=== PATIENT | male | born 1945 | race Caucasian/White ===

== ENCOUNTER 2017-10-05 07:29 | Inpatient (IN) ==
[2017-10-05] MEDS ORDERED: 0.9 % Sodium Chloride 1,000 ML IVC ONE ×2 (07:46→09:57)
[2017-10-05] MEDS ORDERED: *HR* FentaNYL (PF) 100 MCG/2 ML VIAL IVP ONE (07:46)
[2017-10-05] MEDS ORDERED: *HR* HYDROmorphone (PF) 1 MG/ML SYRINGE IVP ONE ×2 (08:24→09:44)
[2017-10-05 08:32] LABS: Basophils % 0.2 %; Eosinophils % 0.1 %; Hematocrit 39.5 % (37.5-50.1); Hemoglobin 13.7 g/dL (12.9-16.9); Immature Granulocytes % 0.4 % (0-4); Lymphocytes # 1.3 K/mcL (0.6-4.6); Lymphocytes % 8.5 %; Mean Corpuscular HGB Conc 34.7 g/dL (31.6-35.5); Mean Corpuscular Hemoglobin 33.3 pg (28.0-33.3); Mean Corpuscular Volume 95.9 fL (83.0-100.0); Mean Platelet Volume 10.5 fL (9.4-12.4); Monocytes # 2.1 K/mcL (0.0-1.3); Neutrophils # 11.4 K/mcL (1.6-8.9); Platelet Count 179 K/mcL (140-400); Red Blood Count 4.12 M/mcL (4.19-5.50); Red Cell Distribution Width 13.2 % (11.5-14.5); Segmented Neutrophils % 76.8 %
[2017-10-05 08:42] LABS: Alanine Aminotransferase 14 Units/L (7-52); Albumin 4.2 g/dL (3.5-5.7); Albumin/Globulin Ratio 1.4 (1.1-2.2); Alkaline Phosphatase 70 Units/L (34-104); Aspartate Amino Transferase 11 Units/L (13-39); BUN/Creatinine Ratio 15 (6-26); Bilirubin,Direct 0.4 mg/dL (0.0-0.2); Bilirubin,Indirect 0.8 mg/dL (0.0-1.2); Bilirubin,Total 1.2 mg/dL (0.3-1.0); Blood Urea Nitrogen 16 mg/dL (8-23); Calcium 9.5 mg/dL (8.6-10.3); Carbon Dioxide 25 mEq/L (23-29); Chloride 105 mEq/L (98-107); Glucose 119 mg/dL (70-105); Lipase 4 Units/L (11-82); Osmolality,Calculated 286 (280-300); Potassium 3.7 mEq/L (3.5-5.1); Sodium 137 mEq/L (136-145); Total Protein 7.2 g/dL (6.4-8.9); eGFR For African Americans > 60 (> 60); eGFR For Non-African Americans > 60 (> 60)
[2017-10-05 08:49] LABS: Bilirubin,Urine Negative (Negative); Blood,Urine Small (Negative); Clarity,Urine Clear (Clear); Color,Urine Dark Yellow (Yellow); Glucose,Urine (UA) Normal (Normal); Ketones,Urine Trace mg/dL (Negative); Leukocyte Esterase,Urine Trace (Negative); Nitrite,Urine Negative (Negative); PH,Urine 6.5 pH Units (5.0-8.0); Protein,Urine 30 mg/dL (Neg-Trace); Specific Gravity,Urine 1.024 (1.010-1.025); Urobilinogen,Urine Normal (Normal)
[2017-10-05 08:52] LABS: Bacteria,Urine None Seen per hpf (None-Few); Hyaline Casts,Urine None Seen per lpf (None-Few); RBC,Urine 15-30 per hpf (0-3); Squamous Epithelial Cell,Urine Many per lpf (None-Few); WBC,Urine 0-3 per hpf (0-3)
--- NOTE | 2017-10-05 08:52 | Emergency Department Note ---
Disposition Clinical Impression: Pulmonary embolism on right, Shortness of breath, Right upper quadrant pain, Pleuritic chest pain Disposition: Admitted As Inpatient Condition: Fair Time of Disposition: 10:55 Abdominal Pain HPI - General Chief Complaint: ED Abdominal Pain Stated Complaint: Right flank pain Time Seen by Provider: 10/05/17 07:34 Source: patient, EMS Nursing Notes Reviewed: Yes Vital Signs Reviewed: Yes - History of Present Illness HPI Narrative: 72-year-old male complains of right upper quadrant/left lower rib area pain 2 days. Patient states he woke up from sleep 2 days ago with a slight 1/10 irritating pain to the right upper quadrant that has progressed to 10/10 1 day later and is currently 8/10. Patient states pain is sharp and constant without radiation. Patient finds it hard to take a deep breath. 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 Pain Scale: 8 - Related Data Home Medications Medication Instructions Recorded Confirmed Aspirin Enteric Coated [Aspirin EC] 325 mg PO DAILY 10/05/17 10/05/17 Lisinopril [Zestril] 5 mg PO HS 10/05/17 10/05/17 Metoprolol XL (24 HR) Succ [Toprol 25 mg PO HS 10/05/17 10/05/17 XL] Omeprazole [PriLOSEC] 20 mg PO DAILY 10/05/17 10/05/17 Simvastatin [Zocor] 40 mg PO QPM 10/05/17 10/05/17 Allergies Allergy/AdvReac Type Severity Reaction Status Date / Time No Known Allergies Allergy Verified 10/05/17 07:50 Constitutional: Reports: fever, chills Eyes: Denies: vision change ENT ED: Denies: congestion Cardiovascular: Reports: chest pain Respiratory: Reports: cough Gastrointestinal: Reports: abdominal pain. Denies: nausea, vomiting, diarrhea Genitourinary: Denies: urgency, dysuria, frequency Musculoskeletal: Denies: back pain, neck pain Integumentary: Denies: rash Neurological: Denies: headache Abdominal Pain PMH - Past Medical History Medical history: Reports: no medical history Male Surgical History: Reports: coronary bypass (CABG) Psychiatric history: Reports: no psych history - Social History Smoking status: Current every day smoker Alcohol use: Reports: none Drug use: Reports: none Physical Exam Vital Signs Temperature 98.1 F 10/05/17 07:32 Pulse Rate 100 10/05/17 07:32 Respiratory Rate 22 10/05/17 07:32 Blood Pressure 155/107 10/05/17 07:32 O2 Sat by Pulse Oximetry 95 10/05/17 07:32 Temperature 98.1 F 10/05/17 07:32 Pulse Rate 96 10/05/17 08:42 Respiratory Rate 22 10/05/17 08:42 Blood Pressure 157/82 10/05/17 08:42 O2 Sat by Pulse Oximetry 96 10/05/17 08:42 Oxygen Delivery Oxygen Delivery Room Air 72-year-old male who is alert and oriented 3 and in acute distress secondary to pain in his right upper quadrant that is making it difficult for him to take deep breaths. Patient's currently afebrile slightly tachycardic and hypertensive - General Limitations: no limitations General appearance: alert - Head Head exam: atraumatic, normocephalic, normal inspection - Eye Eye exam: Present: normal appearance, PERRL, EOMI - ENT ENT exam: normal exam, normal oropharynx, mucous membranes moist - Neck Neck exam: Present: normal inspection, full ROM, trachea midline - Chest Chest inspection: Present: normal inspection, symmetric chest wall rise, tenderness (Right lower costal region along axillary line) - Cardiovascular Cardiovascular exam: Present: normal rhythm, tachycardia - Abdominal Exam Abdominal exam: Present: soft, tenderness, normal bowel sounds. Absent: distention, guarding, rebound, rigidity Abdominal tenderness: Present: RUQ - Extremities Exam Extremities exam: Present: normal inspection, full ROM. Absent: tenderness, pedal edema Course - Consultations Consultation #1: Radiology Dr. Saunders: PE RLL with infarc. no right ventricular strain. patent aorta with graft. Time: 11:05 Vital Signs Temperature 98.1 F 10/05/17 07:32 Pulse Rate 100 10/05/17 07:32 Respiratory Rate 22 10/05/17 07:32 Blood Pressure 155/107 10/05/17 07:32 O2 Sat by Pulse Oximetry 95 10/05/17 07:32 Temperature 99.1 F 10/05/17 16:34 Pulse Rate 91 10/05/17 16:34 Respiratory Rate 16 10/05/17 16:34 Blood Pressure 136/81 10/05/17 16:34 O2 Sat by Pulse Oximetry 98 10/05/17 16:34 Oxygen Delivery Oxygen Delivery Nasal Cannula Abdominal Pain - MDM Narrative Medical decision making narrative: Right upper quadrant/lower rib region pain with difficulty taking deep breaths concerning for PE, pneumonia, ACS/MS, hepatitis, vascular occlusion, renal infection, UTI, kidney stones 0800:D-dimer taken along with CT abdomen and pelvis to check for kidney stones and SBO. 0911: D-dimer elevated at 51,000: Concern for neoplasm, PE. Patient sent for CTA of chest and abdomen. CTA chest shows positive PE. Patient is being started on heparin for right sub- segmental PE. Patient does not have hypotension. Patient's labs are otherwise unremarkable outside of a slight elevation of WBC of 14.6. Current plan is for patient to be transferred because we do not have any available rooms for admission. Patient has been updated and accepts decision and plan. Patient's pain is well controlled at this time. Patient has had 50 g of fentanyl IV which had no effect on pain symptom and is therefore switched to dilaudid. Patient has been given 2 x 1 mg of Dilaudid IV, as well as Zofran for nausea from the medications. Dr. Kerns of [facility] accepted Pt for transfer at 1051hrs. 1220hrs: Unfortunately we were informed that they do not have a telemetry bed and patient will not be able to be transferred. 1322 hrs.: We have a bed available here now and Dr. Dhillon the hospitalist as accepted patient for admission at 1322 hrs. 1400: Dr. Foster of Vascular surgery has been consulted concerning patient's abdominal CT findings of aortic aneurysm and thrombus formation in aortic stent. - Lab Data Lab results reviewed: Yes I reviewed the patient's lab results. Lab results narrative: Short CBC 10/05/17 Range/Units 08:00 WBC 14.8 H (4.3-11.1) K/mcL Hgb 13.7 (12.9-16.9) g/dL Hct 39.5 (37.5-50.1) % Plt Count 179 (140-400) K/mcL Neutrophils # 11.4 H (1.6-8.9) K/mcL BMP 10/05/17 Range/Units 08:00 Sodium 137 (136-145) mEq/L Potassium 3.7 (3.5-5.1) mEq/L Chloride 105 (98-107) mEq/L Carbon Dioxide 25 (23-29) mEq/L BUN 16 (8-23) mg/dL Creatinine 1.08 (0.70-1.30) mg/dL Glucose 119 H (70-105) mg/dL Calcium 9.5 (8.6-10.3) mg/dL Cardiac Enzymes 10/05/17 Range/Units 08:00 Troponin I < 0.03 (< 0.04) ng/mL Liver Function 10/05/17 Range/Units 08:00 Total Bilirubin 1.2 H (0.3-1.0) mg/dL Direct Bilirubin 0.4 H (0.0-0.2) mg/dL AST 11 L (13-39) Units/L ALT 14 (7-52) Units/L Alkaline Phosphatase 70 (34-104) Units/L Albumin 4.2 (3.5-5.7) g/dL Urine 10/05/17 Range/Units 08:17 Urine Color Dark Yellow (Yellow) Urine Clarity Clear (Clear) Urine pH 6.5 (5.0-8.0) pH Units Ur Specific Odell 1.024 (1.010-1.025) Urine Protein 30 H (Neg-Trace) mg/dL Urine Glucose (UA) Normal (Normal) mg/dL Result diagrams: 10/05/17 08:00 10/05/17 08:00 Lab Results 10/05/17 10/05/17 10/05/17 Range/Units 08:00 08:00 08:00 WBC 14.8 H (4.3-11.1) K/mcL RBC 4.12 L (4.19-5.50) M/mcL Hgb 13.7 (12.9-16.9) g/dL Hct 39.5 (37.5-50.1) % MCV 95.9 (83.0-100.0) fL MCH 33.3 (28.0-33.3) pg MCHC 34.7 (31.6-35.5) g/dL RDW 13.2 (11.5-14.5) % Plt Count 179 (140-400) K/mcL MPV 10.5 (9.4-12.4) fL Immature Gran % 0.4 (0-4) % Seg Neutrophils % 76.8 % Lymphocytes % 8.5 % Monocytes % 14.0 % Eosinophils % 0.1 % Basophils % 0.2 % Neutrophils # 11.4 H (1.6-8.9) K/mcL Lymphocytes # 1.3 (0.6-4.6) K/mcL Monocytes # 2.1 H (0.0-1.3) K/mcL Eosinophils # 0.0 (0.0-0.6) K/mcL Basophils # 0.0 (0.0-0.2) K/mcL PT (9.4-12.1) Seconds INR APTT (26.0-36.0) Seconds D-Dimer (0-500) ng/mLFEU Sodium 137 (136-145) mEq/L Potassium 3.7 (3.5-5.1) mEq/L Chloride 105 (98-107) mEq/L Carbon Dioxide 25 (23-29) mEq/L BUN 16 (8-23) mg/dL Creatinine 1.08 (0.70-1.30) mg/dL Est GFR ( Amer) > 60 (> 60) Est GFR (Non-Af Amer) > 60 (> 60) BUN/Creatinine Ratio 15 (6-26) Glucose 119 H (70-105) mg/dL Calculated Osmolality 286 (280-300) Calcium 9.5 (8.6-10.3) mg/dL Total Bilirubin 1.2 H (0.3-1.0) mg/dL Direct Bilirubin 0.4 H (0.0-0.2) mg/dL Indirect Bilirubin 0.8 (0.0-1.2) mg/dL AST 11 L (13-39) Units/L ALT 14 (7-52) Units/L Alkaline Phosphatase 70 (34-104) Units/L Troponin I < 0.03 (< 0.04) ng/mL Serum Total Protein 7.2 (6.4-8.9) g/dL Albumin 4.2 (3.5-5.7) g/dL Globulin 3.0 (2.4-3.5) g/dL Albumin/Globulin Ratio 1.4 (1.1-2.2) Lipase 4 L (11-82) Units/L Urine Color (Yellow) Urine Clarity (Clear) Urine pH (5.0-8.0) pH Units Ur Specific Odell (1.010-1.025) Urine Protein (Neg-Trace) mg/dL Urine Glucose (UA) (Normal) mg/dL Urine Ketones (Negative) mg/dL Urine Blood (Negative) Urine Nitrite (Negative) Urine Bilirubin (Negative) Urine Urobilinogen (Normal) mg/dL Ur Leukocyte Esterase (Negative) Urine Microscopic RBC (0-3) per hpf Urine Microscopic WBC (0-3) per hpf Ur Squamous Epith Cells (None-Few) per lpf Urine Bacteria (None-Few) per hpf Hyaline Casts (None-Few) per lpf Ur Culture Indicated? (NO) 10/05/17 10/05/17 10/05/17 Range/Units 08:00 08:17 16:03 WBC (4.3-11.1) K/mcL RBC (4.19-5.50) M/mcL Hgb (12.9-16.9) g/dL Hct (37.5-50.1) % MCV (83.0-100.0) fL MCH (28.0-33.3) pg MCHC (31.6-35.5) g/dL RDW (11.5-14.5) % Plt Count (140-400) K/mcL MPV (9.4-12.4) fL Immature Gran % (0-4) % Seg Neutrophils % % Lymphocytes % % Monocytes % % Eosinophils % % Basophils % % Neutrophils # (1.6-8.9) K/mcL Lymphocytes # (0.6-4.6) K/mcL Monocytes # (0.0-1.3) K/mcL Eosinophils # (0.0-0.6) K/mcL Basophils # (0.0-0.2) K/mcL PT 13.0 H 14.2 H (9.4-12.1) Seconds INR 1.2 1.3 APTT 26.6 64.6 H D (26.0-36.0) Seconds D-Dimer 52481 H (0-500) ng/mLFEU Sodium (136-145) mEq/L Potassium (3.5-5.1) mEq/L Chloride (98-107) mEq/L Carbon Dioxide (23-29) mEq/L BUN (8-23) mg/dL Creatinine (0.70-1.30) mg/dL Est GFR ( Amer) (> 60) Est GFR (Non-Af Amer) (> 60) BUN/Creatinine Ratio (6-26) Glucose (70-105) mg/dL Calculated Osmolality (280-300) Calcium (8.6-10.3) mg/dL Total Bilirubin (0.3-1.0) mg/dL Direct Bilirubin (0.0-0.2) mg/dL Indirect Bilirubin (0.0-1.2) mg/dL AST (13-39) Units/L ALT (7-52) Units/L Alkaline Phosphatase (34-104) Units/L Troponin I (< 0.04) ng/mL Serum Total Protein (6.4-8.9) g/dL Albumin (3.5-5.7) g/dL Globulin (2.4-3.5) g/dL Albumin/Globulin Ratio (1.1-2.2) Lipase (11-82) Units/L Urine Color Dark Yellow (Yellow) Urine Clarity Clear (Clear) Urine pH 6.5 (5.0-8.0) pH Units Ur Specific Odell 1.024 (1.010-1.025) Urine Protein 30 H (Neg-Trace) mg/dL Urine Glucose (UA) Normal (Normal) mg/dL Urine Ketones Trace H (Negative) mg/dL Urine Blood Small H (Negative) Urine Nitrite Negative (Negative) Urine Bilirubin Negative (Negative) Urine Urobilinogen Normal (Normal) mg/dL Ur Leukocyte Esterase Trace H (Negative) Urine Microscopic RBC 15-30 H (0-3) per hpf Urine Microscopic WBC 0-3 (0-3) per hpf Ur Squamous Epith Cells Many H (None-Few) per lpf Urine Bacteria None Seen (None-Few) per hpf Hyaline Casts None Seen (None-Few) per lpf Ur Culture Indicated? NO. (NO) - Radiology Data Radiology results reviewed: Yes I reviewed the patient's radiology results. - EKG Data EKG attestation: Yes I reviewed and interpreted this EKG. EKG results narrative: EKG taken 10/05/2017 at 0737 hrs. shows sinus rhythm at at a rate of 96 beats minute with no acute ST elevations or depressions and 80s, no signs ischemia. No T-wave inversion in V2 or V3 area no S1Q3T3. No Brugada. Previous EKG for comparison taken 07/24/2006 shows sinus rhythm but has ST elevations in leads 1 aVL, V2 V3 and V4 V5 and V6 with reciprocal changes in II, III, and F aVF
[2017-10-05] MEDS ORDERED: Ondansetron 4 MG/2 ML VIAL IVP PRN ×2 (10:24→14:51)
[2017-10-05] MEDS ORDERED: *HR* Heparin 5,000 UNIT/ML VIAL IVP ONE (10:37)
[2017-10-05] MEDS ORDERED: *HR* Heparin 5,000 UNIT/ML VIAL IVP PRN (10:37)
[2017-10-05 10:54] LABS: INR 1.2
[2017-10-05 10:57] LABS: Activated Partial Thrombo Time 26.6 Seconds (26.0-36.0)
[2017-10-05] MEDS: Heparin 25,000 UNIT/500 ML D5W 25,000 UNIT/500 ML BAG IVC SCH (11:10)
[2017-10-05] MEDS ORDERED: *HR* Morphine 2 MG/ML SYRINGE IVP ONE (13:51)
[2017-10-05] MEDS ORDERED: Naloxone 0.4 MG/ML INJ IVP PRN (14:51)
[2017-10-05] MEDS ORDERED: Acetaminophen 325 MG TABLET PO PRN (14:51)
--- NOTE | 2017-10-05 15:14 | Internal Med History&Physical ---
Date of Encounter: 10/05/17 Time of Encounter: 14:00 Assessment and Plan (1) Pulmonary embolism on right Current visit: Yes Status: Acute Acute and unprovoked PE as seen on CTA of abdomen/pelvis today. D-dimer 51,866 on admission. CTA shows right lower lobe pulmonary embolism with parenchymal lung disease compatible with infarct and small nonocclusive segmental pulmonary embolus without evidence of infarct. Pt. denies previous anticoagulation. Continue heparin drip. Stair-step pain medications for pain mgmt. Vascular surgery consult ordered in ED. Patient to follow-up with hematology on an outpatient basis. Pt. discussed w/Dr. Dhillon who is in agreement w/plan of care. Pt. is high risk for further morbidity d/t current emboli, thrombosis of the right common femoral artery, hx, and risk factors of current tobacco abuse. Inpatient. (2) Pleuritic chest pain Current visit: Yes Status: Acute Acute right-sided chest pain w/deep inspiration for the past two days. CT of the abdomen/pelvis today w/contrast shows right lower lobe pulmonary emboli with parenchymal lung disease compatible with infarct. Small nonocclusive left lower lobe segmental pulmonary embolus without evidence of infarct. No definite findings of right ventricular strain. Pulmonary emphysema. Continue heparin drip. Supplemental O2 w/titration and SpO2 monitoring. (3) Leukocytosis Current visit: Yes Status: Acute Acute leukocytosis w/WBC of 14.8 on admission most likely reactive in nature d/ t current PE. Pt. denies recent illness or sx and is afebrile. Will monitor pt. and f/u labs. Order blood cultures if leukocytosis increases. Qualifiers: Leukocytosis type: unspecified Qualified Code(s): D72.829 - Elevated white blood cell count, unspecified (4) Tobacco abuse counseling Current visit: Yes Status: Acute Hx of chronic tobacco abuse. Pt. reports smoking 1 PPD currently. Pt. is willing to quit at this time d/t currently health issues. Dangers of tobacco abuse and methods for quitting discussed. Pt. denies need for nicotine patch at this time. 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 CTA of abdomen/pelvis today shows thrombosis of the right common femoral artery graft anastomosis extending into the proximal superficial and deep femoral arteries. Pt. denies anticoagulation or Plavix. Placed on heparin drip for current PE sx. Continue heparin drip. Vascular surgery consulted in ED. Monitor pt. closely. (6) Aortic aneurysm, abdominal Current visit: Yes Status: Chronic Hx of chronic abdominal aortic aneurysms. CT of the abdomen and pelvis today with contrast shows 4.3 cm aneurysm of the remnant abdominal aorta. There is an aneurysm of the excluded distal abdominal aorta which is completely thrombosed. No evidence of dissection. Pt. to f/u on OP basis. Qualifiers: Presence of rupture: without rupture Qualified Code(s): I71.4 - Abdominal aortic aneurysm, without rupture (7) DVT prophylaxis Current visit: Yes Status: Acute Patient placed on heparin drip d/t current PE. Monitor pt. for signs of bleeding. Internal Medicine - H&P: HPI Chief complaint: RUQ abdominal pain/Pain w/inspiration Admitted From: Emergency Dept Plans for Post Hospital Care: Home History of present illness: Mr. Sena is a 72 year old male with medical hx of CAD and coronary bypass and stent x1 presents from the ED w/chief complaint of RUQ abdominal pain that becomes worse w/deep inspirations for the past two days. States pain began as a 1 or 2/10 but became 10/10 today. Sharp and stabbing w/o radiation. Reports smoking 1 PPD. Pt. reports SOB but denies recent illness, fever, chills, nausea , vomiting, headache, changes in vision, chest pain, palpitations, cough, unusual bleeding, pedal edema, numbness, tingling, dizziness, lightheadedness, pre-syncope, or syncope. Past Med Surg Social Fam HX - Past Medical History Source: patient, old records reviewed Medical history: coronary artery disease Psychiatric history: no psych history - Past Surgical History Surgical History: angioplasty/stent (x1), coronary bypass (CABG), vascular surgery - Social History Smoking Status: Current every day smoker Packs per day: 1 PPD Smokeless Tobacco Status: No Alcohol use: none Drug use: none Current living situation: Home Activity Level: Independent ambulation Recent Out of Country Travel Within the Last 8 Weeks: No Exposure or Possible Exposure to Illness During Travel: No - Family History Father Race: Family Member Ethnicity: Non- Living Status: Age at : 62 Cause of : Leukemia Hx Family Cancer: Yes (Leukemia) Mother Race: Family Member Ethnicity: Non- Living Status: Age at : 93 Cause of : Old age Brother Race: Family Member Ethnicity: Non- Living Status: Age at : 71 Cause of : Prostate cancer Hx Family Cancer: Yes (Prostate) Sister Race: Family Member Ethnicity: Non- Living Status: Still Living Hx Family Medical Disorders: No Internal Medicine - H&P: Meds 3 Allergy/AdvReac Type Severity Reaction Status Date / Time No Known Allergies Allergy Verified 10/05/17 07:50 All Systems PM: A 10-system review of systems was performed and is negative for pertinent findings except as documented above in the HPI. - Constitutional Constitutional: no chills, no fever(s), no night sweats - EENT Eyes: no change in vision, no discharge, no pain, no photophobia Ears: no ear discharge, no ear pain, no tinnitus Nose, mouth and throat: no dysphagia, no nasal discharge, no neck pain, no sore throat - Breasts Breasts: as per HPI - Cardiovascular Cardiovascular ROS IM: as per HPI, dyspnea, dyspnea on exertion, no chest pain, no diaphoresis, no lightheadedness, no palpitations, no syncope - Respiratory Respiratory: as per HPI, dyspnea, dyspnea on exertion, pain on inspiration, no cough, no wheezing, no excessive phlegm production - Gastrointestinal Gastrointestinal: no abdominal pain, no diarrhea, no hematemesis, no hematochezia, no melena, no nausea, no vomiting - Genitourinary Genitourinary ROS male: as per HPI - Musculoskeletal Musculoskeletal ROS IM: no numbness, no tingling - Integumentary Integumentary IM: no rash, no unusual bruising - Neurological Neurological ROS: no confusion, no convulsions, no focal weakness, no numbness, no tingling, no tremor(s) - Psychiatric Psychiatric: as per HPI - Endocrine Endocrine IM: as per HPI - Hematologic/Lymphatic Hematologic/Lymphatic: no easy bruising - Allergic/Immunologic Allergic/Immunologic: as per HPI - Constitutional Vitals: Temp Pulse Resp BP Pulse Ox 98.0 F 96 21 154/80 96 10/05/17 13:45 10/05/17 13:45 10/05/17 13:45 10/05/17 13:45 10/05/17 13:45 General appearance: Present: cooperative, mild distress (Pain w/inspiration), A& O X 3, pleasant, answers questions appropriately - Head Head exam: Present: atraumatic, normocephalic - Eye Eye exam: Present: PERRL, conjuntiva pink, sclera anicteric Pupils: Present: PERRL - ENT ENT exam: Present: normal exam - Neck Neck exam general surgery: Present: normal inspection, supple, trachea midline. Absent: lymphadenopathy - Respiratory Respiratory exam: Present: accessory muscle use (D/t pain w/inspiration), CTAB. Absent: rales, rhonchi, wheezes - Cardiovascular Cardiovascular exam: Present: RRR, +S1, +S2. Absent: diastolic murmur, gallop, rubs, systolic murmur - GI/Abdominal GI/Abdominal exam: Present: normal bowel sounds, soft, tenderness (RUQ), no peritoneal signs. Absent: distended - Rectal Rectal exam: Present: deferred - Additional comments: exam deferred. - Extremities Exam Extremities exam: Present: warm, radial pulses palpable and symmetrical. Absent : calf tenderness, cyanotic, pedal edema - Back Exam Back exam: Present: normal inspection - Neurological Exam Neurological exam: Present: CN II-XII intact, oriented X3, no focal deficits. Absent: pronater drift, facial droop, speech deficit - Psychiatric Psychiatric exam: Present: anxious, normal mood - Skin Skin exam: Present: dry, intact Internal Med - H&P Results - Labs CBC & Chem 7: 10/05/17 08:00 10/05/17 08:00 - EKG Data EKG shows normal: sinus rhythm - EKG Data Prior EKG available for review: yes EKG comments: 10/05/17 15:20 EKG dated 07/24/06 sinus rhythm with possible acute anteroseptal infarct, lateral ST elevation, consider acute infarct, inferior ST-T change suggesting myocardial injury/ischemia. EKG dated 10/05/17 shows sinus rhythm with incomplete right bundle branch block. - Diagnostic Studies Chest x-ray Additional comments: Impressions Chest X-Ray 10/05/17 07:46 IMPRESSION: 1. Bibasilar subsegmental atelectasis. D/ / Perez Smith MD / Perez Smith MD Interpreting Provider: Perez Smith MD CT scan - abdomen Additional comments: Impressions Abdomen/Pelvis CT 10/05/17 08:22 IMPRESSION: Right lower lobe airspace disease consistent with pneumonia. No pleural effusion is visible. No evidence of acute abnormality in the abdomen or pelvis. Cholelithiasis. Urinary bladder diverticulum versus ureterocele. Prior aortic-iliac bypass grafting, with dilation of proximal abdominal aorta measuring up to 3.4 cm. Consider direct comparison with any prior outside imaging. The distal iliac grafts appear dilated, greater on the right. RECOMMENDATIONS: Managing Abdominal Aortic Aneurysms 2.6-2.9 cm: Every 5 years* 3.0-3.4 cm: Every 3 years. 3.5-3.9 cm: Every 1 year. 4.0-4.4 cm: Every 1 year. Recommend vascular consultation. 4.5-5.4 cm: Every 6 months. Recommend vascular consultation. Greater than or equal to 5.5 cm: Referral to vascular surgeon. *For abdominal aortas with maximum diameter of 2.6-2.9 cm meeting criteria for AAA (>50% of proximal normal segment). Reference: J Vasc Surg. 2008;50(4 Suppl):S2-49 D/ / William Olivares MD / William Olivares MD Interpreting Provider: William Olivares MD Other Images Additional comments: Impressions Chest CTA 10/05/17 09:57 IMPRESSION: 1. Right lower lobe pulmonary emboli with parenchymal lung disease compatible with infarct. Small nonocclusive left lower lobe segmental pulmonary embolus without evidence of infarct. No definite findings of right ventricular strain 2. Status post aortobifemoral bypass. There is 4.3 cm aneurysm of the remnant abdominal aorta. There is aneurysm of the excluded distal abdominal aorta which is completely thrombosed. There is thrombosis at the right common femoral artery -graft anastomosis extending into the proximal superficial and deep femoral arteries. 3. Pulmonary emphysema 4. Cholelithiasis 5. Colonic diverticulosis 6. Prostatic enlargement RECOMMENDATIONS: Managing Abdominal Aortic Aneurysms 2.6-2.9 cm: Every 5 years* 3.0-3.4 cm: Every 3 years. 3.5-3.9 cm: Every 1 year. 4.0-4.4 cm: Every 1 year. Recommend vascular consultation. 4.5-5.4 cm: Every 6 months. Recommend vascular consultation. Greater than or equal to 5.5 cm: Referral to vascular surgeon. *For abdominal aortas with maximum diameter of 2.6-2.9 cm meeting criteria for AAA (>50% of proximal normal segment). D/ / Jae Saunders MD / Jae Saunders MD Interpreting Provider: Jae Saunders MD Abdomen/Pelvis CTA 10/05/17 10:00
--- NOTE | 2017-10-05 15:52 | Vascular/Endovasc Consult Note ---
Date of Encounter: 10/06/17 Time of Encounter: 15:49 Assessment and Plan (1) PAD (peripheral artery disease) Current Visit: Yes Status: Chronic The patient has significant bilateral lower extremity vascular occlusive disease. This is evidenced by lack of palpable popliteal and pedal pulses bilaterally. He also has significant claudication symptoms. I believe this is a long-standing process. This is not an acute event. This can be worked up and dealt with on an elective basis. This will require a rather complex repair as he needs attention addressed to his aortoiliac system as well as to his femoral popliteal system. (2) Femoral artery pseudo-aneurysm, right Current Visit: Yes Status: Chronic The patient has a relatively large right femoral pseudoaneurysm related to his aortobifemoral bypass graft that was performed approximately 25 years ago. It would appear that the patient has thrombosed his common femoral artery as well as the superficial femoral and profunda femoris artery. Most likely he will require rather extensive reconstruction of the right groin vessels and then some type of bypass graft for the right lower extremity. Again this is a chronic process and can be dealt with in the future once his pulmonary embolism has been treated. (3) Femoral artery pseudo-aneurysm, left Current Visit: Yes Status: Chronic Please see comments for right femoral pseudoaneurysm. This is a chronic process. This will need to be dealt with in the future with open and direct vascular reconstruction. (4) Pulmonary embolism on right Current Visit: Yes Status: Acute Patient is symptomatic from pulmonary emboli. The patient actually has pulmonary emboli in both the right lower lobe and left lower lobe. There are multiple emboli in the right lower lobe. There is nonocclusive process in the left lower lobe. Patient is on intravenous heparin. (5) Aortic aneurysm, abdominal Current Visit: Yes Status: Chronic Patient has an abdominal aortic aneurysm. The distal infrarenal aneurysm is thrombosed. The DelcidEliecer process involves the juxtarenal aneurysm and the graft. This will need further follow-up at this time is not at an acute process and is not symptomatic. Qualifiers: Presence of rupture: without rupture Qualified Code(s): I71.4 - Abdominal aortic aneurysm, without rupture - History of Present Illness Consult date: 10/05/17 Consult reason: Abdominal aortic aneurysms Chief complaint: Chest pain and shortness of breath History of present illness: Mr. Sena is a 72 year old male Who was admitted via the emergency room because of worsening chest pain over the past 2 days. Diagnosis of this lead to the finding of bilateral lower lobe pulmonary emboli with a large amount of pulmonary embolic material in the right lower lobe and all small amount that is nonocclusive in the left lower lobe. Patient was admitted and placed on intravenous heparin drip. As part of his evaluation because of right upper quadrant and right lower chest pain a CT scan was performed of the chest and abdomen and pelvis. This demonstrated a previous aortobifemoral bypass graft as well as aneurysmal changes of the abdominal aorta. On interviewing the patient he tells me that he underwent surgery for blocked arteries in his legs about 25 years ago here at [facility]. He does not recall the name of the surgeon that performed the operation. He states that when they perform the surgery they encountered the aneurysm that was not previously suspected. Therefore I believe that they most likely encountered a thrombosed abdominal aortic aneurysm that was not appreciated on the preoperative evaluation. The patient states that overall he been feeling well and after his bypass surgery his legs have returned to normal. This changed however about 2 years ago when he had recurrence of his symptoms. This is more noticeable to him in the right lower extremity versus the left. His walking tolerance is no more than about 100 yards. He states that he had gone up to the [facility] in [place] and it seen a physician there and had a CAT scan performed about 4 years ago. The findings on the CAT scan at that time did not indicate surgery and the patient did not proceed with any intervention. He has not had any formal vascular surgery follow-up or noninvasive testing for some time. The patient also relates to an episode of chest pain. He had a cardiac catheterization and a stent placed at [facility] about 10 years ago. Past Med Surg Social Fam HX - Past Medical History Medical history: coronary artery disease Psychiatric history: no psych history - Past Surgical History Surgical History: angioplasty/stent (x1), coronary bypass (CABG), vascular surgery (Aortobifemoral bypass graft) - Social History Smoking Status: Current every day smoker Packs per day: 1 PPD Smokeless Tobacco Status: No Alcohol use: none Drug use: none - Family History Father Race: Family Member Ethnicity: Non- Living Status: Age at : 62 Cause of : Leukemia Hx Family Cancer: Yes (Leukemia) Mother Race: Family Member Ethnicity: Non- Living Status: Age at : 93 Cause of : Old age Brother Race: Family Member Ethnicity: Non- Living Status: Age at : 71 Cause of : Prostate cancer Hx Family Cancer: Yes (Prostate) Sister Race: Family Member Ethnicity: Non- Living Status: Still Living Hx Family Medical Disorders: No Medications and Allergies Aspirin Enteric Coated [Aspirin EC] 325 mg PO DAILY 10/05/17 [History] Lisinopril [Zestril] 5 mg PO HS 10/05/17 [History] Metoprolol XL (24 HR) Succ [Toprol XL] 25 mg PO HS 10/05/17 [History] Omeprazole [PriLOSEC] 20 mg PO DAILY 10/05/17 [History] Simvastatin [Zocor] 40 mg PO QPM 10/05/17 [History] 3 Allergy/AdvReac Type Severity Reaction Status Date / Time No Known Allergies Allergy Verified 10/05/17 07:50 All Systems Review: A 10-system review of systems was performed and is negative for pertinent findings except as documented above in the HPI. Exam Vital Signs, Last 4 Hours Temp Pulse Resp BP Pulse Ox 10/05/17 13:45 98.0 F 96 21 154/80 96 General: Present: Conversant, No Apparent Distress, Well developed, Well nourished HEENT: Present: Atraumatic, Normocephaly, Trachea midline, Pupils equal Neck: Absent: JVD, Lymphadenopathy, Left Carotid bruit, Right Carotid bruit, Midline deformity, Tracheal deviation, Thyromegaly Cardiac: Present: Reg Rate and Rhythm, Normal S1 and S2, Other (Low grade tachycardia) Lungs: Present: Decreased breath sounds Neuro: Present: Alert and responsive, No focal deficits noted, Cranial nerves grossly intact Abdomen: Present: Soft, Non-tender, Other (No abdominal bruits. No palpable or pulsatile masses.). Absent: Masses Vascular: Present: Bruit (The patient has bilateral femoral bruits), Pulse, absent (I do not palpate popliteal or pedal pulses on either side.), Pulse, normal (Bilateral femoral pulses are palpable), Color/Temperature (The color and temperature of his feet are within normal limits.), Surgical incisions (Old vertical midline incision of abdomen is well-healed.). Absent: Cyanosis, Edema Skin: Absent: No rashes noted on visualized skin, Wound/ulcer(s) Consult Discharge Plan - Plan Additional Instructions: The patient will need further vascular testing including a CT abdominal aortogram with runoff. I anticipate the patient will require further intervention including repair of the right femoral pseudoaneurysm as well as possible right femoral popliteal bypass grafting and possible endovascular intervention. The patient will also need follow-up CT scans of the abdomen to evaluate his aneurysms. Referrals: Kelvin Bhatia DO [Family Provider] - [facility] [Primary Care Provider] -
[2017-10-05 16:14] LABS: INR 1.3; Prothrombin Time 14.2 Seconds (9.4-12.1)
[2017-10-05] MEDS ORDERED: Mag Hydrox/Al Hydrox/Simeth 30 ML UDC PO PRN (16:38)
[2017-10-05] MEDS: *HR* Morphine 2 MG/ML SYRINGE IVP PRN (18:43)
[2017-10-05 19:14] LABS: Activated Partial Thrombo Time 64.6 Seconds (26.0-36.0)
[2017-10-05] MEDS: *HR* HYDROcodone/Acet 5/325 mg TABLET PO PRN (20:12)
[2017-10-05] MEDS: Metoprolol XL (24 HR) Succ 25 MG TAB.ER.24H PO SCH (21:51)
[2017-10-06] MEDS: *HR* Morphine 2 MG/ML SYRINGE IVP PRN ×4 (00:31→17:50)
[2017-10-06] MEDS: *HR* HYDROcodone/Acet 5/325 mg TABLET PO PRN ×3 (00:31→07:33)
[2017-10-06] MEDS: *HR* Heparin 5,000 UNIT/ML VIAL IVP PRN ×2 (01:29→08:43)
[2017-10-06 05:24] LABS: Basophils % 0.2 %; Eosinophils # 0.1 K/mcL (0.0-0.6); Eosinophils % 0.4 %; Hematocrit 35.6 % (37.5-50.1); Hemoglobin 12.8 g/dL (12.9-16.9); Immature Granulocytes % 0.4 % (0-4); Lymphocytes # 1.8 K/mcL (0.6-4.6); Lymphocytes % 12.8 %; Mean Corpuscular Hemoglobin 34.4 pg (28.0-33.3); Mean Corpuscular Volume 95.7 fL (83.0-100.0); Mean Platelet Volume 10.6 fL (9.4-12.4); Monocytes # 1.9 K/mcL (0.0-1.3); Monocytes % 13.4 %; Neutrophils # 10.3 K/mcL (1.6-8.9); Platelet Count 172 K/mcL (140-400); Red Blood Count 3.72 M/mcL (4.19-5.50); Red Cell Distribution Width 13.4 % (11.5-14.5); Segmented Neutrophils % 72.8 %
[2017-10-06 05:29] LABS: INR 1.3; Prothrombin Time 13.9 Seconds (9.4-12.1)
[2017-10-06 05:42] LABS: Hemoglobin A1C 5.2 %
[2017-10-06 05:51] LABS: Alanine Aminotransferase 10 Units/L (7-52); Albumin 3.4 g/dL (3.5-5.7); Albumin/Globulin Ratio 1.3 (1.1-2.2); Alkaline Phosphatase 56 Units/L (34-104); Aspartate Amino Transferase 13 Units/L (13-39); BUN/Creatinine Ratio 13 (6-26); Bilirubin,Total 0.8 mg/dL (0.3-1.0); Blood Urea Nitrogen 12 mg/dL (8-23); Calcium 8.4 mg/dL (8.6-10.3); Carbon Dioxide 23 mEq/L (23-29); Chloride 106 mEq/L (98-107); Chol/HDL Ratio 3.5 (0-4.9); Cholesterol 101 mg/dL (< 200); Globulin 2.6 g/dL (2.4-3.5); Glucose 113 mg/dL (70-105); HDL Cholesterol 29 mg/dL (40-59); LDL Cholesterol,Calculated 58 mg/dL (0-99); Magnesium 1.9 mg/dL (1.6-2.6); Osmolality,Calculated 279 (280-300); Potassium 3.6 mEq/L (3.5-5.1); Sodium 134 mEq/L (136-145); Triglycerides 68 mg/dL (< 150); eGFR For African Americans > 60 (> 60); eGFR For Non-African Americans > 60 (> 60)
[2017-10-06] MEDS: Heparin 25,000 UNIT/500 ML D5W 25,000 UNIT/500 ML BAG IVC SCH (07:32)
[2017-10-06] MEDS ORDERED: Aspirin Enteric Coated 325 MG Tablet PO SCH (09:00)
--- NOTE | 2017-10-06 11:33 | Vascular/Endovas Progress Note ---
Date of Encounter: 10/06/17 Time of Encounter: 08:30 - Assessment and plan (1) PAD (peripheral artery disease) Current Visit: Yes Status: Chronic The patient has significant bilateral lower extremity vascular occlusive disease. This is evidenced by lack of palpable popliteal and pedal pulses bilaterally. He also has significant claudication symptoms. I believe this is a long-standing process. This is not an acute event. This can be worked up and dealt with on an elective basis. This will require a rather complex repair as he needs attention addressed to his aortoiliac system as well as to his femoral popliteal system. (2) Femoral artery pseudo-aneurysm, right Current Visit: Yes Status: Chronic The patient has a relatively large right femoral pseudoaneurysm related to his aortobifemoral bypass graft that was performed approximately 25 years ago. It would appear that the patient has thrombosed his common femoral artery as well as the superficial femoral and profunda femoris artery. Most likely he will require rather extensive reconstruction of the right groin vessels and then some type of bypass graft for the right lower extremity. Again this is a chronic process and can be dealt with in the future once his pulmonary embolism has been treated. (3) Femoral artery pseudo-aneurysm, left Current Visit: Yes Status: Chronic Please see comments for right femoral pseudoaneurysm. This is a chronic process. This will need to be dealt with in the future with open and direct vascular reconstruction. (4) Pulmonary embolism on right Current Visit: Yes Status: Acute Patient is symptomatic from pulmonary emboli. The patient actually has pulmonary emboli in both the right lower lobe and left lower lobe. There are multiple emboli in the right lower lobe. There is nonocclusive process in the left lower lobe. Patient is on intravenous heparin. (5) Aortic aneurysm, abdominal Current Visit: Yes Status: Chronic Patient has an abdominal aortic aneurysm. The distal infrarenal aneurysm is thrombosed. The Delcid K process involves the juxtarenal aneurysm and the graft. This will need further follow-up at this time is not at an acute process and is not symptomatic. Qualifiers: Presence of rupture: without rupture Qualified Code(s): I71.4 - Abdominal aortic aneurysm, without rupture - Subjective Interval history: Mr. Sena Had uneventful night. He states he is able to breathe better today and is able to take a deep breath. He has been hemodynamically stable. I reviewed his noninvasive testing. This shows an ankle-brachial index of 0.32 on the right and 0.56 on the left. The duplex scan demonstrates a thrombosed right common femoral artery pseudoaneurysm. The left common femoral pseudoaneurysm remains patent. There is also suggestive aneurysms or pseudoaneurysms of the distal external iliac artery bilaterally. The patient has diffuse occlusions of the right superficial femoral, popliteal, and proximal tibial system on the right. The patient has an occluded left superficial femoral artery. Vital Signs, Last 4 Hours Temp Pulse Resp BP Pulse Ox 10/06/17 07:58 98.3 F 79 17 126/74 98 - Physical Examination General: Present: Conversant, No Apparent Distress HEENT: Present: Atraumatic Neck: Absent: JVD Vascular: Present: Pulse, absent (Patient has no palpable pulses at the popliteal or pedal level bilaterally.), Color/Temperature (The right foot is cooler and paler than the left.) Results 10/06/17 05:09 10/06/17 05:09 Lab Results, Last 24 hours 10/06/17 10/06/17 10/06/17 00:02 05:09 05:09 WBC 14.2 H Hgb 12.8 L Hct 35.6 L Plt Count 172 INR 1.3 APTT 46.2 H 72.0 H D Sodium Potassium Chloride Carbon Dioxide BUN Creatinine Glucose Calcium Magnesium Total Bilirubin AST ALT Alkaline Phosphatase 10/06/17 10/06/17 05:09 08:04 WBC Hgb Hct Plt Count INR APTT 52.7 H Sodium 134 L Potassium 3.6 Chloride 106 Carbon Dioxide 23 BUN 12 Creatinine 0.89 Glucose 113 H Calcium 8.4 L Magnesium 1.9 Total Bilirubin 0.8 AST 13 ALT 10 Alkaline Phosphatase 56 - Imaging / Other Tests Non Invasive Vascular Testing: report reviewed, image reviewed Consult Discharge Plan - Plan Additional Instructions: The patient will need further vascular testing including a CT abdominal aortogram with runoff. I anticipate the patient will require further intervention including repair of the right femoral pseudoaneurysm as well as possible right femoral popliteal bypass grafting and possible endovascular intervention. The patient will also need follow-up CT scans of the abdomen to evaluate his aneurysms. Referrals: Kelvin Bhatia DO [Family Provider] - [facility] [Primary Care Provider] -
--- NOTE | 2017-10-06 15:00 | Internal Med Progress Note ---
Date of Encounter: 10/06/17 Time of Encounter: 09:30 - Assessment and plan (1) Pulmonary embolism on right Current Visit: Yes Status: Acute Assessment and plan: 72-year-old male with past history of CAD and coronary bypass with stent 1 presented to ED complaining of right upper abdominal pain worse with inspiration. Reports history of DVTs. Chest x-ray demonstrated bibasilar subsegmental atelectasis. EKG is independently read and is normal sinus rhythm with no signs of ischemia. CTA confirmed right lower lobe pulmonary embolism with parenchymal lung disease compatible with infarct and small nonocclusive left lower lobe segmental pulmonary embolism without evidence of infarct. No evidence of right ventricular strain noted. Patient was started on heparin drip and aspirin. She reports improvement of dyspnea. Patient's kidney function is good and at baseline; continue with Prilosec and Zofran for GI prophylaxis. Continue pain management with Tylenol, Emelle 5, morphine as needed. Lovenox is preferred over unfractionated heparin due to longer duration of anticoagulation effect, better correlation between those and then the globulin response, lower risk of heparin-induced from a cytopenia, lower incidence of osteoporosis. Start Lovenox at 6 PM today discontinue heparin drip at 7 PM today. Monitor with a.m. labs (2) Shortness of breath Current Visit: Yes Status: Acute Assessment and plan: Improved. Shortness of breath likely secondary to right-sided pulmonary embolism. Continue with oxygen therapy as needed with goal of oxygen saturation greater than 92%. Managed per PE treatment. (3) Right upper quadrant pain Current Visit: Yes Status: Acute Assessment and plan: Resolved. (4) Pleuritic chest pain Current Visit: Yes Status: Acute Assessment and plan: Continue with pain management. Continue with Tylenol, local 5, morphine 2 mg as needed. (5) Leukocytosis Current Visit: Yes Status: Acute Assessment and plan: Chest x-ray and CT reviewed. Right lower lobe airspace disease consistent with pneumonia. Consider starting on levofloxacin. Continue with respiratory support. Qualifiers: Leukocytosis type: unspecified Qualified Code(s): D72.829 - Elevated white blood cell count, unspecified (6) DVT prophylaxis Current Visit: Yes Status: Acute Assessment and plan: Continue with heparin for now, switch to Lovenox at 6 PM, discontinue heparin at 7 PM. (7) Aortic aneurysm, abdominal Current Visit: No Status: Chronic Assessment and plan: VascularEndovascular consultation reviewed and recommendations appreciated. CT demonstrated prior already a left bypass grafting with dilation of proximal abdominal aorta measuring up to 3.4 cm. Management of an aortic aneurysm with this size is recommended to be every 3 years, no acute intervention needed at this time. Follow outpatient. Qualifiers: Presence of rupture: without rupture Qualified Code(s): I71.4 - Abdominal aortic aneurysm, without rupture (8) Tobacco abuse counseling Current Visit: No Status: Acute Assessment and plan: The patient is educated on importance of tobacco cessation. Follow-up outpatient. - Subjective Interval history: 71-year-old male with medical history of CAD and coronary bypass one stent, CABG 7 years ago, abdominal aortic stent, chronic smoker with 50+ pack years presents to the emergency department with chief complaint of right upper quadrant abdominal pain that becomes worse with deep inspiration x 2 days. He states that the pain began as 1 out of 10 but became 10 out of 10 on day of admission. Pain was sharp and stabbing without radiation. Reports shortness of breath but denies recent illness, fever, chills, nausea, vomiting, headaches , change in vision, chest pain, palpitations, cough, unusual bleeding, pedal edema, numbness, tingling, dizziness, lightheadedness, presyncope, or syncope. Denies recent travel or prolonged periods of immobility. The patient was started on aspirin 325 mg by mouth daily, heparin drip, and Prilosec. Today he continues to have right lateral sided pain but denies right upper quadrant pain. Pain is worse with coughing and breathing. He has no difficult voiding and +BM. Able to ambulate without difficulty. Able to take PO intake. - Constitutional Vitals: Temp Pulse Resp BP Pulse Ox 98.3 F 86 17 130/68 92 10/06/17 11:46 10/06/17 11:46 10/06/17 11:46 10/06/17 11:46 10/06/17 11:46 General appearance: Present: cooperative, mild distress (Pain w/inspiration), A& O X 3, pleasant, answers questions appropriately - Head Head exam: Present: atraumatic, normocephalic - Eye Eye exam: Present: normal appearance - ENT ENT exam: Present: mucous membranes moist - Neck Neck exam general surgery: Present: normal inspection, supple, trachea midline - Respiratory Respiratory exam: Present: CTAB. Absent: rales, rhonchi, wheezes - Cardiovascular Cardiovascular exam: Present: RRR, +S1, +S2 Additional comments: No carotid bruits. Right lateral subaxillary tenderness, diffuse. - GI/Abdominal GI/Abdominal exam: Present: normal bowel sounds, soft, no peritoneal signs. Absent: bruit - Extremities Exam Extremities exam: Present: full ROM, warm. Absent: tenderness, radial pulses palpable and symmetrical (No right radial pulse appreciated. No dorsalis pedis pulses noted. ) - Neurological Exam Neurological exam: Present: altered, CN II-XII intact, motor sensory deficit ( diminished left lower extremity sensation. ), oriented X3, reflexes normal, strengths equal and symetr throughout. Absent: facial droop, speech deficit - Skin Skin exam: Present: intact, normal color, warm Internal Medicine: Result - Labs CBC & Chem 7: 10/06/17 05:09 10/06/17 05:09 Labs: Short CBC 10/06/17 Range/Units 05:09 WBC 14.2 H (4.3-11.1) K/mcL Hgb 12.8 L (12.9-16.9) g/dL Hct 35.6 L (37.5-50.1) % Plt Count 172 (140-400) K/mcL Neutrophils # 10.3 H (1.6-8.9) K/mcL BMP 10/06/17 05:09 Sodium 134 L Potassium 3.6 Chloride 106 Carbon Dioxide 23 BUN 12 Creatinine 0.89 Glucose 113 H Calcium 8.4 L Liver Function 10/06/17 Range/Units 05:09 Total Bilirubin 0.8 (0.3-1.0) mg/dL AST 13 (13-39) Units/L ALT 10 (7-52) Units/L Alkaline Phosphatase 56 (34-104) Units/L Albumin 3.4 L (3.5-5.7) g/dL - ABG Interpretation ABG results: PT/INR, D-dimer PT 13.9 Seconds (9.4-12.1) H 10/06/17 05:09 D-Dimer 16413 ng/mLFEU (0-500) H 10/05/17 08:00 - Impressions Impressions Echocardiogram 10/06/17 08:08 Impressions: LVEF 55-60%. Mild left ventricular diastolic dysfunction. Normal right ventricular size and function. No significant valvular dysfunction. No pulmonary hypertension. Left Ventricular Wall Motion: Rest Echo Findings All wall segments showed normal motion. Findings: Study Quality * Technically challenging study - not all images are well visualized. ECG Findings * Normal sinus rhythm. Left Ventricle * Normal appearing LV size. * LV wall thickness measurements are not well obtained. * Mild left ventricular diastolic dysfunction. * LVEF 55-60%. Right Ventricle * Normal right ventricular structure and function. Left Atrium * Normal left atrial size. Right Atrium * Normal right atrial size. Aortic Valve * No aortic regurgitation. * Aortic valve not well visualized. * No aortic stenosis. Mitral Valve * No mitral stenosis. * Trace mitral regurgitation. * Normal mitral valve structure. Tricuspid Valve * Tricuspid valve not well visualized. * Trace tricuspid regurgitation. * Estimated RA pressure is 3 mmHg. * Estimated RVSP is 13 mmHg. * No pulmonary hypertension. Pulmonic Valve * Pulmonic valve is not well visualized. * No pulmonic stenosis. * No pulmonic regurgitation. Pulmonary Artery * Pulmonary artery not well visualized. Aorta * Not well visualized. Pericardium * There is no pericardial effusion present. Interatrial Septum * Interatrial septum not well evaluated. IVC * Normal IVC dimensions and inspiratory collapse. Consult Discharge Plan - Plan Additional Instructions: The patient will need further vascular testing including a CT abdominal aortogram with runoff. I anticipate the patient will require further intervention including repair of the right femoral pseudoaneurysm as well as possible right femoral popliteal bypass grafting and possible endovascular intervention. The patient will also need follow-up CT scans of the abdomen to evaluate his aneurysms. Referrals: Kelvin Bhatia DO [Family Provider] - [facility] [Primary Care Provider] -
[2017-10-06] MEDS ORDERED: Heparin 25,000 UNIT/500 ML D5W 25,000 UNIT/500 ML BAG IVC SCH (15:56)
[2017-10-06] MEDS: *HR* Enoxaparin 80 MG/0.8 ML SYRINGE SQ SCH ×2 (18:14→21:18)
[2017-10-06] MEDS: Metoprolol XL (24 HR) Succ 25 MG TAB.ER.24H PO SCH (20:19)
--- NOTE | 2017-10-06 21:34 | Event Note ---
Date of Encounter: 10/06/17 Time of Encounter: 21:00 Report by RN pt has developped hematuria. Pt has PE for which he is on lovenox 1mg/kg q12 hr. Will hold lovenox and ASA for now. Scan bladder to r/o urinary retention. Further management defer to dayshift.
[2017-10-06 21:50] LABS: Hematocrit 31.2 % (37.5-50.1); Mean Corpuscular HGB Conc 34.6 g/dL (31.6-35.5); Mean Corpuscular Volume 95.4 fL (83.0-100.0); Mean Platelet Volume 10.1 fL (9.4-12.4); Platelet Count 156 K/mcL (140-400); Red Blood Count 3.27 M/mcL (4.19-5.50); Red Cell Distribution Width 13.1 % (11.5-14.5)
[2017-10-06 21:52] LABS: Hemoglobin 10.8 g/dL (12.9-16.9)
[2017-10-07 00:57] LABS: Basophils % 0.3 %; Eosinophils # 0.2 K/mcL (0.0-0.6); Eosinophils % 1.8 %; Hematocrit 31.9 % (37.5-50.1); Immature Granulocytes % 0.5 % (0-4); Lymphocytes # 2.3 K/mcL (0.6-4.6); Lymphocytes % 19.9 %; Mean Corpuscular HGB Conc 34.5 g/dL (31.6-35.5); Mean Corpuscular Hemoglobin 33.1 pg (28.0-33.3); Mean Corpuscular Volume 96.1 fL (83.0-100.0); Mean Platelet Volume 10.3 fL (9.4-12.4); Monocytes # 1.3 K/mcL (0.0-1.3); Monocytes % 11.7 %; Neutrophils # 7.5 K/mcL (1.6-8.9); Platelet Count 164 K/mcL (140-400); Red Blood Count 3.32 M/mcL (4.19-5.50); Red Cell Distribution Width 13.2 % (11.5-14.5); Segmented Neutrophils % 65.8 %
[2017-10-07 05:47] LABS: Alanine Aminotransferase 12 Units/L (7-52); Albumin 3.1 g/dL (3.5-5.7); Alkaline Phosphatase 52 Units/L (34-104); Aspartate Amino Transferase 19 Units/L (13-39); BUN/Creatinine Ratio 14 (6-26); Bilirubin,Total 0.6 mg/dL (0.3-1.0); Blood Urea Nitrogen 15 mg/dL (8-23); Calcium 8.4 mg/dL (8.6-10.3); Carbon Dioxide 24 mEq/L (23-29); Chloride 106 mEq/L (98-107); Globulin 3.2 g/dL (2.4-3.5); Glucose 96 mg/dL (70-105); Osmolality,Calculated 283 (280-300); Potassium 3.3 mEq/L (3.5-5.1); Sodium 136 mEq/L (136-145); Total Protein 6.3 g/dL (6.4-8.9); eGFR For African Americans > 60 (> 60); eGFR For Non-African Americans > 60 (> 60)
--- NOTE | 2017-10-07 10:22 | Internal Med Progress Note ---
<Bob Soto R - Last Filed: 10/07/17 14:50> Date of Encounter: 10/07/17 - Constitutional Vitals: Temp Pulse Resp BP Pulse Ox 98.0 F 89 18 126/70 95 10/07/17 11:30 10/07/17 11:30 10/07/17 11:30 10/07/17 11:30 10/07/17 11:30 Internal Medicine: Result - Labs CBC & Chem 7: 10/07/17 12:39 10/07/17 00:34 Labs: Short CBC 10/06/17 10/07/17 10/07/17 Range/Units 21:39 00:34 12:39 WBC 12.4 H 11.4 H (4.3-11.1) K/mcL Hgb 10.8 L D 11.0 L 12.1 L (12.9-16.9) g/dL Hct 31.2 L 31.9 L 35.2 L (37.5-50.1) % Plt Count 156 164 (140-400) K/mcL Neutrophils # 7.5 (1.6-8.9) K/mcL BMP 10/07/17 00:34 Sodium 136 Potassium 3.3 L Chloride 106 Carbon Dioxide 24 BUN 15 Creatinine 1.07 Glucose 96 Calcium 8.4 L Liver Function 10/07/17 Range/Units 00:34 Total Bilirubin 0.6 (0.3-1.0) mg/dL AST 19 (13-39) Units/L ALT 12 (7-52) Units/L Alkaline Phosphatase 52 (34-104) Units/L Albumin 3.1 L (3.5-5.7) g/dL - ABG Interpretation ABG results: PT/INR, D-dimer PT 13.9 Seconds (9.4-12.1) H 10/06/17 05:09 D-Dimer 19007 ng/mLFEU (0-500) H 10/05/17 08:00 Consult Discharge Plan - Plan Additional Instructions: The patient will need further vascular testing including a CT abdominal aortogram with runoff. I anticipate the patient will require further intervention including repair of the right femoral pseudoaneurysm as well as possible right femoral popliteal bypass grafting and possible endovascular intervention. The patient will also need follow-up CT scans of the abdomen to evaluate his aneurysms. Referrals: Kelvin Bhatia DO [Family Provider] - [place],PCP [Primary Care Provider] - - Attending Attestation I perosnally interviewed and examined this pt and I reviewed all labs ans studies. I agree with the findings, assessment and plan of Dr. Murphy, IM Resident. Unfortunately patient developed hematuria on anticoagulation. He did drop his hemoglobin slightly. We did consult vascular surgery for consideration of inferior vena caval filter. We also did consult urology for looking for possible bladder tumor. Further direction anticoagulation pending this. Her goal situation. Patient states his chest pain is better. He did have some mild hemoptysis which is likely due to his pulmonary embolism and pulmonary infarct. He otherwise remains hemodynamically stable. <Zaid Murphy - Last Filed: 10/07/17 15:22> Date of Encounter: 10/07/17 Time of Encounter: 10:21 - Assessment and plan (1) Pulmonary embolism on right Current Visit: Yes Status: Acute Assessment and plan: As demonstrated by CTA on initial presentation He did have some hemoptysis, and coupled with his hematuria, anticoagulation has been held Vascular surgery already on board, will plan on possible IVC filter placement later today He remains hemodynamically stable and echocardiogram yesterday did not show any RV strain Doppler ordered to observe for any DVTs (2) Gross hematuria Current Visit: Yes Status: Acute Assessment and plan: Patient developed multiple episodes after starting on therapeutic Heparin and Lovenox Anticoagulation has been discontinued given slight drop in Hb Urology consulted, appreciate recommendations (3) Tobacco abuse counseling Current Visit: No Status: Acute Assessment and plan: The patient is educated on importance of tobacco cessation. Follow-up outpatient. 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 He states his breathing has improved much since yesterday and he has no more pain in his right side. Has no issues with nausea, vomiting, but has no bowel movement yet although he is passing gas. - Constitutional Vitals: Temp Pulse Resp BP Pulse Ox 98.0 F 76 17 125/74 95 10/07/17 07:45 10/07/17 07:45 10/07/17 07:45 10/07/17 07:45 10/07/17 07:45 General appearance: Present: cooperative, A&O X 3, pleasant, no acute distress, answers questions appropriately. Absent: mild distress - Head Head exam: Present: atraumatic, normocephalic - Eye Eye exam: Present: PERRL, conjuntiva pink, sclera anicteric - Neck Neck exam general surgery: Present: supple, trachea midline. Absent: lymphadenopathy - Respiratory Respiratory exam: Present: decreased breath sounds (in RLL). Absent: accessory muscle use, rales, rhonchi, wheezes - Cardiovascular Cardiovascular exam: Present: RRR, +S1, +S2. Absent: diastolic murmur, gallop, rubs, systolic murmur - GI/Abdominal GI/Abdominal exam: Present: normal bowel sounds, soft, no peritoneal signs. Absent: distended, tenderness - Extremities Exam Extremities exam: Present: warm, radial pulses palpable and symmetrical. Absent : calf tenderness, cyanotic, pedal edema - Neurological Exam Neurological exam: Present: alert, no focal deficits. Absent: facial droop, speech deficit - Skin Skin exam: Present: dry, intact Internal Medicine: Result - Labs CBC & Chem 7: 10/07/17 12:39 10/07/17 00:34 Labs: Short CBC 10/06/17 10/07/17 Range/Units 21:39 00:34 WBC 12.4 H 11.4 H (4.3-11.1) K/mcL Hgb 10.8 L D 11.0 L (12.9-16.9) g/dL Hct 31.2 L 31.9 L (37.5-50.1) % Plt Count 156 164 (140-400) K/mcL Neutrophils # 7.5 (1.6-8.9) K/mcL BMP 10/07/17 00:34 Sodium 136 Potassium 3.3 L Chloride 106 Carbon Dioxide 24 BUN 15 Creatinine 1.07 Glucose 96 Calcium 8.4 L Liver Function 10/07/17 Range/Units 00:34 Total Bilirubin 0.6 (0.3-1.0) mg/dL AST 19 (13-39) Units/L ALT 12 (7-52) Units/L Alkaline Phosphatase 52 (34-104) Units/L Albumin 3.1 L (3.5-5.7) g/dL - ABG Interpretation ABG results: PT/INR, D-dimer PT 13.9 Seconds (9.4-12.1) H 10/06/17 05:09 D-Dimer 29862 ng/mLFEU (0-500) H 10/05/17 08:00 - Impressions Impressions Echocardiogram 10/06/17 08:08 Impressions: LVEF 55-60%. Mild left ventricular diastolic dysfunction. Normal right ventricular size and function. No significant valvular dysfunction. No pulmonary hypertension. Left Ventricular Wall Motion: Rest Echo Findings All wall segments showed normal motion. Findings: Study Quality * Technically challenging study - not all images are well visualized. ECG Findings * Normal sinus rhythm. Left Ventricle * Normal appearing LV size. * LV wall thickness measurements are not well obtained. * Mild left ventricular diastolic dysfunction. * LVEF 55-60%. Right Ventricle * Normal right ventricular structure and function. Left Atrium * Normal left atrial size. Right Atrium * Normal right atrial size. Aortic Valve * No aortic regurgitation. * Aortic valve not well visualized. * No aortic stenosis. Mitral Valve * No mitral stenosis. * Trace mitral regurgitation. * Normal mitral valve structure. Tricuspid Valve * Tricuspid valve not well visualized. * Trace tricuspid regurgitation. * Estimated RA pressure is 3 mmHg. * Estimated RVSP is 13 mmHg. * No pulmonary hypertension. Pulmonic Valve * Pulmonic valve is not well visualized. * No pulmonic stenosis. * No pulmonic regurgitation. Pulmonary Artery * Pulmonary artery not well visualized. Aorta * Not well visualized. Pericardium * There is no pericardial effusion present. Interatrial Septum * Interatrial septum not well evaluated. IVC * Normal IVC dimensions and inspiratory collapse.
[2017-10-07] MEDS: 0.9 % Sodium Chloride 1,000 ML IVC SCH ×2 (12:22→23:25)
[2017-10-07 13:03] LABS: Hematocrit 35.2 % (37.5-50.1); Hemoglobin 12.1 g/dL (12.9-16.9)
[2017-10-07] MEDS ORDERED: Heparin 1,000 UNITS/500 mL 500 ML ONE (16:40)
[2017-10-07] MEDS ORDERED: *HR* Midazolam HCl 2 MG/2 ML VIAL ONE (16:49)
[2017-10-07] MEDS ORDERED: *HR* FentaNYL (PF) 100 MCG/2 ML VIAL ONE (16:49)
--- NOTE | 2017-10-07 16:51 | Pre-Sedation Evaluation ---
Pre-sedation evaluation - Pre-sedation checklist Date of procedure: 10/07/17 Procedure: CL IVC Filter Recent Vitals: Last Vital Signs Temp 98.4 F 10/07/17 15:58 Pulse 84 10/07/17 15:58 Resp 18 10/07/17 15:58 BP 133/73 10/07/17 15:58 Pulse Ox 94 10/07/17 15:58 H&P (including ROS) documented in medical record: Yes Previous reaction to sedatives/anesthetics: No Dietary Status: NPO 6 hours prior to procedure Dentition: dentures removed ASA Classification *see protocol: CLASS III-Severe systemic disease Plan of Care: Pt appropriate candidate for procedure/moderate/conscious sedation , Risks/benefits of procedure/sedation discussed w/ patient/family
--- NOTE | 2017-10-07 17:34 | Procedure Note ---
Date of procedure: 10/07/17 Pre-op diagnosis: Pulmonary embolism with gross hematuria Post-op diagnosis: same Procedure: Inferior venacavogram Insertion of Celect IVC filter Anesthesia: MAC Surgeon: Jae Foster Was there an sales assistant displays present: No Estimated blood loss (cc): 0 Specimen: 0 Condition: stable Disposition: floor
--- NOTE | 2017-10-07 17:54 | Invasive Diagnostic Lab Proc ---
Name: Isaac Sena Date of Study: 10/07/2017 Date: 1945 Ht: 185.0 in Medical Record#: [id number] Age: 72 Wt: 90 lb Gender: Male BSA: 2.14 Order #: [id number] BMI: 26.3 Physicians Performing MD: Jae Foster MD, FACS Referring MD: Referring MD: Staff Name Position Time In Roshni Riggs RT (R) Monitor Roshni Riggs RT (R) Scrub Cherrie Edwards RN Worm Farmer Indications Pulmonary Embolism Procedures Performed IVC FILTER PLACEMENT Pre-Procedure Checklist Informed consent is complete signed and on chart. H&P is on chart. ID band is on and ID verified with patient. Patient NPO for procedure The procedure was described for the patient and questions were answered. ECG is on chart. Plan of Care Patient will tolerate the procedure without complications. Adequate level of comfort will be maintained. Hemodynamics will remain stable Patient will recover from procedure without complications. Respiratory function will be maintained. Cardiac rhythm will remain stable. Patient temperature will be maintained. Patient and/or family have verbalized understanding of the procedure. Patient Education Chief Complaint/Reason for Test: IVC filter Developmental Category: Geriatric (65+ years) Learning Barriers: None Education Needs: Procedure Education Method: Verbal Information Taught: IVC filter Educational Evaluation: Able to repeat information Intravenous Access Time IV Size Location DC'd Fluid/Drip Rate Units RN 20g 1 09/17" Patent On Arrival mg/hr Allergies No Known Allergies Vital Signs Time BP Systolic BP Diastolic HR O2 Sats ASA 05:03 PM 05:03 PM 04:55 PM 148 88 92 97 04:59 PM 147 84 97 96 05:04 PM 137 89 94 94 05:09 PM 144 92 94 93 05:14 PM 146 94 96 93 05:20 PM 148 85 92 94 05:24 PM 137 111 93 95 05:30 PM 149 94 95 93 Procedure Medications Time Medication Dose Units Method Route 05:02 PM Versed 1 mg Intravenous 05:02 PM Fentanyl 25 mcg Intravenous 05:07 PM Fentanyl 25 mcg Intravenous 05:18 PM Lidocaine 2% 10 ml Subcutaneous 05:18 PM Lidocaine 2% 10 ml Subcutaneous 05:26 PM Fentanyl 50 mcg Intravenous 05:26 PM Versed 1 mg Intravenous 05:26 PM Lidocaine 2% 10 ml Subcutaneous ASA Classification: CLASS III- Severe systemic disease (i.e. prior AMI, diabetes with vascular complications, morbid obesity) Zach Score Preprocedure Postprocedure Activity 2- Moves 4 extremities sustained head lift Activity 2- Moves 4 extremities sustained head lift Circulation 2- SBP +/= 20 points of pre-anesthetic level Circulation 2- SBP +/= 20 points of pre-anesthetic level Consciousness 2- Awake and alert oriented x 3 Consciousness 2- Awake and alert oriented x 3 O2 Saturation 2- Able to maintain O2 satruation of 92% on room air O2 Saturation 2- Able to maintain O2 satruation of 92% on room air Respiratory 2- Able to deep breathe and cough well Respiratory 2- Able to deep breathe and cough well Total Score 10 Total Score 10 Contrast: Isovue 300- 150ml Contrast Amount: 20 ml Fluoro Dose: 304 mGy Procedure Log Time Note Entered By 05:01 PM Pt arrived to medical lab scientist 1 at 17:01 scoates 05:01 PM Estrellita Dai RT (R) Position: Monitor Time in: 17:01 scoates 05:01 PM Roshni Riggs RT (R) Position: Scrub Time in: 17:01 scoates 05:01 PM Cherrie Edwards RN Position: Worm Farmer Time in: 17:01 scoates 05:01 PM Case delayed: No scoates 05:01 PM Hair removed from procedure site in holding area using clippers. Bilateral groin prepped with Chloraprep by estrellita gregg , safety strap applied then patient was draped. Skin intact. scoates 05:02 PM Physician paged/called 17:02 scoates 05:02 PM Physician arrived 17:02 scoates 05:02 PM Alfonso and herberth completed scoates 05:02 PM Sign in performed according to hospital policy. scoates 05:02 PM Procedure start 17:02 scoates 05:02 PM ASA Class CLASS III- Severe systemic disease (i.e. prior AMI, diabetes with vascular complications, morbid obesity) scoates 05:02 PM 17:02 Versed 1 mg Intravenous Given by Cherrie Edwards RN [email or web address] 05:03 PM 17:02 Fentanyl 25 mcg Intravenous Given by Cherrie Edwards RN [email or web address] 05:03 PM Time: 17:03 Is patient comfortable and pain free?: Yes [email or web address] 05:03 PM Time: 17:03LOC: 4 = Oriented but drowsy [email or web address] 05:07 PM 17:07 Fentanyl 25 mcg Intravenous Given by Cherrie Edwards RN [email or web address] 05:18 PM Time: 17:03LOC: 4 = Oriented but drowsy [email or web address] 05:18 PM Ultrasound, Sonosite, utilized to obtain vascular access [email or web address] 05:14 PM 17:18 10 ml Lidocaine 2% to right groin Subcutaneous Given By Jae Foster MD, FACS [email or web address] 05:18 PM 17:18 10 ml Lidocaine 2% to left groin Subcutaneous Given By Jae Foster MD, FACS [email or web address] 05:19 PM Patient Charges- Cook Celect IVC Filter ,Tray Pack and Pulse Oximetry. [email or web address] 05:19 PM Access obtain and IVC Filter sheath inserted Lt Femoral vein. [email or web address] 05:19 PM Inferiorvenacavagram performed 5 mls contrast. [email or web address] 05:25 PM Inferiorvenacavagram performed 3 mls of contrast. [email or web address] 05:26 PM 17:26 Fentanyl 50 mcg Intravenous Given by Cherrie Edwards RN [email or web address] 05:26 PM 17:26 Versed 1 mg Intravenous Given by Cherrie Edwards RN [email or web address] 05:27 PM 17:26 10 ml Lidocaine 2% to left groin Subcutaneous Given By Jae Foster MD, FACS [email or web address] 05:28 PM IVC Filter deployed into the inferior vena cava [email or web address] 05:28 PM Inferiorvenacavagram performed 5 mls of contrast. [email or web address] 05:30 PM Procedure completed at 17:30 [email or web address] 05:30 PM Sign Out completed: Radiation Dose 303.95 mGy Fluoro Time: 1.7 minutes. Isovue 300- 150ml contrast 20 ml given by Jae Foster MD, FACS. Complications: None. Confirmed administered medications:Yes [email or web address] 05:31 PM Arterial sheath pulled using manual compression and V+Pad for 10 minutes by Roshni Riggs RT (R) [email or web address] 05:32 PM Estimated Blood Loss: minimal [email or web address] 05:33 PM Post Blood Pressure: 149/94 [email or web address] 05:33 PM Post EKG: NSR [email or web address] 05:33 PM Information taught: IVC filter [email or web address] 05:33 PM Education needs: Procedure, Disease Process, and Discharge Instructions [email or web address] 05:33 PM Learning barriers: None [email or web address] 05:33 PM Education methods: Verbal [email or web address] 05:33 PM Education evaluation: Able to repeat information 3 05:33 PM Patient pain level 0/10 [email or web address] 05:33 PM Delay to floor: No 3 05:33 PM Pt taken to 3B Room# 13 [email or web address] 05:34 PM Family placed in not available. [email or web address] 05:34 PM Complications: None [email or web address] 05:34 PM Fluoro Time: 1.7 minutes [email or web address] 05:34 PM Isovue 300- 150ml contrast 20 ml given by Jae Foster MD, FACS [email or web address] 05:34 PM Radiation Dose 303.95 mGy [email or web address] 05:20 PM HR=92 bpm, NVCZ=564/85 mmhg, SpO2=94.0 %, Resp=20 B/min, Comment=NSR 05:24 PM HR=93 bpm, IATB=313/111 mmhg, SpO2=95.0 %, Resp=16 B/min, Comment=NSR 05:30 PM HR=95 bpm, MPYA=412/94 mmhg, SpO2=93.0 %, Resp=21 B/min, Comment=NSR 04:47 PM PVIStat 04:54 PM Vitals capture started with the following parameters, Patient=Adult, Interval=5 min, Initial Jozppetj=725 mmHg, Deflation Rate=5 mmHg, Cuff placed on Left Arm 04:55 PM HR=92 bpm, UWOS=045/88 mmhg, SpO2=97.0 %, Resp=15 B/min 04:59 PM HR=97 bpm, EPPL=209/84 mmhg, SpO2=96.0 %, Resp=19 B/min 05:00 PM Recorded ECG: HR=97 Condition=Condition 1 05:04 PM HR=94 bpm, DTPC=472/89 mmhg, SpO2=94.0 %, Resp=21 B/min, Comment=NSR 05:09 PM HR=94 bpm, MPDE=781/92 mmhg, SpO2=93.0 %, Resp=29 B/min, Comment=NSR 05:14 PM HR=96 bpm, ULNY=968/94 mmhg, SpO2=93.0 %, Resp=26 B/min, Comment=NSR 05:19 PM Recorded ECG: HR=96 Condition=Condition 1 05:43 PM Site status No bleeding/hematoma - Lt Groin as reported by Cherrie Edwards RN at 17:43 [email or web address] 05:43 PM Opsite applied [email or web address] 05:47 PM Report given to Christie DE LA CRUZ. Pt taken to , Room # 13 17:46 [email or web address] 05:47 PM Patient out of room 17:47 [email or web address] 05:48 PM Site status No bleeding/hematoma - as reported by at 17:48 [email or web address] Post Procedure Information Blood Pressure: 149/94 mmHg Rhythm: NSR Post procedure instructions given Report Given To: [place] Site Checks Time Location Status Staff Sheath In? Note 5:48:00 PM Lt Groin No bleeding/ No Hematoma Cherrie Edwards RN Pulses Time Site Pre Procedure Post Procedure Note Bilateral DP & PT 1+ 1+ Bilateral radial 2+ Updated by Estrellita Dai, RT(R) on 10/07/2017 5:49:16 PM electronically signed on 10/07/2017 5:49:40 PM with status of Final
--- NOTE | 2017-10-07 18:03 | Electrocardiograph Report ---
[employer] Test Date: 2017-10-05 Pat Name: Isaac Sena Department: 104 Room: 3B13 Gender: M Blocker And Polisher: SAURAV : 1945 Requested By: Jeremie Dhillon Order Number: [id number] Reading MD: Helder aMjor MD Measurements Intervals [place] Rate: 96 P: 42 W[place]: 143 QRS: 13 QRSD: 96 T: 65 QT: 348 QTc: 401 Interpretive Statements SINUS RHYTHM INCOMPLETE RIGHT BUNDLE BRANCH BLOCK [90+ ms QRS DURATION, TERMINAL R IN V1/V2, 40+ ms S IN I/aVL/V4/V5/V6] WARNING: DATA QUALITY MAY AFFECT INTERPRETATION Electronically Signed On 10-07-2017 18:02:18 EST by Helder Major MD
[2017-10-07] MEDS: *HR* Morphine 2 MG/ML SYRINGE IVP PRN (18:17)
[2017-10-07] MEDS: Metoprolol XL (24 HR) Succ 25 MG TAB.ER.24H PO SCH (20:04)
[2017-10-07] MEDS: *HR* HYDROcodone/Acet 5/325 mg TABLET PO PRN (20:04)
[2017-10-08 05:09] LABS: Basophils % 0.3 %; Eosinophils # 0.2 K/mcL (0.0-0.6); Eosinophils % 2.8 %; Hematocrit 31.7 % (37.5-50.1); Hemoglobin 10.8 g/dL (12.9-16.9); Immature Granulocytes % 0.4 % (0-4); Lymphocytes # 1.1 K/mcL (0.6-4.6); Lymphocytes % 14.5 %; Mean Corpuscular HGB Conc 34.1 g/dL (31.6-35.5); Mean Corpuscular Hemoglobin 32.8 pg (28.0-33.3); Mean Corpuscular Volume 96.4 fL (83.0-100.0); Mean Platelet Volume 11.6 fL (9.4-12.4); Monocytes % 12.7 %; Neutrophils # 5.5 K/mcL (1.6-8.9); Platelet Count 143 K/mcL (140-400); Red Blood Count 3.29 M/mcL (4.19-5.50); Segmented Neutrophils % 69.3 %
[2017-10-08 05:51] LABS: Alanine Aminotransferase 17 Units/L (7-52); Albumin/Globulin Ratio 1.2 (1.1-2.2); Alkaline Phosphatase 54 Units/L (34-104); Aspartate Amino Transferase 22 Units/L (13-39); BUN/Creatinine Ratio 18 (6-26); Bilirubin,Total 0.8 mg/dL (0.3-1.0); Blood Urea Nitrogen 15 mg/dL (8-23); Calcium 8.1 mg/dL (8.6-10.3); Carbon Dioxide 21 mEq/L (23-29); Chloride 108 mEq/L (98-107); Globulin 2.6 g/dL (2.4-3.5); Glucose 87 mg/dL (70-105); Osmolality,Calculated 282 (280-300); Potassium 3.2 mEq/L (3.5-5.1); Sodium 136 mEq/L (136-145); Total Protein 5.6 g/dL (6.4-8.9); eGFR For African Americans > 60 (> 60); eGFR For Non-African Americans > 60 (> 60)
--- NOTE | 2017-10-08 07:38 | Urology - Consult Note ---
Date of Encounter: 10/08/17 Time of Encounter: 07:35 - Assessment and Plan (1) Hematuria Current Visit: Yes Status: Acute Assessment and plan: 72-year-old man with gross hematuria after starting anticoagulants for a pulmonary embolus. He is urinating well. His urine is a light pink color. Anticoagulants have been held. I think it would be reasonable to monitor his urine color for another day or so. I suspect the urine will clear off the anticoagulants. We can then cautiously resume them once his urine has turned clear. At this point I do not recommend placing a catheter as I think there is low risk for blood clot. He is also not in retention. I will continue to follow the serial urines. Qualifiers: Qualified Code(s): R31.0 - Gross hematuria Urology [id number] Consult date: 10/08/17 Reason for consult Urology: Gross Hematuria Requesting physician: Zaid Murphy History of present illness: 72-year-old man presented with shortness of breath. In workup he had a pulmonary embolus and was started on anticoagulants. He developed gross hematuria. The anticoagulants were stopped and he underwent placement of an inferior vena cava filter yesterday. He has been able to void well. His urine has been a light pink color. There have been no clots. He feels that he is doing well. He denies any prior history of hematuria. He denies any problems urinating. He denies any prostate surgery. Past Med Surg Social Fam HX - Past Medical History Medical history: coronary artery disease Psychiatric history: no psych history - Past Surgical History Surgical History: angioplasty/stent (x1), coronary bypass (CABG), vascular surgery (Aortobifemoral bypass graft) - Social History Smoking Status: Current every day smoker Packs per day: 1 PPD Smokeless Tobacco Status: No Alcohol use: none Drug use: none - Family History Father Race: Family Member Ethnicity: Non- Living Status: Age at : 62 Cause of : Leukemia Hx Family Cancer: Yes (Leukemia) Mother Race: Family Member Ethnicity: Non- Living Status: Age at : 93 Cause of : Old age Brother Race: Family Member Ethnicity: Non- Living Status: Age at : 71 Cause of : Prostate cancer Hx Family Cancer: Yes (Prostate) Sister Race: Family Member Ethnicity: Non- Living Status: Still Living Hx Family Medical Disorders: No Medications and Allergies Aspirin Enteric Coated [Aspirin EC] 325 mg PO DAILY 10/05/17 [History] Lisinopril [Zestril] 5 mg PO HS 10/05/17 [History] Metoprolol XL (24 HR) Succ [Toprol XL] 25 mg PO HS 10/05/17 [History] Omeprazole [PriLOSEC] 20 mg PO DAILY 10/05/17 [History] Simvastatin [Zocor] 40 mg PO QPM 10/05/17 [History] 3 Allergy/AdvReac Type Severity Reaction Status Date / Time No Known Allergies Allergy Verified 10/05/17 07:50 Review of Systems - Constitutional no chills, no fever(s) - EENT Nose, mouth and throat: no dizziness - Cardiovascular no chest pain - Respiratory no dyspnea - Gastrointestinal no nausea, no vomiting - Genitourinary no flank pain, no hematuria - Musculoskeletal no back pain - Integumentary no erythema, no rash - Neurological no weakness - Psychiatric no suicidal ideation - Hematologic/Lymphatic no easy bleeding - Allergic/Immunologic no wheezing Exam Initial Vital Signs Temp Pulse Resp BP Pulse Ox 98.1 F 100 22 155/107 95 10/05/17 07:32 10/05/17 07:32 10/05/17 07:32 10/05/17 07:32 10/05/17 07:32 - General physical appearance Present: well developed, well nourished, no distress - Eyes Absent: icteric - ENT Present: normal nares - Neck Present: trachea midline - Respiratory Present: normal respiratory effort - Cardiovascular Cardiovascular exam IM: RRR - Abdomen Abdomen: Present: soft Urology Results - Labs 10/08/17 03:32 10/08/17 03:32 Abnormal lab results RBC 3.29 M/mcL (4.19-5.50) L 10/08/17 03:32 Hgb 10.8 g/dL (12.9-16.9) L 10/08/17 03:32 Hct 31.7 % (37.5-50.1) L 10/08/17 03:32 PT 13.9 Seconds (9.4-12.1) H 10/06/17 05:09 APTT 38.9 Seconds (26.0-36.0) H 10/06/17 21:39 D-Dimer 92562 ng/mLFEU (0-500) H 10/05/17 08:00 Potassium 3.2 mEq/L (3.5-5.1) L 10/08/17 03:32 Chloride 108 mEq/L (98-107) H 10/08/17 03:32 Carbon Dioxide 21 mEq/L (23-29) L 10/08/17 03:32 Calcium 8.1 mg/dL (8.6-10.3) L 10/08/17 03:32 Direct Bilirubin 0.4 mg/dL (0.0-0.2) H 10/05/17 08:00 Serum Total Protein 5.6 g/dL (6.4-8.9) L 10/08/17 03:32 Albumin 3.0 g/dL (3.5-5.7) L 10/08/17 03:32 HDL Cholesterol 29 mg/dL (40-59) L 10/06/17 05:09 Lipase 4 Units/L (11-82) L 10/05/17 08:00 Urine Protein 30 mg/dL (Neg-Trace) H 10/05/17 08:17 Urine Ketones Trace mg/dL (Negative) H 10/05/17 08:17 Urine Blood Small (Negative) H 10/05/17 08:17 Ur Leukocyte Esterase Trace (Negative) H 10/05/17 08:17 Urine Microscopic RBC 15-30 per hpf (0-3) H 10/05/17 08:17 Ur Squamous Epith Cells Many per lpf (None-Few) H 10/05/17 08:17 Diabetes panel 10/08/17 Range/Units 03:32 Sodium 136 (136-145) mEq/L Potassium 3.2 L (3.5-5.1) mEq/L Chloride 108 H (98-107) mEq/L Carbon Dioxide 21 L (23-29) mEq/L BUN 15 (8-23) mg/dL Creatinine 0.83 (0.70-1.30) mg/dL Glucose 87 (70-105) mg/dL Calcium 8.1 L (8.6-10.3) mg/dL AST 22 (13-39) Units/L ALT 17 (7-52) Units/L Alkaline Phosphatase 54 (34-104) Units/L Albumin 3.0 L (3.5-5.7) g/dL Calcium panel 10/08/17 Range/Units 03:32 Calcium 8.1 L (8.6-10.3) mg/dL Albumin 3.0 L (3.5-5.7) g/dL Pituitary panel 10/08/17 Range/Units 03:32 Sodium 136 (136-145) mEq/L Potassium 3.2 L (3.5-5.1) mEq/L Chloride 108 H (98-107) mEq/L Carbon Dioxide 21 L (23-29) mEq/L BUN 15 (8-23) mg/dL Creatinine 0.83 (0.70-1.30) mg/dL Glucose 87 (70-105) mg/dL Calcium 8.1 L (8.6-10.3) mg/dL Adrenal panel 10/08/17 Range/Units 03:32 Sodium 136 (136-145) mEq/L Potassium 3.2 L (3.5-5.1) mEq/L Chloride 108 H (98-107) mEq/L Carbon Dioxide 21 L (23-29) mEq/L BUN 15 (8-23) mg/dL Creatinine 0.83 (0.70-1.30) mg/dL Glucose 87 (70-105) mg/dL Calcium 8.1 L (8.6-10.3) mg/dL Total Bilirubin 0.8 (0.3-1.0) mg/dL AST 22 (13-39) Units/L ALT 17 (7-52) Units/L Alkaline Phosphatase 54 (34-104) Units/L Albumin 3.0 L (3.5-5.7) g/dL All other labs normal. Consult Discharge Plan - Plan Additional Instructions: The patient will need further vascular testing including a CT abdominal aortogram with runoff. I anticipate the patient will require further intervention including repair of the right femoral pseudoaneurysm as well as possible right femoral popliteal bypass grafting and possible endovascular intervention. The patient will also need follow-up CT scans of the abdomen to evaluate his aneurysms. Referrals: Kelvin Bhatia DO [Family Provider] - [facility] [Primary Care Provider[facility] -
--- NOTE | 2017-10-08 09:33 | Internal Med Progress Note ---
<Zaid Murphy - Last Filed: 10/08/17 10:40> Date of Encounter: 10/08/17 Time of Encounter: 09:32 - Assessment and plan (1) Pulmonary embolism on right Current Visit: Yes Status: Acute Assessment and plan: As demonstrated by CTA on initial presentation He did have some hemoptysis, and coupled with his hematuria, anticoagulation has been held Vascular surgery consulted placed IVC filter 10/07 He remains hemodynamically stable and echocardiogram did not show any RV strain Doppler did not show any DVTs (2) Gross hematuria Current Visit: Yes Status: Acute Assessment and plan: Patient developed multiple episodes after starting on therapeutic Heparin and Lovenox Anticoagulation has been discontinued given slight drop in Hb Urology consulted, stated on holding anticoagulation until urine clears (3) Tobacco abuse counseling Current Visit: No Status: Chronic Assessment and plan: The patient is educated on importance of tobacco cessation. Follow-up outpatient. 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 He states his breathing is great and has no complaints of pain. He did get his IVC filter last night and tolerated the procedure well. Denies any nausea, vomiting, diarrhea, fevers. He still had some pink colored urine today. - Constitutional Vitals: Temp Pulse Resp BP Pulse Ox 98.2 F 75 16 108/61 94 10/08/17 06:00 10/08/17 06:00 10/08/17 06:00 10/08/17 06:00 10/08/17 06:00 General appearance: Present: cooperative, A&O X 3, pleasant, no acute distress, answers questions appropriately. Absent: mild distress - Head Head exam: Present: atraumatic, normocephalic - Eye Eye exam: Present: PERRL, conjuntiva pink, sclera anicteric - Neck Neck exam general surgery: Present: supple, trachea midline. Absent: lymphadenopathy - Respiratory Respiratory exam: Present: CTAB. Absent: accessory muscle use, rales, rhonchi, wheezes - Cardiovascular Cardiovascular exam: Present: RRR, +S1, +S2. Absent: diastolic murmur, gallop, rubs, systolic murmur - GI/Abdominal GI/Abdominal exam: Present: normal bowel sounds, soft, no peritoneal signs. Absent: distended, tenderness - Extremities Exam Extremities exam: Present: warm, radial pulses palpable and symmetrical. Absent : calf tenderness, cyanotic, pedal edema - Neurological Exam Neurological exam: Present: alert, no focal deficits. Absent: facial droop, speech deficit - Skin Skin exam: Present: dry, intact Internal Medicine: Result - Labs CBC & Chem 7: 10/08/17 03:32 10/08/17 03:32 Labs: Short CBC 10/07/17 10/08/17 Range/Units 12:39 03:32 WBC 7.9 (4.3-11.1) K/mcL Hgb 12.1 L 10.8 L (12.9-16.9) g/dL Hct 35.2 L 31.7 L (37.5-50.1) % Plt Count 143 (140-400) K/mcL Neutrophils # 5.5 (1.6-8.9) K/mcL BMP 10/08/17 03:32 Sodium 136 Potassium 3.2 L Chloride 108 H Carbon Dioxide 21 L BUN 15 Creatinine 0.83 Glucose 87 Calcium 8.1 L Liver Function 10/08/17 Range/Units 03:32 Total Bilirubin 0.8 (0.3-1.0) mg/dL AST 22 (13-39) Units/L ALT 17 (7-52) Units/L Alkaline Phosphatase 54 (34-104) Units/L Albumin 3.0 L (3.5-5.7) g/dL - ABG Interpretation ABG results: PT/INR, D-dimer PT 13.9 Seconds (9.4-12.1) H 10/06/17 05:09 D-Dimer [id number] ng/mLFEU (0-500) H 10/05/17 08:00 Consult Discharge Plan - Plan Additional Instructions: The patient will need further vascular testing including a CT abdominal aortogram with runoff. I anticipate the patient will require further intervention including repair of the right femoral pseudoaneurysm as well as possible right femoral popliteal bypass grafting and possible endovascular intervention. The patient will also need follow-up CT scans of the abdomen to evaluate his aneurysms. Referrals: Kelvin Bhatia DO [Family Provider] - [facility] - <Bob Soto - Last Filed: 10/08/17 15:34> Date of Encounter: 10/08/17 - Constitutional Vitals: Temp Pulse Resp BP Pulse Ox 98.2 F 80 16 146/81 95 10/08/17 10:56 10/08/17 10:56 10/08/17 10:56 10/08/17 10:56 10/08/17 10:56 Internal Medicine: Result - Labs CBC & Chem 7: 10/08/17 03:32 10/08/17 03:32 Labs: Short CBC 10/08/17 Range/Units 03:32 WBC 7.9 (4.3-11.1) K/mcL Hgb 10.8 L (12.9-16.9) g/dL Hct 31.7 L (37.5-50.1) % Plt Count 143 (140-400) K/mcL Neutrophils # 5.5 (1.6-8.9) K/mcL BMP 10/08/17 03:32 Sodium 136 Potassium 3.2 L Chloride 108 H Carbon Dioxide 21 L BUN 15 Creatinine 0.83 Glucose 87 Calcium 8.1 L Liver Function 10/08/17 Range/Units 03:32 Total Bilirubin 0.8 (0.3-1.0) mg/dL AST 22 (13-39) Units/L ALT 17 (7-52) Units/L Alkaline Phosphatase 54 (34-104) Units/L Albumin 3.0 L (3.5-5.7) g/dL - ABG Interpretation ABG results: PT/INR, D-dimer PT 13.9 Seconds (9.4-12.1) H 10/06/17 05:09 D-Dimer [id number] ng/mLFEU (0-500) H 10/05/17 08:00 - Attending Attestation I personally interviewed and examined this patient. I agree with the findings, assessment, plan of Dr. Murphy, internal medicine resident. Vascular surgery assistance is appreciated with IVC filter in consultation. Urology input is appreciated as well. We will hold off anticoagulation until hematuria resolves. Patient reports feeling improved. All else is outlined. Mentioned, will likely need lifelong anticoagulation, and possibly further intervention from a vascular standpoint with regards to his lower extremity thrombotic disease.
[2017-10-08] MEDS: 0.9 % Sodium Chloride 1,000 ML IVC SCH (10:21)
[2017-10-08] MEDS: Metoprolol XL (24 HR) Succ 25 MG TAB.ER.24H PO SCH (20:34)
[2017-10-09 05:50] LABS: Basophils % 0.3 %; Eosinophils # 0.2 K/mcL (0.0-0.6); Eosinophils % 2.5 %; Hematocrit 33.5 % (37.5-50.1); Hemoglobin 11.7 g/dL (12.9-16.9); Immature Granulocytes % 0.3 % (0-4); Lymphocytes # 1.1 K/mcL (0.6-4.6); Lymphocytes % 13.1 %; Mean Corpuscular HGB Conc 34.9 g/dL (31.6-35.5); Mean Corpuscular Hemoglobin 32.5 pg (28.0-33.3); Mean Corpuscular Volume 93.1 fL (83.0-100.0); Mean Platelet Volume 10.9 fL (9.4-12.4); Monocytes # 1.1 K/mcL (0.0-1.3); Monocytes % 13.1 %; Neutrophils # 6.1 K/mcL (1.6-8.9); Platelet Count 178 K/mcL (140-400); Red Cell Distribution Width 12.8 % (11.5-14.5); Segmented Neutrophils % 70.7 %
[2017-10-09 05:53] LABS: Alanine Aminotransferase 34 Units/L (7-52); Albumin 3.3 g/dL (3.5-5.7); Albumin/Globulin Ratio 1.2 (1.1-2.2); Alkaline Phosphatase 69 Units/L (34-104); Aspartate Amino Transferase 36 Units/L (13-39); BUN/Creatinine Ratio 13 (6-26); Bilirubin,Total 0.8 mg/dL (0.3-1.0); Blood Urea Nitrogen 11 mg/dL (8-23); Calcium 8.5 mg/dL (8.6-10.3); Carbon Dioxide 21 mEq/L (23-29); Chloride 105 mEq/L (98-107); Globulin 2.8 g/dL (2.4-3.5); Glucose 110 mg/dL (70-105); Osmolality,Calculated 276 (280-300); Potassium 3.5 mEq/L (3.5-5.1); Sodium 133 mEq/L (136-145); Total Protein 6.1 g/dL (6.4-8.9); eGFR For African Americans > 60 (> 60); eGFR For Non-African Americans > 60 (> 60)
--- NOTE | 2017-10-09 07:29 | Urology Progress Note ---
Date of Encounter: 10/09/17 Time of Encounter: 07:28 - Assessment and Plan (1) Hematuria Current Visit: Yes Status: Acute Assessment and plan: Urine is clearing. I would recommend holding any anticoagulants for at least a few more days to minimize risk of rebleed. Okay to discharge home. He can follow -up in the urology clinic for a cystoscopy. Qualifiers: Qualified Code(s): R31.0 - Gross hematuria Progress Note Narrative: He continues to void well. His urine is yellow today. He feels well. Objective Initial Vital Signs Temp Pulse Resp BP Pulse Ox 98.1 F 100 22 155/107 95 10/05/17 07:32 10/05/17 07:32 10/05/17 07:32 10/05/17 07:32 10/05/17 07:32 - General physical appearance Present: well developed, well nourished, no distress - Respiratory Present: normal respiratory effort - Abdomen Present: soft - Genitourinary Urine Appearance: Present: Clear - Labs 10/09/17 04:57 10/09/17 04:57 Diabetes panel 10/09/17 Range/Units 04:57 Sodium 133 L (136-145) mEq/L Potassium 3.5 (3.5-5.1) mEq/L Chloride 105 (98-107) mEq/L Carbon Dioxide 21 L (23-29) mEq/L BUN 11 (8-23) mg/dL Creatinine 0.82 (0.70-1.30) mg/dL Glucose 110 H (70-105) mg/dL Calcium 8.5 L (8.6-10.3) mg/dL AST 36 (13-39) Units/L ALT 34 (7-52) Units/L Alkaline Phosphatase 69 (34-104) Units/L Albumin 3.3 L (3.5-5.7) g/dL Calcium panel 10/09/17 Range/Units 04:57 Calcium 8.5 L (8.6-10.3) mg/dL Albumin 3.3 L (3.5-5.7) g/dL Pituitary panel 10/09/17 Range/Units 04:57 Sodium 133 L (136-145) mEq/L Potassium 3.5 (3.5-5.1) mEq/L Chloride 105 (98-107) mEq/L Carbon Dioxide 21 L (23-29) mEq/L BUN 11 (8-23) mg/dL Creatinine 0.82 (0.70-1.30) mg/dL Glucose 110 H (70-105) mg/dL Calcium 8.5 L (8.6-10.3) mg/dL Adrenal panel 10/09/17 Range/Units 04:57 Sodium 133 L (136-145) mEq/L Potassium 3.5 (3.5-5.1) mEq/L Chloride 105 (98-107) mEq/L Carbon Dioxide 21 L (23-29) mEq/L BUN 11 (8-23) mg/dL Creatinine 0.82 (0.70-1.30) mg/dL Glucose 110 H (70-105) mg/dL Calcium 8.5 L (8.6-10.3) mg/dL Total Bilirubin 0.8 (0.3-1.0) mg/dL AST 36 (13-39) Units/L ALT 34 (7-52) Units/L Alkaline Phosphatase 69 (34-104) Units/L Albumin 3.3 L (3.5-5.7) g/dL Consult Discharge Plan - Plan Additional Instructions: The patient will need further vascular testing including a CT abdominal aortogram with runoff. I anticipate the patient will require further intervention including repair of the right femoral pseudoaneurysm as well as possible right femoral popliteal bypass grafting and possible endovascular intervention. The patient will also need follow-up CT scans of the abdomen to evaluate his aneurysms. Referrals: Kelvin Bhatia DO [Family Provider] - [facility] -
[2017-10-09 10:13] VITALS: BP 131/69
--- NOTE | 2017-10-09 10:19 | Discharge Summary ---
<Zaid Murphy - Last Filed: 10/09/17 15:36> Date of Encounter: 10/09/17 Time of Encounter: 10:17 - Discharge Diagnosis (1) Pulmonary embolism on right Priority: Primary Status: Acute (2) Gross hematuria Priority: Secondary Status: Acute (3) Tobacco abuse counseling Priority: Secondary Status: Chronic (4) Thrombosis of common femoral artery Priority: Secondary Status: Chronic (5) PAD (peripheral artery disease) Priority: Secondary Status: Chronic (6) DVT prophylaxis Priority: Secondary Status: Acute - Discharge Medications Prescriptions: Rivaroxaban [Xarelto] 15 mg PO BID #42 tablet Home Medications: Aspirin Enteric Coated [Aspirin EC] 325 mg PO DAILY 10/05/17 [History] Lisinopril [Zestril] 5 mg PO HS 10/05/17 [History] Metoprolol XL (24 HR) Succ [Toprol XL] 25 mg PO HS 10/05/17 [History] Omeprazole [PriLOSEC] 20 mg PO DAILY 10/05/17 [History] Simvastatin [Zocor] 40 mg PO QPM 10/05/17 [History] Rivaroxaban [Xarelto] 15 mg PO BID #42 tablet 10/09/17 [Rx] Allergies/Adverse Reactions: 3 Allergy/AdvReac Type Severity Reaction Status Date / Time No Known Allergies Allergy Verified 10/05/17 07:50 Procedures/tests Complete & Pending: Procedures Performed prior 72 hours Category Date Time Status CL IVC Filter [CL] Routine Digester Operator 10/07/17 11:09 Completed Venous Doppler [EV venous imaging LE BI] Routine Y 10/07/17 11:08 Completed Date of admission: 10/05/17 16:44 [facility] care physician: [facility] Consults: 10/07/17 10:37 Consult to Urology [CONS] Routine Consulting Provider: Jazmny Coronel Reason for Consult: gross hematuria Time Notified: 10:37 Call Completed: Yes Discharging clinician: Zaid Murphy Anticipated date of discharge: 10/09/17 - Patient Status Disposition: Home, Self-Care Condition: Fair Functional capacity at discharge: independent ambulation Overall status at discharge: patient is progressing back to baseline - Discharge Instructions Follow Up With: Jazmyn Coronel [Provider Group] Kelvin Bhatia DO [Family Provider] - [facility] [Primary Care Provider[facility] - (Appointment with [facility] from 9:15-10:15. Appontment with [facility] [employer] September at 2:00 PM.) Additional Instructions: The patient will need further vascular testing including a CT abdominal aortogram with runoff. I anticipate the patient will require further intervention including repair of the right femoral pseudoaneurysm as well as possible right femoral popliteal bypass grafting and possible endovascular intervention. The patient will also need follow-up CT scans of the abdomen to evaluate his aneurysms. Patient will follow up with your urology and his PCP within 1 week of discharge. - Diet and Activity Activity: increase activity as tolerated Diet: advance to your usual diet Hospital course: Mr. Sena is a 72 year old male w/ PMH of CAD, DVTs and CABG w/ stent x1 presented to the ED complaining of right upper abdominal pain worse w/ inspiration. CTA confirmed right lower lobe pulmonary embolism compatible w/ infarct and small nonocclusive left lower lobe segmental pulmonary embolism w/o evidence of infarct. Echo r/o right heart strain. Patient was started on Heparin drip and ASA and was placed on GI Prophylaxis w/ Prilosec and Zofran. Lovenox was started and Heparin was discontinued. Vascular was consulted b/c the CT scan of the abdomen and pelvis revealed a thrombus of the right common femoral artery. Dr. Foster suggested that no vascular intervention for the artery is necessary until the PE is fully resolved. CT of the abdomen and pelvis also revealed a proximal AAA of 3.2 cm in size and should be followed by the vascular team. Mr. Sena felt relief in his dyspnea however unfortunately developed hematuria after the anti-coagulation was started. The patient also had a cough w/ bloody sputum secondary to infarction and/or anti-coagulants. Given the fact that the patient cannot be anti-coagulated and was a high risk for further clots, Dr. Foster decided to place an IVC filter, which was placed through the left femoral vein. No adverse events reported during or after the procedure. Urology was consulted for the gross hematuria and Dr. Hewitt suggested to hold the anti-coagulants and did not feel any urological intervention was necessary considering there was no urinary retention or suspicions of clots. Urine is yellow on discharge day w/ no gross hematuria. Urology recommends f/u in 2 weeks for possible outpatient cystoscopy. Mr. Sena feels well on discharge day, w/ the only complaint of weakness due to being in a hospital bed for the past 5 days. Patient has an appointment [facility] Oct 22 at 9:15. Patient is also to meet w/ a secondary social studies teacher on Oct 13 at 2pm. Patient will be discharged home w/ 30 days free of Xarelto until he has his [facility] appointment and should be able to get any further refills through the [facility]. The patient was told not to start the Xarelto until ThursdayOct 12 and in absence of any bloody sputum or hematuria. - Time Spent with Patient Total time spent providing and/or coordinating discharge services: - Constitutional Vitals: Temp Pulse Resp BP Pulse Ox 97.9 F 78 16 131/69 96 10/09/17 10:13 10/09/17 10:13 10/09/17 10:13 10/09/17 10:13 10/09/17 10:13 General appearance: Present: cooperative, A&O X 3, pleasant, no acute distress, answers questions appropriately. Absent: mild distress - Head Head exam: Present: atraumatic, normocephalic - Eye Eye exam: Present: PERRL, conjuntiva pink, sclera anicteric - Neck Neck exam general surgery: Present: supple, trachea midline. Absent: lymphadenopathy - Respiratory Respiratory exam: Present: CTAB. Absent: accessory muscle use, rales, rhonchi, wheezes - Cardiovascular Cardiovascular exam: Present: RRR, +S1, +S2. Absent: diastolic murmur, gallop, rubs, systolic murmur - GI/Abdominal GI/Abdominal exam: Present: normal bowel sounds, soft, no peritoneal signs. Absent: distended, tenderness - Extremities Exam Extremities exam: Present: warm, radial pulses palpable and symmetrical. Absent : calf tenderness, cyanotic, pedal edema - Neurological Exam Neurological exam: Present: alert, no focal deficits. Absent: facial droop, speech deficit - Skin Skin exam: Present: dry, intact <Bob Soto - Last Filed: 10/09/17 17:47> Date of Encounter: 10/09/17 Procedures/tests Complete & Pending: Procedures Performed prior 72 hours Category Date Time Status CL IVC Filter [CL] Routine Digester Operator 10/07/17 11:09 Completed Venous Doppler [EV venous imaging LE BI] Routine Y 10/07/17 11:08 Completed Date of admission: 10/05/17 16:44 Primary care physician: [facility]CP [facility] Consults: 10/07/17 10:37 Consult to Urology [CONS] Routine Consulting Provider: Jazmyn Coronel Reason for Consult: gross hematuria Time Notified: 10:37 Call Completed: Yes Hospital course: Mr. Sena is a 72 year old male - Time Spent with Patient Total time spent providing and/or coordinating discharge services: - Constitutional Vitals: Temp Pulse Resp BP Pulse Ox 97.9 F 78 16 131/69 96 10/09/17 10:13 10/09/17 10:13 10/09/17 10:13 10/09/17 10:13 10/09/17 10:13 - Attending Attestation I personally interviewed and examined this patient. I agree with the findings, assessment, and plan of Dr. Murphy, internal medicine resident. Patient has improved. Hematuria is resolving. Hemoptysis is resolving. This is a difficult scenario given his recently diagnosed pulmonary embolism. He does have a filter in place although he will need systemic anticoagulation as soon as possible, lifelong most likely. He will resume anticoagulation in 3 days, if no further bleeding noted. He will need close follow-up. All else as per discharge summary. A total of 41 minutes was spent on discharge and coordination of care.
== END 2017-10-09 14:05 | disposition home or self-care (01) | DRG 167 ==
LOC: EMEROO 07:29 → 2SOUTHHOLD 07:29 → 3BNU 10-06 18:03
PROVIDERS: ADMIT Hospitalist; ATTEND Hospitalist

== ENCOUNTER 2018-01-26 06:19 | Inpatient (IN) ==
[~2018-01-26 06:19] MED LIST: ceFAZolin 1,000 MG, Sodium Chloride IRRigation 1,000 ML IR ONE
[2018-01-26] MEDS ORDERED: Albuterol 2.5 MG/3 ML NEBULIZER IH ONE ×2 (06:34→08:47)
[2018-01-26] MEDS: Ringers Solution, Lactated 1,000 ML IVC SCH ×6 (06:51→13:32)
[2018-01-26] MEDS ORDERED: *HR* Rocuronium Bromide 50 MG/5 ML VIAL ONE ×3 (06:53→16:36)
[2018-01-26] MEDS ORDERED: Lidocaine -MPF 4% 5 ML AMPUL ONE (06:53)
[2018-01-26] MEDS ORDERED: Dexamethasone 4 MG/ML VIAL ONE ×3 (06:53→18:49)
[2018-01-26] MEDS ORDERED: *HR* Succinylcholine 200 MG/10 ML VIAL IVP ONE (06:53)
[2018-01-26] MEDS ORDERED: Ondansetron 4 MG/2 ML VIAL ONE (06:53)
[2018-01-26] MEDS ORDERED: Lidocaine -MPF 2% 2 ML VIAL ONE ×2 (06:53→07:21)
[2018-01-26] MEDS ORDERED: *HR* Propofol 200 MG/20 ML VIAL IVP ONE (06:56)
[2018-01-26] MEDS ORDERED: *HR* FentaNYL (PF) 100 MCG/2 ML VIAL ONE ×2 (06:57→08:33)
[2018-01-26] MEDS ORDERED: *HR* Midazolam HCl 2 MG/2 ML VIAL ONE ×3 (07:00→18:37)
--- NOTE | 2018-01-26 07:04 | Anesthesia Evaluation PreOp ---
Date of Encounter: 01/26/18 Time of Encounter: 07:01 - Past History Planned Operation: R fem-pop bypass graft Cardiac History: HTN, Hyperlipidemia, Cardiac Stent (10yrs ago), Other (PAD AAA 4.2cm ECHO 10/06/17 Impressions: LVEF 55-60%. Mild left ventricular diastolic dysfunction. Normal right ventricular size and function. No significant valvular dysfunction. 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, LE bypass) Alcohol Use: none Drug use: none Medications and Allergies Aspirin Enteric Coated [Aspirin EC] 325 mg PO DAILY 10/05/17 [History] Lisinopril [Zestril] 5 mg PO HS 10/05/17 [History] Metoprolol XL (24 HR) Succ [Toprol XL] 25 mg PO HS 10/05/17 [History] Omeprazole [PriLOSEC] 20 mg PO DAILY 10/05/17 [History] Simvastatin [Zocor] 40 mg PO QPM 10/05/17 [History] Rivaroxaban [Xarelto] 15 mg PO BID #42 tablet 10/09/17 [Rx] OxyCODONE/APAP 5/325 [Percocet 5/325 MG] 1 each PO Q8HR PRN #12 tablet 10/12/17 [Rx] Cyclobenzaprine [Flexeril] 10 mg PO BID PRN 7 Days #14 tablet 12/14/17 [Rx] predniSONE [Prednisone] 50 mg PO DAILY 5 Days #5 tablet 12/14/17 [Rx] 3 Allergy/AdvReac Type Severity Reaction Status Date / Time No Known Allergies Allergy Verified 12/14/17 15:20 - Meds/Allergy Pre-op Review Medications Reviewed: Yes Allergies Reviewed: Yes Beta Blockers on Current Med List: Yes If Beta Blockers taken, Date/Time (Last Dose taken): 1600 01/25/18 Anesthesia Results - Labs Laboratory Tests 01/14/18 01/14/18 01/14/18 09:31 09:31 09:31 WBC 6.3 Hgb 7.7 L Hct 26.1 L Plt Count 250 PT 15.4 H INR 1.4 APTT 31.8 Sodium 137 Potassium 4.9 Chloride 108 H Carbon Dioxide 25 BUN 17 Creatinine 1.05 Glucose 113 H - Imaging EKG: report reviewed (SINUS RHYTHM Electronically Signed On 10-13-2017 19:29:30 EST by Nadia Mejía) Chest x-ray: report reviewed (12/2017 1. No acute abnormality.) Anesthesia Exam O2 Sat Height 1.85 m Height 1.85 m Height 1.85 m Weight 95.254 kg Weight 95.254 kg Weight 95.254 kg O2 Sat by Pulse Oximetry 100 O2 Sat by Pulse Oximetry 100 Vital Signs Temp Pulse Resp BP Pulse Ox 97.6 F 70 18 140/76 100 01/26/18 06:41 01/26/18 06:41 01/26/18 06:41 01/26/18 06:41 01/26/18 06:41 - HEENT Pupil (Motor): Pupils equal, EOMI Mallampati: II Teeth: Edentulous Oral Opening: Greater than 3 - [employer] LOC: Oriented [employer] Motor: Normal RUE, Normal LUE, Normal RLE, Normal LLE, Normal Face [employer] Sensory: Normal: RUE, LUE, RLE, LLE, Face - Cardiac Rhythm: Regular - Pulmonary Breath Sounds: bilateral Clear Respiratory Effort: Symmetrical Anesthesia Assess/Plan ASA Score: 3 Modified Sara Scale for Level of Consciousness: Cooperative, oriented, and tranquil Anesthetic Plan: General Monitoring Plan: Standard Monitors, A-Line Recovery Plan: PACU
[2018-01-26] MEDS ORDERED: EPHEDrine 50 MG/ML VIAL ONE (07:08)
[2018-01-26] MEDS ORDERED: Heparin 1,000 UNITS/500 mL 1,500 ML ONE (07:10)
[2018-01-26] MEDS ORDERED: Heparin 1,000 UNITS/500 mL 500 ML ONE ×2 (07:20→16:52)
--- NOTE | 2018-01-26 07:22 | History & Physical Report ---
Date of Encounter: 01/26/18 Time of Encounter: 07:21 24 Hour HP Update - Instructions Instructions: If the History and Physical is less than 30 days old and was completed prior to A.M. admission and or procedure and has NOT been updated on calendar day of procedure please complete this update prior to performing procedure. - Update Patient reports changes in Medical Condition: No Changes in examination, assessment, or condition: No Changes in Medication: No Preop tests/diagnostics Reviewed: Yes Surgery Remains Indicated: Yes Consent for Planned Operative Procedure(s) Verified: Yes - Pre-Operative Checklist Preoperative Checklist Indicated: No Prophylactic Antibiotic Ordered: No Home Medications Include Beta Marvin: Yes Beta Marvin Taken Today (Day of Surgery): Yes Beta Marvin Taken Yesterday (Day Prior to Surgery): Yes Is VTE Prophylaxis Indicated?: Yes
[2018-01-26] MEDS ORDERED: *HR* PHENYLEPHRINE 1,000 MCG/10 ML SYRINGE IVP ONE ×3 (07:52→12:10)
[2018-01-26] MEDS: CeFAZolin Syr 2,000MG/20 ML 2,000 MG/20 ML SYRINGE IVPB ONE ×2 (08:20→13:30)
[2018-01-26] MEDS ORDERED: Acetaminophen IV 1,000 MG/100 ML INFUS..BTL IVPB ONE (08:47)
[2018-01-26] MEDS ORDERED: Dexamethasone 4 MG/ML VIAL IVP ONE (08:47)
[2018-01-26] MEDS ORDERED: *HR* OxyCODONE Immed Rel 5 MG TABLET PO PRN ×2 (08:47→19:44)
[2018-01-26] MEDS ORDERED: Ondansetron 4 MG/2 ML VIAL IVP ONE (08:47)
[2018-01-26] MEDS ORDERED: MORPHINE SUL Oral CONC 10 MG/0.5 ML ORAL.SYG SL PRN ×2 (08:47→19:44)
[2018-01-26] MEDS ORDERED: *HR* Promethazine 25 MG/ML VIAL IVP PRN ×2 (08:47→19:44)
[2018-01-26] MEDS ORDERED: *HR* Labetalol 20 MG/4 ML SYRINGE IVP PRN (08:47)
[2018-01-26 09:08] LABS: Basophils % 0.6 %; Eosinophils # 0.1 K/mcL (0.0-0.6); Eosinophils % 1.7 %; Hematocrit 25.4 % (37.5-50.1); Hemoglobin 8.1 g/dL (12.9-16.9); Immature Granulocytes % 0.7 % (0-4); Lymphocytes % 18.4 %; Mean Corpuscular HGB Conc 31.9 g/dL (31.6-35.5); Mean Corpuscular Hemoglobin 27.6 pg (28.0-33.3); Mean Corpuscular Volume 86.4 fL (83.0-100.0); Mean Platelet Volume 10.1 fL (9.4-12.4); Monocytes # 0.7 K/mcL (0.0-1.3); Monocytes % 12.1 %; Neutrophils # 3.6 K/mcL (1.6-8.9); Platelet Count 125 K/mcL (140-400); Red Blood Count 2.94 M/mcL (4.19-5.50); Red Cell Distribution Width 16.4 % (11.5-14.5); Segmented Neutrophils % 66.5 %
[2018-01-26] MEDS ORDERED: *HR* Remifentanil 2 MG VIAL IVP ONE ×4 (09:14→16:35)
[2018-01-26 09:18] LABS: ABG Base Excess -4 mEq/L (-2 to 3); ABG HCO3 21 mEq/L (21-27); ABG Oxygen Saturation 100 % (95-98); ABG PCO2 39 mmHg (35-45); ABG PH 7.34 pH Units (7.32-7.45); ABG PO2 221 mmHg (85-104); ABG TCO2 22 mEq/L (20-26)
[2018-01-26] MEDS ORDERED: *HR* Heparin 5,000 UNIT/ML VIAL ONE ×3 (09:52→15:42)
[2018-01-26] MEDS ORDERED: Albumin Human 5% 37.5 GM/750 ML VIAL ONE (12:13)
[2018-01-26 12:26] LABS: ABG Base Excess -8 mEq/L (-2 to 3); ABG Chloride 110 mEq/L (98-107); ABG Glucose 192 mg/dL (60-95); ABG HCO3 19 mEq/L (21-27); ABG Ionized Calcium 1.19 mmol/L (1.15-1.35); ABG Oxygen Saturation 100 % (95-98); ABG PCO2 46 mmHg (35-45); ABG PH 7.22 pH Units (7.32-7.45); ABG PO2 236 mmHg (85-104); ABG TCO2 20 mEq/L (20-26)
[2018-01-26] MEDS ORDERED: *HR* Phenylephrine 10 MG/ML VIAL ONE (13:11)
[2018-01-26 13:38] LABS: Hematocrit 30.4 % (37.5-50.1)
[2018-01-26 13:47] LABS: ABG Base Excess -7 mEq/L (-2 to 3); ABG HCO3 20 mEq/L (21-27); ABG Oxygen Saturation 100 % (95-98); ABG PCO2 47 mmHg (35-45); ABG PH 7.24 pH Units (7.32-7.45); ABG PO2 406 mmHg (85-104); ABG TCO2 22 mEq/L (20-26)
[2018-01-26 13:49] LABS: Hemoglobin 9.8 g/dL (12.9-16.9)
[2018-01-26] MEDS ORDERED: Sodium Bicarbonate 50 MEQ/50 ML VIAL ONE ×2 (13:52→17:00)
[2018-01-26 14:47] LABS: ABG Base Excess -5 mEq/L (-2 to 3); ABG Chloride 111 mEq/L (98-107); ABG Glucose 162 mg/dL (60-95); ABG HCO3 22 mEq/L (21-27); ABG Ionized Calcium 1.28 mmol/L (1.15-1.35); ABG Oxygen Saturation 99 % (95-98); ABG PCO2 46 mmHg (35-45); ABG PH 7.28 pH Units (7.32-7.45); ABG PO2 131 mmHg (85-104); ABG TCO2 23 mEq/L (20-26)
[2018-01-26 15:30] LABS: Hematocrit 27.6 % (37.5-50.1)
[2018-01-26 15:36] LABS: ABG Base Excess -4 mEq/L (-2 to 3); ABG Chloride 110 mEq/L (98-107); ABG Glucose 161 mg/dL (60-95); ABG HCO3 21 mEq/L (21-27); ABG Ionized Calcium 1.14 mmol/L (1.15-1.35); ABG Oxygen Saturation 99 % (95-98); ABG PCO2 39 mmHg (35-45); ABG PH 7.35 pH Units (7.32-7.45); ABG PO2 158 mmHg (85-104); ABG TCO2 22 mEq/L (20-26)
--- NOTE | 2018-01-26 18:04 | Anesthesia Procedures ---
Date of Encounter: 01/26/18 Time of Encounter: 18:03 Procedures: Anesthesia - Central Line Placement Right IJ Supplemental Oxygen via Nasal Cannula (L/min): 2 (via ETT under GA) MD prep: mask, gown, gloves Central line prep: Chlorhexidine scrub, sterile drapes applied Ultrasound used for placement: Yes Technique: Seldinger Lumen Inserted: triple Size / Length: 7 Fr / 16 cm Post procedure: sutured in place, good blood return, all ports aspirated, flushed, capped, sterile dressing applied Patient tolerated procedure: well Complications: none
[2018-01-26] MEDS ORDERED: *HR* Morphine 10 MG/ML VIAL ONE (18:34)
--- NOTE | 2018-01-26 19:07 | Operative Note ---
Date of procedure: 01/26/18 Pre-op diagnosis: right femoral aneurysm/right Com Fem occlusion/right SFA occlusion Post-op diagnosis: same Procedure: repair right femoral aneurysm with 10 mm interposition ilio-femoral bypass graft right profunda endarterectomy right below knee popliteal endarterectomy right femoral-below knee popliteal bypass graft with 6 mm PTFE Distaflo Complications: massive blood loss Anesthesia: GETA Surgeon: Jae Foster Was there an assistant property manager present: No Estimated blood loss (cc): 5,500 Specimen: none Condition: stable Disposition: ICU Procedure in Detail: History Isaac Sena is a 72-year-old white male with a variety of medical problems. He presented with bilateral lower extremity PAD particularly on the right side. He has had progressive symptoms such as marked diminution of his lifestyle. He was found to have a markedly diminished ankle brachial index on the right. She now comes for revascularization. Patient's history is, located and includes an aortobifemoral bypass graft performed in 2002. 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 In addition he has bilateral superficial femoral artery occlusive disease. On the right side the common femoral artery is occluded immediately distal to the anastomosis. In addition to this the patient had a pulmonary embolism in September and required anticoagulation and an IVC filter. The Xarleto has been held prior to this operation. He also has unexplained anemia and has required 2 episodes of blood transfusion at the CT over the past 6 weeks. Workup for the anemia up to this point has been nondiagnostic. Procedure After informed consent was obtained the patient was taken to the operating room. General endotracheal anesthesia under arterial line pressure monitoring was performed. The abdomen groin and right lower extremity was sterilely prepped and draped. A timeout protocol was observed. An incision was made through the previous scar in the right groin. Dissection was carried down to reveal a very large pseudoaneurysm and aneurysm of the femoral area and the femoral anastomosis. As expected the dissection here was extremely tedious and difficult with marked adherence of the graft and pseudoaneurysm to the surrounding tissue. Control was obtained of the graft. The superficial femoral artery was occluded as noted on the preoperative CT angiogram. When clamping this area in order to resect the aneurysm it was noted the patient had significant bleeding from the adjacent redding arteries as well as from the wall of the graft. This required a second incision in the retroperitoneum above the inguinal ligament in order to obtain better proximal control. Unfortunately again here there was marked adhesion between the graft and the diseased redding vessel. This made for an extremely difficult dissection and a large amount of blood loss which is reflected and the total amount of blood loss for this case. Cell Saver was utilized from the beginning of this operation and a large amount of Cell Saver was returned to the patient. After very difficult and tedious dissection control was eventually obtained and the distal external iliac artery was ligated. The redding vessel was found to be extremely fragile and friable and tolerated clamping poorly leading to bleeding from the clamp sites. The same type process also was occurring at the synthetic graft. This required the use eventually of shotted clamps. The femoral aneurysm was then eventually resected. A 10 mm diameter Hemashield graft was selected. This was then anastomosed end and to the divided end of the right limb of the old aortobifemoral bypass graft. This was then sewn onto the debrided aneurysmal area of the common femoral artery. Because of the marked occlusive disease in addition to his aneurysmal disease of the right common femoral artery the profunda femoris artery was chronically occluded at its orifice. This required another extensive dissection of the profunda femoris and then to perform a transverse arteriotomy on the proximal profunda. Chronic inflammatory and atherosclerotic material was identified. This vessel was then endarterectomized. The orifice of the profunda was occluded due to the chronic thrombus in the common femoral artery. This required endarterectomy of the distal common femoral artery in order to free up the orifice so this would be widely patent. The arteriotomy on the profundal was then closed with a running 6-0 Prolene suture. After appropriate backbleeding and flushing the flow was restored into the profunda. Attention was then directed to the below-knee popliteal. CT Angiography had demonstrated occlusion of the superficial femoral artery and proximal popliteal. This required the distal anastomosis to be made at the distal below- the-knee popliteal artery. However upon opening this vessel chronic atherosclerotic material was found as well as scar tissue inside the vessel. His lead to the need for a formal endarterectomy of the popliteal artery itself. A long white fibrous material specimen was removed. This measured approximately 4 cm in length. Backbleeding was established as well as antegrade bleeding from both sides of the opened popliteal. With this done the 6 mm PTFE Distaflo graft was selected. The distal anastomosis was performed first. After this was done the graft was passed in the subsartorial plane. The proximal anastomosis was then made end of graft to side of common femoral artery anastomosis with the new Hemashield graft. This was sewn with 6-0 Prolene suture. After appropriate backbleeding and flushing the graft was opened. Excellent pulsatile flow was restored into the popliteal via this new Distaflo PTFE graft. The patient had a palpable pulse distal to the distal anastomosis. A Doppler signal was identified at the dorsalis pedis artery at the ankle. It should be noted the patient was given multiple doses of heparin during the course of this operation. The wounds were then irrigated and hemostasis achieved. The wounds were then closed in layers using absorbable suture. Dry sterile dressings were applied. Because of the large blood loss and length of this procedure no attempt was made at extubation. Therefore the patient was taken directly from the operating room to the intensive care unit. At the time of his transfer he had received 3 units of blood from the blood bank as well as platelets and approximately 8 L of crystalloid for the duration of this operation. He also received approximately 1 L of albumin as well as a Cell Saver as noted above.
[2018-01-26] MEDS ORDERED: Ondansetron 4 MG/2 ML VIAL IVP PRN (19:26)
[2018-01-26] MEDS ORDERED: Lacri-Lube 3.5 GM TUBE BOTH EYES PRN (19:26)
[2018-01-26] MEDS ORDERED: Naloxone 0.4 MG/ML INJ IVP PRN (19:26)
[2018-01-26] MEDS: 0.9 % Sodium Chloride 1,000 ML IVC SCH (19:30)
[2018-01-26] MEDS ORDERED: FentaNYL (PF) 1,000 MCG in 0.9 % Sodium Chloride 80 ML IVC SCH (19:30)
[2018-01-26] MEDS ORDERED: Dexmedetomidine HCl 400 MCG/100 ML MLS IVC SCH (19:30)
[2018-01-26] MEDS ORDERED: Ringers Solution, Lactated 1,000 ML IVC SCH (19:44)
[2018-01-26] MEDS ORDERED: *HR* Labetalol 100 MG/20 ML MDV IVP PRN (19:44)
[2018-01-26] MEDS: FentaNYL (PF) 1,000 MCG in 0.9 % Sodium Chloride 80 ML IVC SCH (19:45)
[2018-01-26] MEDS: Dexmedetomidine HCl 400 MCG/100 ML MLS IVC SCH (19:45)
[2018-01-26 20:01] LABS: Basophils % 0.1 %; Hematocrit 30.2 % (37.5-50.1); Hemoglobin 9.8 g/dL (12.9-16.9); Lymphocytes # 0.9 K/mcL (0.6-4.6); Lymphocytes % 5.5 %; Mean Corpuscular HGB Conc 32.5 g/dL (31.6-35.5); Mean Corpuscular Hemoglobin 28.4 pg (28.0-33.3); Mean Corpuscular Volume 87.5 fL (83.0-100.0); Mean Platelet Volume 9.6 fL (9.4-12.4); Monocytes % 6.6 %; Neutrophils # 13.5 K/mcL (1.6-8.9); Platelet Count 102 K/mcL (140-400); Red Blood Count 3.45 M/mcL (4.19-5.50); Red Cell Distribution Width 15.7 % (11.5-14.5); Segmented Neutrophils % 86.8 %
[2018-01-26 20:09] LABS: INR 1.3; Prothrombin Time 13.9 Seconds (9.4-12.1)
[2018-01-26 20:12] LABS: Activated Partial Thrombo Time 32.1 Seconds (26.0-36.0)
[2018-01-26 20:14] LABS: BUN/Creatinine Ratio 14 (6-26); Blood Urea Nitrogen 12 mg/dL (8-23); Calcium 7.1 mg/dL (8.6-10.3); Carbon Dioxide 20 mEq/L (23-29); Chloride 113 mEq/L (98-107); Glucose 203 mg/dL (70-105); Osmolality,Calculated 296 (280-300); Potassium 5.1 mEq/L (3.5-5.1); Sodium 140 mEq/L (136-145); eGFR For African Americans > 60 (> 60); eGFR For Non-African Americans > 60 (> 60)
[2018-01-26] MEDS ORDERED: Phenylephrine 10 MG in D5% in Water 250 ML IVC SCH (21:45)
[2018-01-26 22:03] LABS: ABG Base Excess -8 mEq/L (-2 to 3); ABG HCO3 17 mEq/L (21-27); ABG Oxygen Saturation 97 % (95-98); ABG PCO2 30 mmHg (35-45); ABG PH 7.36 pH Units (7.32-7.45); ABG PO2 97 mmHg (85-104); ABG TCO2 18 mEq/L (20-26); Blood Gas Modality ASSIST CONTROL; Blood Gas PEEP 5 cm H2O; Blood Gas Respiration Rate 12; Blood Gas VT 550 cc
[2018-01-26] MEDS: Chlorhexidine Rinse 15 ML MOUTHWASH MM SCH (22:21)
[2018-01-26] MEDS: Lacri-Lube 3.5 GM TUBE BOTH EYES SCH (22:21)
[2018-01-26 22:23] LABS: ABG Base Excess -8 mEq/L (-2 to 3); ABG HCO3 18 mEq/L (21-27); ABG Oxygen Saturation 96 % (95-98); ABG PCO2 34 mmHg (35-45); ABG PH 7.33 pH Units (7.32-7.45); ABG PO2 86 mmHg (85-104); ABG TCO2 19 mEq/L (20-26); Blood Gas Modality ASSIST CONTROL; Blood Gas PEEP 10 cm H2O; Blood Gas Respiration Rate 16; Blood Gas VT 460 cc
[2018-01-26] MEDS ORDERED: Dextrose Gel 15 GM/37.5 ML TUBE PO PRN ×2 (23:42)
[2018-01-26] MEDS ORDERED: Potassium Phosphate 44 MEQ in 0.9 % Sodium Chloride 250 ML IVPB PRN (23:42)
[2018-01-26] MEDS ORDERED: *HR* Dextrose 50 % in Water (Syg) 50 ML SYRINGE IVP PRN (23:42)
[2018-01-26] MEDS ORDERED: D5% in Water 1,000 ML IVC PRN (23:42)
[2018-01-27 00:28] LABS: Basophils % 0.1 %
[2018-01-27 00:30] LABS: Hemoglobin 9.1 g/dL (12.9-16.9); Immature Granulocytes % 0.9 % (0-4); Immature Platelets 4.2 % (1.1-6.1); Lymphocytes # 0.8 K/mcL (0.6-4.6); Lymphocytes % 4.7 %; Mean Corpuscular HGB Conc 32.5 g/dL (31.6-35.5); Mean Corpuscular Hemoglobin 28.3 pg (28.0-33.3); Mean Corpuscular Volume 87.2 fL (83.0-100.0); Mean Platelet Volume 10.2 fL (9.4-12.4); Monocytes # 1.3 K/mcL (0.0-1.3); Monocytes % 7.2 %; Neutrophils # 15.4 K/mcL (1.6-8.9); Platelet Count 92 K/mcL (140-400); Red Blood Count 3.21 M/mcL (4.19-5.50); Red Cell Distribution Width 15.8 % (11.5-14.5); Segmented Neutrophils % 87.1 %
[2018-01-27 00:30] LABS: VBG Ionized Calcium 1.05 mmol/L (1.15-1.35)
[2018-01-27 00:45] LABS: BUN/Creatinine Ratio 17 (6-26); Blood Urea Nitrogen 16 mg/dL (8-23); Calcium 7.2 mg/dL (8.6-10.3); Carbon Dioxide 19 mEq/L (23-29); Chloride 113 mEq/L (98-107); Glucose 197 mg/dL (70-105); Osmolality,Calculated 297 (280-300); Potassium 4.8 mEq/L (3.5-5.1); Sodium 140 mEq/L (136-145); eGFR For African Americans > 60 (> 60); eGFR For Non-African Americans > 60 (> 60)
[2018-01-27 00:48] LABS: Magnesium 1.3 mg/dL (1.6-2.6)
--- NOTE | 2018-01-27 00:57 | Pulmonology Consult Note ---
<Maurizio Benoit - Last Filed: 01/27/18 00:52> Date of Encounter: 01/27/18 Time of Encounter: 00:52 Assessment and Plan (1) Post-op bleeding Current Visit: Yes Status: Acute Patient was transferred here from the operating room where the surgeon Dr. Foster was doing vascular surgery due to a right femoral aneurysm, right common femoral occlusion, right SFA occlusion where he did a repair the right femoral aneurysm with 10 mm interposition iliofemoral bypass graft, right profunda endarterectomy, right below knee popliteal endarterectomy, right from oral below knee popliteal bypass graft with 6 mm PTFE diaster flow. Patient had approximately 5500 mL of blood loss during the surgery where he received 1950 mL of Cell Saver, 3 units packed red blood cells transfused, 2 units FFP were on hold one bag of platelets was transfused and at 1549 had a total of 6 L of normal saline including what was given during blood transfusion. Patient was placed on the ventilator here under ARDS protocol with a tidal volume of 460, rate of 18 and a PEEP of 10. Blood casts showed 7.33/33/86/17. Patient was kept at this ventilator rate. Sedation that was used included Precedex and fentanyl. Patient did become mildly hypotensive at 70/40 we did change the sedation rates to elevated as our goal for blood pressure was between 90 and 120 systolic. I did consult with Dr. Foster about if patient does become hypotensive what pressors would be best to to keep from vasoconstriction and the procedure done today. He recommended dopamine first line and Rubén-Synephrine second line. These were ordered but have not been given at this time. Plan for extubation later today if patient tolerates. Continue to monitor urine output and check for compartment syndrome at the procedure site or in the lower abdomen. We will order CPK. We will repeat labs to be sure patient's hemoglobin is stable. Continue lactated Ringer's at 125 mL per hour. We will also do I protocol for any abnormalities. Follow nurses protocol Dr. Foster continued his orders including cefazolin, labetalol if hypertensive Qualifiers: Surgical complication system/body Area: circulatory system Procedure type: circulatory, unspecified Qualified Code(s): I97.618 - Postprocedural hemorrhage of a circulatory system organ or structure following other circulatory system procedure (2) Lactic acidosis Current Visit: Yes Status: Acute Patient with elevated lactate of 5. 1 repeat was done and showed 4.7 approximately 5 hours later. This is expected due to recent surgery. We will continue to monitor and give IV hydration. (3) Hypocalcemia Current Visit: Yes Status: Acute Patient was hypocalcemic did start I protocol that will be given if needed. 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 Yoder in the OR today. (5) PAD (peripheral artery disease) Current Visit: No Status: Chronic Patient does have known peripheral artery disease as the reason for today surgery done by Dr. Yoder the vascular surgeon. Please refer to above documentation for impression and plan (6) DVT prophylaxis Current Visit: No Status: Acute Patient's currently on heparin after surgery. History of Present Illness Consult date: 01/27/18 Requesting physician: Jae Foster Reason for consult: other (Ventilator and ICU management) Chief complaint: Peripheral vascular disease History of present illness: Mr. Sena is a 72-year-old male who is transferred to the ICU from the operating room by Dr. Yoder after a vascular surgery where they did a repair of the right femoral aneurysm with 10 mm interposition iliofemoral bypass graft , right profunda endarterectomy, right below knee popliteal endarterectomy, right from oral below knee popliteal bypass graft with 6 mm PTFE diastole flow. Patient had an increased amount of fluid loss after the procedure with a had to give him 5 L of crystalloid including packed red blood cells and platelets. This is all due to approximately a 5500 mL estimated blood loss during the surgery. Patient was still intubated on arrival he was not under any sedation at this time. Dr. Yoder mainly took him here to be further evaluated due to the blood loss and plan was to extubate patient tomorrow as well as there were no complications. 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 Patient does have a [id number] smoking history and a history of pulmonary embolism. Does have history of GERD. Patient has no other pulmonary history. Pulmonology was being consult did due to ventilator management as well as ICU management while patient was here. Past Med Surg Social Fam HX - Past Medical History Medical history: aortic aneurysm, coronary artery disease, hyperlipidemia, hypertension, peripheral artery disease, pulmonary embolus Psychiatric history: no psych history - Past Surgical History Surgical History: angioplasty/stent, coronary bypass (CABG), vascular surgery - Social History Smoking Status: Current every day smoker Smokeless Tobacco Status: No Alcohol use: none Drug use: none - Family History Father Family Member Ethnicity: Non- Living Status: Hx Family Cancer: Yes (Leukemia) Mother Family Member Ethnicity: Non- Living Status: Brother Family Member Ethnicity: Non- Living Status: Hx Family Cancer: Yes (Prostate) Sister Family Member Ethnicity: Non- Living Status: Still Living Medications and Allergies Aspirin Enteric Coated [Aspirin EC] 325 mg PO DAILY 10/05/17 [History] Lisinopril [Zestril] 5 mg PO HS 10/05/17 [History] Metoprolol XL (24 HR) Succ [Toprol XL] 25 mg PO HS 10/05/17 [History] Omeprazole [PriLOSEC] 20 mg PO DAILY 10/05/17 [History] Simvastatin [Zocor] 40 mg PO QPM 10/05/17 [History] Ascorbic Acid [Vitamin C] 250 mg PO BID 01/26/18 [History] Ferrous Gluconate 324 mg PO BID 01/26/18 [History] Furosemide [Lasix] 20 mg PO DAILY PRN 01/26/18 [History] Rivaroxaban [Xarelto] 10 mg PO 1700 01/26/18 [History] 3 Allergy/AdvReac Type Severity Reaction Status Date / Time No Known Allergies Allergy Verified 01/26/18 07:23 ROS unobtainable: due to endotracheal tube All Systems: The remainder of the systems were reviewed and are negative Physical Examination Vital Signs: Vital Signs, Last 4 Hours Temp Pulse Resp BP Pulse Ox 01/27/18 00:00 97.7 F 78 18 109/56 99 01/26/18 23:24 22 111/57 98 01/26/18 23:00 76 22 85/47 99 01/26/18 22:00 97.7 F 76 28 96/54 99 01/26/18 21:00 77 22 85/45 99 General appearance: no acute distress, other (Somnolent and sedated due to intubation) Eyes: nonicteric ENT: oropharynx moist Neck: supple Effort: normal Inspection: normal Auscultation: bilateral: diminished breath sounds, rhonchi Cardiovascular: regular rate and rhythm Gastrointestinal: normoactive bowel sounds, non-tender, non-distended Extremities: no cyanosis, no edema, no clubbing, cool, other (Left posterior tibial pulses were found he had Doppler otherwise no pulses found on exam.) Musculoskeletal: no deformities pupils equal and round Ventilator Settings Ventilator Settings: Ventilator Settings, Last 8 Hours Ventilator Mode VC+ Ventilator Mode VC+ Ventilator Mode VC+ Ventilator Mode VC+ Ventilator Mode VC+ Ventilator Mode VC+ Ventilator Mode A/C Ventilator Mode VC+ Ventilator Tidal Volume 460 Setting Ventilator Tidal Volume 460 Setting Ventilator Tidal Volume 460 Setting Ventilator Tidal Volume 460 Setting Ventilator Tidal Volume 460 Setting Ventilator Tidal Volume 460 Setting Ventilator Tidal Volume 460 Setting Ventilator Tidal Volume 550 Setting Ventilator Tidal Volume 550 Setting Ventilator Tidal Volume 550 Setting Ventilator Tidal Volume 550 Setting Ventilator Respiratory Rate 16 Setting Ventilator Respiratory Rate 16 Setting Ventilator Respiratory Rate 16 Setting Ventilator Respiratory Rate 16 Setting Ventilator Respiratory Rate 16 Setting Ventilator Respiratory Rate 16 Setting Ventilator Respiratory Rate 16 Setting Ventilator Respiratory Rate 12 Setting Ventilator Respiratory Rate 12 Setting Ventilator Respiratory Rate 12 Setting Ventilator Respiratory Rate 12 Setting Actual Respiratory Rate 18 Actual Respiratory Rate 24 Actual Respiratory Rate 22 Actual Respiratory Rate 28 Actual Respiratory Rate 22 Actual Respiratory Rate 18 Actual Respiratory Rate 20 Actual Respiratory Rate 26 Actual Respiratory Rate 18 Positive End Expiratory 10 Pressure Positive End Expiratory 10 Pressure Positive End Expiratory 10 Pressure Positive End Expiratory 10 Pressure Positive End Expiratory 10 Pressure Positive End Expiratory 10 Pressure Positive End Expiratory 10 Pressure Positive End Expiratory 5 Pressure Positive End Expiratory 5 Pressure Positive End Expiratory 5 Pressure Positive End Expiratory 5 Pressure Peak Inspiratory Airway 10 Pressure Peak Inspiratory Airway 14 Pressure Peak Inspiratory Airway 7.8 Pressure Results - Laboratory Findings CBC and BMP: 01/27/18 00:05 01/27/18 00:05 ABG ABG pH 7.33 pH Units (7.32-7.45) 01/26/18 22:06 ABG pCO2 34 mmHg (35-45) L 01/26/18 22:06 ABG pO2 86 mmHg (85-104) 01/26/18 22:06 ABG O2 Saturation 96 % (95-98) 01/26/18 22:06 PT/INR, D-dimer PT 13.9 Seconds (9.4-12.1) H 01/26/18 19:36 Abnormal lab findings: Abnormal lab results WBC 17.7 K/mcL (4.3-11.1) H 01/27/18 00:05 RBC 3.21 M/mcL (4.19-5.50) L 01/27/18 00:05 Hgb 9.1 g/dL (12.9-16.9) L 01/27/18 00:05 Hct 28.0 % (37.5-50.1) L 01/27/18 00:05 RDW 15.8 % (11.5-14.5) H 01/27/18 00:05 Plt Count 92 K/mcL (140-400) L 01/27/18 00:05 Neutrophils # 15.4 K/mcL (1.6-8.9) H 01/27/18 00:05 PT 13.9 Seconds (9.4-12.1) H 01/26/18 19:36 ABG pCO2 34 mmHg (35-45) L 01/26/18 22:06 ABG HCO3 18 mEq/L (21-27) L 01/26/18 22:06 ABG Total CO2 19 mEq/L (20-26) L 01/26/18 22:06 ABG Base Excess -8 mEq/L (-2 to 3) L 01/26/18 22:06 ABG Hematocrit 25.0 % (37.5-50.1) L 01/26/18 15:16 ABG Chloride 110 mEq/L (98-107) H 01/26/18 15:16 Glucose 161 mg/dL (60-95) H 01/26/18 15:16 Chloride 113 mEq/L (98-107) H 01/27/18 00:05 Carbon Dioxide 19 mEq/L (23-29) L 01/27/18 00:05 Glucose 197 mg/dL (70-105) H 01/27/18 00:05 POC Glucose 169 mg/dL (70-99) H 01/26/18 23:49 Lactic Acid 5.1 mmol/L (0.5-2.2) H* 01/26/18 19:36 Calcium 7.2 mg/dL (8.6-10.3) L 01/27/18 00:05 Venous Ioniz Calcium 1.05 mmol/L (1.15-1.35) L 01/27/18 00:28 Magnesium 1.3 mg/dL (1.6-2.6) L 01/27/18 00:05 Arterial Blood Ionized Calcium 1.14 mmol/L (1.15-1.35) L 01/26/18 15:16 - Clinical Findings Intake & Output: Intake & Output 01/26/18 01/26/18 01/27/18 15:59 23:59 07:59 Intake Total 5040 / 5040 38 / 38 Output Total 5780 / 5780 Balance 5040 / 5040 -5742 / -5742 -20 Weight 100.7 kg Consult Discharge Plan - Plan Referrals: TYREE,PCP [Primary Care Provider] - 02/04/18 12:45 pm Jae Foster MD [Partnered Physician] - 02/17/18 9:45 am () <Nabeel Maddox W - Last Filed: 01/27/18 09:24> Date of Encounter: 01/27/18 All Systems: The remainder of the systems were reviewed and are negative Physical Examination Vital Signs: Vital Signs, Last 4 Hours Temp Pulse Resp BP Pulse Ox 01/27/18 06:00 80 19 107/52 96 01/27/18 05:30 18 96 01/27/18 05:00 76 18 107/53 97 01/27/18 04:00 97.2 F L 76 19 110/53 97 01/27/18 03:34 19 104/49 97 01/27/18 03:00 74 18 101/47 97 Ventilator Settings Ventilator Settings: Ventilator Settings, Last 8 Hours Ventilator Mode VC+ Ventilator Mode VC+ Ventilator Mode VC+ Ventilator Mode VC+ Ventilator Mode VC+ Ventilator Mode VC+ Ventilator Mode VC+ Ventilator Mode VC+ Ventilator Tidal Volume 450 Setting Ventilator Tidal Volume 460 Setting Ventilator Tidal Volume 460 Setting Ventilator Tidal Volume 450 Setting Ventilator Tidal Volume 450 Setting Ventilator Tidal Volume 460 Setting Ventilator Tidal Volume 450 Setting Ventilator Tidal Volume 450 Setting Ventilator Tidal Volume 460 Setting Ventilator Tidal Volume 450 Setting Ventilator Tidal Volume 460 Setting Ventilator Tidal Volume 460 Setting Ventilator Tidal Volume 460 Setting Ventilator Respiratory Rate 16 Setting Ventilator Respiratory Rate 16 Setting Ventilator Respiratory Rate 16 Setting Ventilator Respiratory Rate 16 Setting Ventilator Respiratory Rate 16 Setting Ventilator Respiratory Rate 16 Setting Ventilator Respiratory Rate 16 Setting Ventilator Respiratory Rate 16 Setting Ventilator Respiratory Rate 16 Setting Ventilator Respiratory Rate 16 Setting Ventilator Respiratory Rate 16 Setting Ventilator Respiratory Rate 16 Setting Ventilator Respiratory Rate 16 Setting Actual Respiratory Rate 19 Actual Respiratory Rate 20 Actual Respiratory Rate 18 Actual Respiratory Rate 18 Actual Respiratory Rate 18 Actual Respiratory Rate 18 Actual Respiratory Rate 18 Actual Respiratory Rate 22 Actual Respiratory Rate 19 Actual Respiratory Rate 18 Actual Respiratory Rate 24 Actual Respiratory Rate 22 Positive End Expiratory 10 Pressure Positive End Expiratory 10 Pressure Positive End Expiratory 10 Pressure Positive End Expiratory 10 Pressure Positive End Expiratory 10 Pressure Positive End Expiratory 10 Pressure Positive End Expiratory 10 Pressure Positive End Expiratory 10 Pressure Positive End Expiratory 10 Pressure Positive End Expiratory 10 Pressure Positive End Expiratory 10 Pressure Positive End Expiratory 10 Pressure Positive End Expiratory 10 Pressure Peak Inspiratory Airway 9.9 Pressure Peak Inspiratory Airway 9.7 Pressure Peak Inspiratory Airway 9.8 Pressure Peak Inspiratory Airway 10 Pressure Results - Laboratory Findings CBC and BMP: 01/27/18 06:05 01/27/18 06:05 ABG ABG pH 7.35 pH Units (7.32-7.45) 01/27/18 05:32 ABG pCO2 34 mmHg (35-45) L 01/27/18 05:32 ABG pO2 78 mmHg (85-104) L 01/27/18 05:32 ABG O2 Saturation 95 % (95-98) 01/27/18 05:32 PT/INR, D-dimer PT 13.9 Seconds (9.4-12.1) H 01/26/18 19:36 Abnormal lab findings: Abnormal lab results WBC 17.5 K/mcL (4.3-11.1) H 01/27/18 06:05 RBC 2.96 M/mcL (4.19-5.50) L 01/27/18 06:05 Hgb 8.4 g/dL (12.9-16.9) L 01/27/18 06:05 Hct 26.0 % (37.5-50.1) L 01/27/18 06:05 RDW 16.0 % (11.5-14.5) H 01/27/18 06:05 Plt Count 88 K/mcL (140-400) L 01/27/18 06:05 Neutrophils # 15.2 K/mcL (1.6-8.9) H 01/27/18 06:05 Monocytes # 1.4 K/mcL (0.0-1.3) H 01/27/18 06:05 Nucleated RBCs/100 WBC 0.2 /100 WBC (0) H 01/27/18 06:05 PT 13.9 Seconds (9.4-12.1) H 01/26/18 19:36 ABG pCO2 34 mmHg (35-45) L 01/27/18 05:32 ABG pO2 78 mmHg (85-104) L 01/27/18 05:32 ABG HCO3 19 mEq/L (21-27) L 01/27/18 05:32 ABG Base Excess -6 mEq/L (-2 to 3) L 01/27/18 05:32 ABG Hematocrit 25.0 % (37.5-50.1) L 01/26/18 15:16 ABG Chloride 110 mEq/L (98-107) H 01/26/18 15:16 Glucose 161 mg/dL (60-95) H 01/26/18 15:16 Chloride 117 mEq/L (98-107) H 01/27/18 06:05 Carbon Dioxide 19 mEq/L (23-29) L 01/27/18 06:05 Glucose 156 mg/dL (70-105) H 01/27/18 06:05 POC Glucose 169 mg/dL (70-99) H 01/26/18 23:49 Calculated Osmolality 304 (280-300) H 01/27/18 06:05 Lactic Acid 3.7 mmol/L (0.5-2.2) H 01/27/18 06:05 Calcium 7.2 mg/dL (8.6-10.3) L 01/27/18 06:05 Venous Ioniz Calcium 1.09 mmol/L (1.15-1.35) L 01/27/18 06:17 Creatine Kinase 6015 Units/L (30-223) H 01/27/18 00:05 Arterial Blood Ionized Calcium 1.14 mmol/L (1.15-1.35) L 01/26/18 15:16 - Clinical Findings Intake & Output: Intake & Output 01/26/18 01/26/18 01/27/18 15:59 23:59 07:59 Intake Total 5040 / 5040 38 / 38 1422 / 1422 Output Total 5780 / 5780 115 / 115 Balance 5040 / 5040 -5742 / -5742 1307 / 1307 Weight 100.7 kg - Attending Attestation I examined this patient and my medical decision-making was reviewed with the Resident Physician. I agree with the documented findings, disposition and treatment plan as described except to the extent set forth below. We independently had [id number] contact with the patient Patient seen and examined at bedside Labs, radiology, chart personally reviewed. Management was reviewed during multidisciplinary critical care rounds. FRONT OFFICE MEDICAL ASSISTANT: Patient is in pain but otherwise awake and alert we will continue sedation and analgesia for vent management as well as postoperative pain goal Amezquita 2-3 Pulm: Acute respiratory failure with acceptable gas exchange today we will continue low tidal lung ventilatory strategy we had initially started in CPAP trial but plan was to return patient to the OR so switch back to assist control. Chest x-ray was reviewed without acute process. The patient is high- risk for developing ARDS Card/Vasc: The patient is postop day 1 status post right femoral aneurysm repair and below the knee endarterectomy along with popliteal bypass graft; unfortunately the surgery was complicated by massive blood loss requiring high volume of intraoperative crystalloid ,colloid, and blood product transfusion. Hemostasis was achieved and planned revisions were completed however patient today did not have a dopplerable pulse in the right leg and had excruciating pain discussed the case with vascular surgeon and he will return patient to the operating room today as he fears occlusion of distal graft. His been borderline hypotension but has not required vasopressor FEN-GI: Will remain nothing by mouth for now GI prophylaxis given Renal: Olguric over last 12 hours without evidence of acute kidney injury he is at high risk for developing os prerenal azotemia and ATN because of fluid shifts and hypotension ID: Elevated white count generally related to postoperative stress no clear evidence of infection elevation lactate related to post operative course and is trending down we will continue to monitor blood threshold for obtaining blood cultures if fever spike or worsening leukocytosis. Heme/Onc: DVT prophylaxis will be SCDs on the nonsurgical extremity is too high risk of bleeding for heparin at this time but we will continue to monitor this and discuss with vascular surgeon regarding timing of institution. Otherwise H& H has been stable overnight Endo: Glucose Monitored Integ/MSK: Skin Care per routine ICU Nursing Protocol to prevent ulcers. Lines: All lines examined without evidence of infection : Dispo: Remain in ICU for close monitoring CODE: Full
[2018-01-27] MEDS: Lacri-Lube 3.5 GM TUBE BOTH EYES SCH ×7 (01:08→23:44)
[2018-01-27] MEDS: CeFAZolin Pre 2,000 MG/100 ML 2,000 MG/100 ML BAG IVPB SCH ×3 (01:08→17:37)
[2018-01-27] MEDS: 0.9 % Sodium Chloride 1,000 ML IVC SCH (03:23)
[2018-01-27] MEDS: Dexmedetomidine HCl 400 MCG/100 ML MLS IVC SCH ×2 (03:24→20:34)
[2018-01-27] MEDS: FentaNYL (PF) 1,000 MCG in 0.9 % Sodium Chloride 80 ML IVC SCH ×4 (03:25→23:45)
[2018-01-27 05:50] LABS: ABG Base Excess -6 mEq/L (-2 to 3); ABG HCO3 19 mEq/L (21-27); ABG Oxygen Saturation 95 % (95-98); ABG PCO2 34 mmHg (35-45); ABG PH 7.35 pH Units (7.32-7.45); ABG PO2 78 mmHg (85-104); ABG TCO2 20 mEq/L (20-26); Blood Gas Modality PRVC; Blood Gas PEEP 10 cm H2O; Blood Gas Respiration Rate 16; Blood Gas VT 460 cc
[2018-01-27] MEDS ORDERED: Famotidine 20 MG/2 ML VIAL IVP SCH (06:00)
[2018-01-27] MEDS ORDERED: 0.9 % Sodium Chloride 500 ML ONE (06:13)
[2018-01-27 06:19] LABS: VBG Ionized Calcium 1.09 mmol/L (1.15-1.35)
[2018-01-27 06:30] LABS: Basophils % 0.1 %; Mean Corpuscular Volume 87.8 fL (83.0-100.0); Nucleated Red Blood Cells 0.2 /100 WBC (0); Red Blood Count 2.96 M/mcL (4.19-5.50)
[2018-01-27 06:31] LABS: Hemoglobin 8.4 g/dL (12.9-16.9); Immature Granulocytes % 0.7 % (0-4); Immature Platelets 5.5 % (1.1-6.1); Lymphocytes # 0.8 K/mcL (0.6-4.6); Lymphocytes % 4.7 %; Mean Corpuscular HGB Conc 32.3 g/dL (31.6-35.5); Mean Corpuscular Hemoglobin 28.4 pg (28.0-33.3); Mean Platelet Volume 10.5 fL (9.4-12.4); Monocytes # 1.4 K/mcL (0.0-1.3); Monocytes % 7.7 %; Neutrophils # 15.2 K/mcL (1.6-8.9); Segmented Neutrophils % 86.8 %
[2018-01-27 06:37] LABS: BUN/Creatinine Ratio 19 (6-26); Blood Urea Nitrogen 20 mg/dL (8-23); Calcium 7.2 mg/dL (8.6-10.3); Carbon Dioxide 19 mEq/L (23-29); Chloride 117 mEq/L (98-107); Glucose 156 mg/dL (70-105); Magnesium 1.6 mg/dL (1.6-2.6); Osmolality,Calculated 304 (280-300); Phosphorous 2.7 mg/dL (2.7-4.5); Sodium 144 mEq/L (136-145); eGFR For African Americans > 60 (> 60); eGFR For Non-African Americans > 60 (> 60)
[2018-01-27 06:45] LABS: Platelet Count 88 K/mcL (140-400)
[2018-01-27] MEDS ORDERED: Albumin 25% 25gram/100mL 25 GM/100 ML IV.SOLN IVPB ONE (07:21)
[2018-01-27 08:04] LABS: Creatine Kinase 12343 Units/L (30-223)
[2018-01-27] MEDS: Chlorhexidine Rinse 15 ML MOUTHWASH MM SCH ×2 (08:08→21:21)
[2018-01-27] MEDS ORDERED: Heparin 25,000 UNIT/500 ML D5W 25,000 UNIT/500 ML BAG IVC SCH (08:30)
[2018-01-27] MEDS ORDERED: *HR* Heparin 5,000 UNIT/ML VIAL IVP ONE ×2 (08:45→18:00)
[2018-01-27] MEDS ORDERED: Pantoprazole 40 MG VIAL IVP SCH (09:00)
--- NOTE | 2018-01-27 09:16 | Anesthesia Progress Note ---
Date of Encounter: 01/27/18 Time of Encounter: 09:13 Anesthesia Note - Note Note: 01/27/18 09:13 This patient underwent a 12 hour surgery yesterday, received significant cell saver blood and packed RBCs and platelets. Coming back for exploration. No significant interval change in history other than above. All lines still in place and still intubated. New labs are below: 01/27/18 09:17 Laboratory Tests 10/05/17 01/26/18 01/27/18 08:00 19:36 06:05 WBC 17.5 H Hgb 8.4 L Hct 26.0 L Plt Count 88 L PT 13.9 H INR 1.3 APTT 32.1 D-Dimer 44654 H Sodium Potassium Chloride Carbon Dioxide BUN Creatinine Lactic Acid Calcium Creatine Kinase 01/27/18 01/27/18 06:05 06:05 WBC Hgb Hct Plt Count PT INR APTT D-Dimer Sodium 144 Potassium 5.0 Chloride 117 H Carbon Dioxide 19 L BUN 20 Creatinine 1.04 Lactic Acid 3.7 H Calcium 7.2 L Creatine Kinase 38394 H 01/27/18 09:17 Will proceed to OR.
[2018-01-27 09:18] LABS: Estimated Average Glucose 128 mg/dl; Hemoglobin A1C 6.1 %
[2018-01-27] MEDS ORDERED: *HR* Phenylephrine 10 MG/ML VIAL ONE (09:43)
[2018-01-27] MEDS ORDERED: *HR* Propofol 200 MG/20 ML VIAL IVP ONE (09:43)
[2018-01-27] MEDS ORDERED: Heparin 1,000 UNITS/500 mL 1,500 ML ONE (09:44)
[2018-01-27] MEDS ORDERED: *HR* EPINEPHrine 1 MG/ML AMPUL ONE (09:45)
[2018-01-27] MEDS ORDERED: *HR* Rocuronium Bromide 50 MG/5 ML VIAL ONE (09:45)
[2018-01-27] MEDS ORDERED: *HR* Remifentanil 2 MG VIAL IVP ONE (10:19)
[2018-01-27 10:22] LABS: Red Blood Count 2.59 M/mcL (4.19-5.50); Red Cell Distribution Width 16.1 % (11.5-14.5)
[2018-01-27 10:24] LABS: Hematocrit 22.4 % (37.5-50.1); Hemoglobin 7.1 g/dL (12.9-16.9); Immature Platelets 5.2 % (1.1-6.1); Mean Corpuscular HGB Conc 31.7 g/dL (31.6-35.5); Mean Corpuscular Hemoglobin 27.4 pg (28.0-33.3); Mean Corpuscular Volume 86.5 fL (83.0-100.0); Mean Platelet Volume 10.7 fL (9.4-12.4)
[2018-01-27 10:44] LABS: INR 1.2; Prothrombin Time 12.8 Seconds (9.4-12.1)
[2018-01-27 10:47] LABS: Activated Partial Thrombo Time 27.7 Seconds (26.0-36.0)
[2018-01-27] MEDS ORDERED: *HR* Metoprolol 5 MG/5 ML VIAL IVP ONE (11:11)
--- NOTE | 2018-01-27 12:19 | Event Note ---
Date of Encounter: 01/27/18 Time of Encounter: 08:00 Pt in ICU overnight on Vent. Had episode of hypotension into 70's overnight. No doopler signals in right foot. decreased cap refill on right. Pt indicates pain in right leg. Assessment is that the right bpg has thrombosed. As pt is now hemodynamically stable will return to OR as emergency this AM for right graft thrombectomy. Discussed with family in ICU.
--- NOTE | 2018-01-27 12:25 | Operative Note ---
Date of procedure: 01/27/18 Pre-op diagnosis: thrombosed right leg bypass graft Post-op diagnosis: same Procedure: thrombectomy of right leg bypass graft Complications: none Anesthesia: GETA, other Surgeon: Jae Foster Was there an seismic survey assistant present: No Estimated blood loss (cc): 400 Specimen: 0 Condition: stable Disposition: ICU Procedure in Detail: History Isaac Sena is a 72-year-old white male who had undergone an extensive vascular reconstruction yesterday. He was in the intensive care unit overnight. He had an episode of hypotension. On morning rounds he was noted to have no Doppler signals in the right foot. He did have Doppler signals in the left foot. Because of this patient was recommended to go back to the operating room for graft thrombectomy. He is hemodynamically stable this morning. Procedure After informed consent was obtained from the family as the patient was still intubated the patient was taken from the intensive care unit to the operating room. Gen. endotracheal anesthesia was established through the already placed endotracheal tube. The right lower extremity was sterilely prepped and draped. A timeout protocol was observed. The below-knee incision was opened. The graft was found to be thrombosed. Controls obtained of the graft and [place] vessel. A transverse graftotomy was made. Fresh thrombus was identified in the graft area a 4 [place] Mey catheter was used to thrombectomize the graft. Catheter was able to be passed from the popliteal to the level of the ankle. Excellent backflow was established. This was flushed with heparinized saline. Attention was then directed proximally. A 4 [place] 5 [place] and 6 [place] Mey catheter were used to thrombectomize the graft. Large amount of fresh clot was removed. Excellent pulsatile flow was achieved. The graft was then back flushed with heparinized saline and clamped. The graftotomy was then closed with a running 6- 0 Prolene suture. Leaving a space open the area was flushed and then the final few sutures placed. The clamp was then removed. The patient had an excellent pulse in the graft into the [place] artery. The popliteal artery distal to the anastomosis had an excellent pulse. Excellent Doppler signals were identified here as well that were triphasic. Doppler signals were also identified at the ankle over the dorsalis pedis, posterior tibial, and peroneal artery. With this documentation of reconstitution of flow the wound was then irrigated. Hemostasis was achieved. The wound was then closed in layers with absorbable suture. A dry sterile dressing was applied. The patient was taken from the operating room back to the ICU. He remained intubated. He was on no hemodynamic drips. Cell Saver was used for this procedure and approximately 250 mL's of Cell Saver was returned to the patient.
[2018-01-27] MEDS ORDERED: *HR* FentaNYL (PF) 100 MCG/2 ML VIAL ONE (12:56)
--- NOTE | 2018-01-27 16:19 | Electrocardiograph Report ---
[place] [id number] Test Date: 2018-01-26 Pat Name: Isaac Sena Department: 109 Room: [facility] Gender: M Night Warehouse Manager: LINDA : 1945 Requested By: Jae Foster Order Number: [id number] Reading MD: Nayely Lopez Measurements Intervals [place] Rate: 93 P: 47 OR: 149 QRS: 13 QRSD: 88 T: 87 QT: 368 QTc: 419 Interpretive Statements SINUS RHYTHM LOW QRS VOLTAGE IN PRECORDIAL LEADS Electronically Signed On 01-27-2018 16:18:08 EDT by Nayely Lopez
[2018-01-27] MEDS ORDERED: Ringers Solution, Lactated 1,000 ML IVC SCH (16:45)
[2018-01-27 16:58] LABS: Hemoglobin 7.3 g/dL (12.9-16.9); Red Cell Distribution Width 16.2 % (11.5-14.5)
[2018-01-27 16:59] LABS: Basophils % 0.1 %; Hematocrit 21.6 % (37.5-50.1); Immature Granulocytes % 0.8 % (0-4); Immature Platelets 5.3 % (1.1-6.1); Lymphocytes # 1.4 K/mcL (0.6-4.6); Mean Corpuscular HGB Conc 33.8 g/dL (31.6-35.5); Mean Corpuscular Hemoglobin 29.6 pg (28.0-33.3); Mean Corpuscular Volume 87.4 fL (83.0-100.0); Mean Platelet Volume 10.7 fL (9.4-12.4); Monocytes # 2.3 K/mcL (0.0-1.3); Monocytes % 9.6 %; Nucleated Red Blood Cells 0.1 /100 WBC (0); Red Blood Count 2.47 M/mcL (4.19-5.50); Segmented Neutrophils % 83.5 %
[2018-01-27 17:01] LABS: Platelet Count 84 K/mcL (140-400)
[2018-01-27 17:42] LABS: BUN/Creatinine Ratio 23 (6-26); Blood Urea Nitrogen 22 mg/dL (8-23); Calcium 7.4 mg/dL (8.6-10.3); Carbon Dioxide 20 mEq/L (23-29); Chloride 113 mEq/L (98-107); Creatine Kinase 15648 Units/L (30-223); Glucose 158 mg/dL (70-105); Osmolality,Calculated 293 (280-300); Potassium 4.8 mEq/L (3.5-5.1); Sodium 138 mEq/L (136-145); eGFR For African Americans > 60 (> 60); eGFR For Non-African Americans > 60 (> 60)
[2018-01-27] MEDS ORDERED: MORPHINE SUL Oral CONC 10 MG/0.5 ML ORAL.SYG SL PRN (18:00)
[2018-01-27] MEDS ORDERED: Potassium Phosphate 44 MEQ in 0.9 % Sodium Chloride 250 ML IVPB PRN (18:00)
[2018-01-27] MEDS ORDERED: *HR* Promethazine 25 MG/ML VIAL IVP PRN (18:00)
[2018-01-27] MEDS ORDERED: Dextrose Gel 15 GM/37.5 ML TUBE PO PRN ×2 (18:00)
[2018-01-27] MEDS ORDERED: *HR* Dextrose 50 % in Water (Syg) 50 ML SYRINGE IVP PRN (18:00)
[2018-01-27] MEDS ORDERED: *HR* Labetalol 100 MG/20 ML MDV IVP PRN (18:00)
[2018-01-27] MEDS ORDERED: D5% in Water 1,000 ML IVC PRN (18:00)
[2018-01-27] MEDS ORDERED: Naloxone 0.4 MG/ML INJ IVP PRN (18:00)
[2018-01-27] MEDS ORDERED: Ondansetron 4 MG/2 ML VIAL IVP PRN (18:00)
[2018-01-27] MEDS ORDERED: Lacri-Lube 3.5 GM TUBE BOTH EYES PRN (18:00)
[2018-01-27] MEDS: Heparin 25,000 UNIT/500 ML D5W 25,000 UNIT/500 ML BAG IVC SCH (20:31)
[2018-01-27] MEDS: Ringers Solution, Lactated 1,000 ML IVC SCH (20:31)
[2018-01-27] MEDS: Phenylephrine 10 MG in D5% in Water 250 ML IVC SCH (20:34)
[2018-01-27] MEDS ORDERED: Acetaminophen IV 1,000 MG/100 ML INFUS..BTL IVPB ONE (20:58)
[2018-01-27 23:57] LABS: Creatine Kinase 14060 Units/L (30-223)
[2018-01-28] MEDS ORDERED: Albumin 25% 25gram/100mL 25 GM/100 ML IV.SOLN IVPB SCH ×2
[2018-01-28 00:01] LABS: BUN/Creatinine Ratio 22 (6-26); Blood Urea Nitrogen 23 mg/dL (8-23); Calcium 7.2 mg/dL (8.6-10.3); Carbon Dioxide 21 mEq/L (23-29); Chloride 112 mEq/L (98-107); Glucose 134 mg/dL (70-105); Osmolality,Calculated 292 (280-300); Potassium 4.5 mEq/L (3.5-5.1); Sodium 138 mEq/L (136-145); eGFR For African Americans > 60 (> 60); eGFR For Non-African Americans > 60 (> 60)
[2018-01-28] MEDS: Ringers Solution, Lactated 1,000 ML IVC SCH ×3 (00:20→16:20)
[2018-01-28] MEDS: Lacri-Lube 3.5 GM TUBE BOTH EYES SCH ×5 (03:53→21:13)
[2018-01-28 04:46] LABS: VBG Ionized Calcium 1.08 mmol/L (1.15-1.35)
[2018-01-28 04:47] LABS: Hematocrit 18.9 % (37.5-50.1); Hemoglobin 6.2 g/dL (12.9-16.9); Mean Corpuscular HGB Conc 32.8 g/dL (31.6-35.5); Mean Corpuscular Hemoglobin 29.1 pg (28.0-33.3); Mean Corpuscular Volume 88.7 fL (83.0-100.0); Mean Platelet Volume 11.2 fL (9.4-12.4); Nucleated Red Blood Cells 0.1 /100 WBC (0); Red Blood Count 2.13 M/mcL (4.19-5.50); Red Cell Distribution Width 16.8 % (11.5-14.5)
[2018-01-28 04:49] LABS: Basophils % 0.1 %; Immature Granulocytes % 1.1 % (0-4); Lymphocytes # 1.7 K/mcL (0.6-4.6); Monocytes # 2.4 K/mcL (0.0-1.3); Monocytes % 11.5 %; Neutrophils # 16.6 K/mcL (1.6-8.9); Segmented Neutrophils % 79.3 %
[2018-01-28 04:51] LABS: ABG Base Excess -1 mEq/L (-2 to 3); ABG HCO3 23 mEq/L (21-27); ABG Oxygen Saturation 95 % (95-98); ABG PCO2 37 mmHg (35-45); ABG PH 7.41 pH Units (7.32-7.45); ABG PO2 74 mmHg (85-104); ABG TCO2 25 mEq/L (20-26); Blood Gas Modality VC; Blood Gas PEEP 5 cm H2O; Blood Gas Respiration Rate 16; Blood Gas VT 460 cc
[2018-01-28 04:51] LABS: Platelet Count 89 K/mcL (140-400)
[2018-01-28 05:25] LABS: Platelet Estimate Decreased (Normal)
[2018-01-28 05:50] LABS: BUN/Creatinine Ratio 24 (6-26); Blood Urea Nitrogen 22 mg/dL (8-23); Calcium 7.4 mg/dL (8.6-10.3); Carbon Dioxide 24 mEq/L (23-29); Chloride 110 mEq/L (98-107); Creatine Kinase 13707 Units/L (30-223); Glucose 146 mg/dL (70-105); Magnesium 2.3 mg/dL (1.6-2.6); Osmolality,Calculated 290 (280-300); Phosphorous 2.5 mg/dL (2.7-4.5); Potassium 4.3 mEq/L (3.5-5.1); Sodium 137 mEq/L (136-145); eGFR For African Americans > 60 (> 60); eGFR For Non-African Americans > 60 (> 60)
[2018-01-28] MEDS: Heparin 25,000 UNIT/500 ML D5W 25,000 UNIT/500 ML BAG IVC SCH (05:58)
[2018-01-28] MEDS ORDERED: 0.9 % Sodium Chloride 250 ML ONE (06:39)
--- NOTE | 2018-01-28 08:10 | Pulmonology Progress Note ---
Date of Encounter: 01/28/18 Time of Encounter: 08:10 Assessment and Plan (1) Acute respiratory failure with hypoxia Current Visit: Yes Status: Acute The patient is 72 years old and has severe peripheral vascular disease. He is status post a complicated right lower extremity vascular resconruction including femoral and popliteal bypass grafting. The popliteal graft was complicated by acute thrombosis status post thrombectomy yesterday. He is on the ventilator he has acute anemia significant pain and agitation. see below for my assessment and plan based upon systems I examined this patient and my medical decision-making was reviewed with the Resident Physician. I agree with the documented findings, disposition and treatment plan as described except to the extent set forth below. We independently had [id number] contact with the patient Patient seen and examined at bedside Labs, radiology, chart personally reviewed. Management was reviewed during multidisciplinary critical care rounds. GAS MANAGER: Patient remains intubated and sedated with periods of agitation related to pain. Goal Amezquita 3 we will increase sedation for this. Otherwise neurologically intact on today's exam. Pulm: Remains on the ventilator postoperatively spontaneous breathing trial today was cut short because of increased tachycardia and tachypnea possibly related to pain. I reviewed the patient's chest x-ray and with a low-grade fever overnight I am concerned about possibility also developing pneumonia given increase in secretions abdomen suctioning by the nursing staff. Otherwise acceptable gas exchange on today's ventilator settings. We have preemptively started low tidal volume ventilatory strategy as it increased risk for development of ARDS. Cards/Vasc: Patient remains generally hemodynamically stable (occasional episodes of hypertension associated with agitation and pain) without vasopressor requirements. He had a lactic acidosis postoperatively which is resolved. He is postop day 2 status post right lower extremity vascular reconstruction is postop day 1 status post thrombectomy. From the surgical standpoint he appears to be doing very well appreciate vascular surgery managing these aspects FEN-GI: Remains nothing by mouth start enteral nutrition per dietary recommendations. PPI prophylaxis given to prevent stress ulcers Renal: Urine output is increased and nose acceptable range. Serum creatinine remained stable. He had evidence of the rhabdomyolysis likely postoperative which is improving we will continue IV fluids for this. ID: Concern for acute infectious process possibly pneumonia starting broad- spectrum antibiotics with planned to de-escalate. Cultures will be obtained including sputum urine and blood cultures. Heme/Onc: The patient is on a heparin infusion. He has developed some mild anemia which is acute on chronic and is being transfused blood products. Goal transfusion his hemoglobin of 7. Endo: Glucose Monitored and stable Integ/MSK: Skin Care per routine ICU Nursing Protocol to prevent ulcers. 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 He has developed significant anemia overnight and is being transfused blood products. He remains on heparin infusion at the request of the vascular surgeon. He has had a low grade temperature overnight as well. Thoughts of agitation which appear to be punctuated in large part by pain has been better controlled with increasing infusion of fentanyl. He has not required vasopressor Objective PUL Vital signs: Last Vital Signs Temp 98.5 F 01/28/18 07:43 Pulse 114 01/28/18 07:00 Resp 20 01/28/18 07:00 BP 121/45 01/28/18 07:00 Pulse Ox 93 01/28/18 07:00 General appearance: appears uncomfortable Eyes: nonicteric ENT: other (Endotracheal tube in satisfactory position) Effort: normal Auscultation: bilateral: clear Cardiovascular: regular rate and rhythm Gastrointestinal: soft, non-tender Extremities: other (Patient has postsurgical scar with dressing in the right groin which is clean dry and intact. There is distal pulse which is dopplerable in the lower extremities. Is otherwise warm. The leg itself is taught in both the calf and thigh but actually pressure appears to be improved from yesterday. The left leg has not changed significantly in last 48 hours is still warm with dopplerable pulses) Musculoskeletal: no deformities pupils equal and round, other (The patient is uncomfortable appearing on the vent at times but he was able to squeeze my hands to command in both extremity and able to move the lower extremities) anxious Ventilator Settings Ventilator Settings: Ventilator Settings, Last 8 Hours Ventilator Mode A/C Ventilator Mode A/C Ventilator Mode A/C Ventilator Mode A/C Ventilator Mode A/C Ventilator Mode A/C Ventilator Mode A/C Ventilator Tidal Volume 460 Setting Ventilator Tidal Volume 460 Setting Ventilator Tidal Volume 460 Setting Ventilator Tidal Volume 460 Setting Ventilator Tidal Volume 460 Setting Ventilator Tidal Volume 460 Setting Ventilator Tidal Volume 460 Setting Ventilator Tidal Volume 460 Setting Ventilator Tidal Volume 460 Setting Ventilator Respiratory Rate 16 Setting Ventilator Respiratory Rate 16 Setting Ventilator Respiratory Rate 16 Setting Ventilator Respiratory Rate 16 Setting Ventilator Respiratory Rate 16 Setting Ventilator Respiratory Rate 16 Setting Ventilator Respiratory Rate 16 Setting Ventilator Respiratory Rate 16 Setting Ventilator Respiratory Rate 16 Setting Actual Respiratory Rate 22 Actual Respiratory Rate 21 Actual Respiratory Rate 20 Actual Respiratory Rate 22 Actual Respiratory Rate 22 Actual Respiratory Rate 19 Actual Respiratory Rate 19 Actual Respiratory Rate 22 Positive End Expiratory 5 Pressure Positive End Expiratory 5 Pressure Positive End Expiratory 5 Pressure Positive End Expiratory 5 Pressure Positive End Expiratory 5 Pressure Positive End Expiratory 5 Pressure Positive End Expiratory 5 Pressure Positive End Expiratory 5 Pressure Positive End Expiratory 5 Pressure Peak Inspiratory Airway 5.1 Pressure Peak Inspiratory Airway 16 Pressure Peak Inspiratory Airway 8.0 Pressure Peak Inspiratory Airway 7.7 Pressure Peak Inspiratory Airway 5.1 Pressure Peak Inspiratory Airway 5.1 Pressure Peak Inspiratory Airway 7.9 Pressure Peak Inspiratory Airway 5.2 Pressure Results - Laboratory Findings CBC and BMP: 01/28/18 04:20 01/28/18 04:20 ABG ABG pH 7.41 pH Units (7.32-7.45) 01/28/18 04:47 ABG pCO2 37 mmHg (35-45) 01/28/18 04:47 ABG pO2 74 mmHg (85-104) L 01/28/18 04:47 ABG O2 Saturation 95 % (95-98) 01/28/18 04:47 PT/INR, D-dimer PT 12.8 Seconds (9.4-12.1) H 01/27/18 08:28 Abnormal lab findings: Abnormal lab results WBC 20.9 K/mcL (4.3-11.1) H 01/28/18 04:20 RBC 2.13 M/mcL (4.19-5.50) L 01/28/18 04:20 Hgb 6.2 g/dL (12.9-16.9) L 01/28/18 04:20 Hct 18.9 % (37.5-50.1) L 01/28/18 04:20 RDW 16.8 % (11.5-14.5) H 01/28/18 04:20 Plt Count 89 K/mcL (140-400) L 01/28/18 04:20 Neutrophils # 16.6 K/mcL (1.6-8.9) H 01/28/18 04:20 Monocytes # 2.4 K/mcL (0.0-1.3) H 01/28/18 04:20 Nucleated RBCs/100 WBC 0.1 /100 WBC (0) H 01/28/18 04:20 Platelet Estimate Decreased (Normal) L 01/28/18 04:20 PT 12.8 Seconds (9.4-12.1) H 01/27/18 08:28 APTT 82.4 Seconds (26.0-36.0) H 01/28/18 04:20 ABG pO2 74 mmHg (85-104) L 01/28/18 04:47 ABG Hematocrit 25.0 % (37.5-50.1) L 01/26/18 15:16 ABG Chloride 110 mEq/L (98-107) H 01/26/18 15:16 Glucose 161 mg/dL (60-95) H 01/26/18 15:16 Chloride 110 mEq/L (98-107) H 01/28/18 04:20 Glucose 146 mg/dL (70-105) H 01/28/18 04:20 POC Glucose 132 mg/dL (70-99) H 01/27/18 23:57 Hemoglobin A1c 6.1 % (-5.6) H 01/27/18 06:05 Lactic Acid 2.9 mmol/L (0.5-2.2) H 01/27/18 16:45 Calcium 7.4 mg/dL (8.6-10.3) L 01/28/18 04:20 Venous Ioniz Calcium 1.08 mmol/L (1.15-1.35) L 01/28/18 04:43 Phosphorus 2.5 mg/dL (2.7-4.5) L 01/28/18 04:20 Creatine Kinase 81756 Units/L (30-223) H 01/28/18 04:20 Arterial Blood Ionized Calcium 1.14 mmol/L (1.15-1.35) L 01/26/18 15:16 - Clinical Findings Intake & Output: Intake & Output 01/27/18 01/28/18 01/28/18 23:59 07:59 15:59 Intake Total 576 / 576 1596 / 1596 Output Total 500 / 500 775 / 775 Balance 76 / 821 / 821 Weight 106.6 kg - VTE Documentation of Mechanical Device: Intermittent pneumatic compression device Consult Discharge Plan - Plan Referrals: TYREE,PCP [Primary Care Provider] - 02/04/18 12:45 pm Jae Foster MD [Partnered Physician] - 02/17/18 9:45 am ()
--- NOTE | 2018-01-28 08:21 | Vascular/[facility] Progress Note ---
Date of Encounter: 01/28/18 Time of Encounter: 08:19 - Assessment and plan (1) PAD (peripheral artery disease) Current Visit: No Status: Chronic Patent right lower extremity vascular reconstruction. Patient is postoperative day 1 from reconstruction. He is postoperative day #2 from thrombectomy of right lower extremity bypass graft.. appears to have excellent perfusion to right lower extremity. There are no findings of compartment syndrome in the right lower extremity. Patient continues on heparin drip to assist in right lower extremity graft patency. (2) Post-op bleeding Current Visit: Yes Status: Acute Patient has postop anemia. Transfusion therapy has been initiated. Qualifiers: Surgical complication system/body Area: circulatory system Procedure type: circulatory, unspecified Qualified Code(s): I97.618 - Postprocedural hemorrhage of a circulatory system organ or structure following other circulatory system procedure (3) Lactic acidosis Current Visit: Yes Status: Acute Lactic acidosis is improving with stable hemodynamics. Will attempt weaning from ventilator later today. - Subjective Interval history: Patient is intubated and on the ventilator in ICU #7. Patient had an uneventful night. He was noted to have significant anemia and transfusion therapy has been initiated. The patient has been hemodynamically stable. Vital Signs, Last 4 Hours Temp Pulse Resp BP Pulse Ox 01/28/18 07:43 98.5 F 01/28/18 07:00 98.8 F 114 20 121/45 93 01/28/18 06:45 98.8 F 116 128/49 92 01/28/18 06:00 112 22 127/49 97 01/28/18 05:42 21 125/47 96 01/28/18 05:00 95 20 125/46 96 - Physical Examination General: Present: Other (Patient on ventilator and sedated) HEENT: Present: Atraumatic Cardiac: Present: Reg Rate and Rhythm, Other (Sinus tachycardia) Lungs: Present: Decreased breath sounds Neuro: Present: Other (Patient sedated on ventilator) Vascular: Present: Color/Temperature (Right foot is warm and pink. He has mild to moderate edema.), Surgical incisions (Dressings over her right lower extremity surgical incisions are clean and dry.), Other (Patient has Doppler signals 3 at the right ankle.) Abdomen: Present: Soft, Other (Mild distention) Skin: Present: No rashes noted on visualized skin - VTE Documentation of Mechanical Device: Intermittent pneumatic compression device Results 01/28/18 04:20 01/28/18 04:20 Lab Results, Last 24 hours 01/27/18 01/27/18 01/27/18 08:28 08:28 14:02 WBC 15.9 H Hgb 7.1 L Hct 22.4 L Plt Count 80 L INR 1.2 APTT 27.7 Sodium 138 Potassium 4.8 Chloride 113 H Carbon Dioxide 20 L BUN 22 Creatinine 0.97 Glucose 158 H Calcium 7.4 L Magnesium 01/27/18 01/27/18 01/27/18 16:00 16:45 21:00 WBC 23.9 H D Hgb 7.3 L Hct 21.6 L Plt Count 84 L INR APTT 81.4 H D Sodium 138 Potassium 4.5 Chloride 112 H Carbon Dioxide 21 L BUN 23 Creatinine 1.05 Glucose 134 H Calcium 7.2 L Magnesium 01/27/18 01/28/18 01/28/18 22:00 04:20 04:20 WBC 20.9 H Hgb 6.2 L Hct 18.9 L Plt Count 89 L INR APTT 82.6 H 82.4 H Sodium Potassium Chloride Carbon Dioxide BUN Creatinine Glucose Calcium Magnesium 01/28/18 04:20 WBC Hgb Hct Plt Count INR APTT Sodium 137 Potassium 4.3 Chloride 110 H Carbon Dioxide 24 BUN 22 Creatinine 0.93 Glucose 146 H Calcium 7.4 L Magnesium 2.3 Consult Discharge Plan - Plan Referrals: TYREE,PCP [Primary Care Provider] - 02/04/18 12:45 pm Jae Foster MD [Partnered Physician] - 02/17/18 9:45 am ()
[2018-01-28] MEDS: Chlorhexidine Rinse 15 ML MOUTHWASH MM SCH ×2 (08:39→21:14)
[2018-01-28] MEDS: Pantoprazole 40 MG VIAL IVP SCH (08:39)
[2018-01-28] MEDS: FentaNYL (PF) 1,000 MCG in 0.9 % Sodium Chloride 80 ML IVC SCH ×3 (09:56→23:32)
[2018-01-28] MEDS ORDERED: Cefepime HCl 2,000 MG in Water for inj. (sterile) 20 ML 20 ML IVP SCH (11:00)
[2018-01-28] MEDS: Insulin LISPRO 300 UNITS/3 ML VIAL SQ SCH ×2 (12:44→17:37)
[2018-01-28] MEDS: Piperacillin/Tazobactam 3.375 GM in 0.9 % Sodium Chloride Mini Bag 100 ML IVPB SCH ×2 (12:58→18:12)
[2018-01-28] MEDS: Dexmedetomidine HCl 400 MCG/100 ML MLS IVC SCH ×2 (15:27→22:04)
[2018-01-28] MEDS: Phenylephrine 10 MG in D5% in Water 250 ML IVC SCH (16:34)
[2018-01-28 16:37] LABS: Hematocrit 23.4 % (37.5-50.1); Mean Corpuscular HGB Conc 34.2 g/dL (31.6-35.5); Mean Corpuscular Hemoglobin 29.6 pg (28.0-33.3); Mean Corpuscular Volume 86.7 fL (83.0-100.0); Mean Platelet Volume 10.8 fL (9.4-12.4); Red Cell Distribution Width 15.8 % (11.5-14.5)
[2018-01-28 16:38] LABS: Platelet Count 86 K/mcL (140-400)
[2018-01-28 17:19] LABS: Albumin 2.5 g/dL (3.5-5.7); BUN/Creatinine Ratio 22 (6-26); Blood Urea Nitrogen 17 mg/dL (8-23); Calcium 7.3 mg/dL (8.6-10.3); Carbon Dioxide 24 mEq/L (23-29); Chloride 112 mEq/L (98-107); Creatine Kinase 13141 Units/L (30-223); Glucose 110 mg/dL (70-105); Osmolality,Calculated 290 (280-300); Phosphorous 2.7 mg/dL (2.7-4.5); Potassium 4.1 mEq/L (3.5-5.1); Sodium 139 mEq/L (136-145); eGFR For African Americans > 60 (> 60); eGFR For Non-African Americans > 60 (> 60)
[2018-01-28 20:59] LABS: Hematocrit 23.9 % (37.5-50.1)
[2018-01-28 21:17] LABS: BUN/Creatinine Ratio 22 (6-26); Blood Urea Nitrogen 17 mg/dL (8-23); Calcium 7.3 mg/dL (8.6-10.3); Carbon Dioxide 24 mEq/L (23-29); Chloride 111 mEq/L (98-107); Glucose 104 mg/dL (70-105); Osmolality,Calculated 294 (280-300); Potassium 4.1 mEq/L (3.5-5.1); Sodium 141 mEq/L (136-145); eGFR For African Americans > 60 (> 60); eGFR For Non-African Americans > 60 (> 60)
[2018-01-29] MEDS: Piperacillin/Tazobactam 3.375 GM in 0.9 % Sodium Chloride Mini Bag 100 ML IVPB SCH ×3 (02:26→18:37)
[2018-01-29] MEDS: Heparin 25,000 UNIT/500 ML D5W 25,000 UNIT/500 ML BAG IVC SCH ×2 (04:15→22:45)
[2018-01-29] MEDS: Lacri-Lube 3.5 GM TUBE BOTH EYES SCH ×4 (04:16→11:01)
[2018-01-29 04:47] LABS: ABG Base Excess 0 mEq/L (-2 to 3); ABG HCO3 23 mEq/L (21-27); ABG Oxygen Saturation 92 % (95-98); ABG PCO2 32 mmHg (35-45); ABG PH 7.47 pH Units (7.32-7.45); ABG PO2 58 mmHg (85-104); ABG TCO2 24 mEq/L (20-26); Blood Gas Modality PRVC; Blood Gas PEEP 5 cm H2O; Blood Gas Respiration Rate 16; Blood Gas VT 460 cc
[2018-01-29 05:15] LABS: Eosinophils % 0.3 %; Hemoglobin 8.1 g/dL (12.9-16.9); Mean Platelet Volume 10.9 fL (9.4-12.4); Nucleated Red Blood Cells 0.4 /100 WBC (0)
[2018-01-29 05:17] LABS: Basophils % 0.2 %; Eosinophils # 0.1 K/mcL (0.0-0.6); Hematocrit 24.3 % (37.5-50.1); Immature Granulocytes % 2.3 % (0-4); Immature Platelets 5.9 % (1.1-6.1); Lymphocytes # 2.4 K/mcL (0.6-4.6); Lymphocytes % 12.3 %; Mean Corpuscular HGB Conc 33.3 g/dL (31.6-35.5); Mean Corpuscular Hemoglobin 29.5 pg (28.0-33.3); Mean Corpuscular Volume 88.4 fL (83.0-100.0); Monocytes # 2.1 K/mcL (0.0-1.3); Monocytes % 10.5 %; Neutrophils # 14.7 K/mcL (1.6-8.9); Platelet Count 102 K/mcL (140-400); Red Blood Count 2.75 M/mcL (4.19-5.50); Segmented Neutrophils % 74.4 %
[2018-01-29 05:53] LABS: BUN/Creatinine Ratio 21 (6-26); Blood Urea Nitrogen 17 mg/dL (8-23); Calcium 7.4 mg/dL (8.6-10.3); Carbon Dioxide 25 mEq/L (23-29); Chloride 109 mEq/L (98-107); Creatine Kinase 11437 Units/L (30-223); Glucose 109 mg/dL (70-105); Magnesium 2.2 mg/dL (1.6-2.6); Osmolality,Calculated 292 (280-300); Potassium 4.3 mEq/L (3.5-5.1); Sodium 140 mEq/L (136-145); eGFR For African Americans > 60 (> 60); eGFR For Non-African Americans > 60 (> 60)
[2018-01-29] MEDS ORDERED: Furosemide 40 MG/4 ML VIAL IVP ONE (06:44)
--- NOTE | 2018-01-29 07:20 | Pulmonology Progress Note ---
Date of Encounter: 01/29/18 Time of Encounter: 07:20 Assessment and Plan (1) Acute respiratory failure with hypoxia Current Visit: Yes Status: Acute The patient is 72 years old and has severe peripheral vascular disease. He is status post a complicated right lower extremity vascular resconruction including femoral and popliteal bypass grafting. The popliteal graft was complicated by acute thrombosis status post thrombectomy. He is on the ventilator he has acute anemia requiring blood transfusion which is corrected his also had significant pain and agitation which is improving. see below for my assessment and plan based upon systems Management was reviewed during multidisciplinary critical care rounds. CHARTER COORDINATOR: Patient remains intubated and sedated plan to decrease sedation today for planned extubation Pulm: Remains on the ventilator postoperatively spontaneous breathing trial today has been successful we will plan for liberation from the vent after obtaining weaning parameters. I have given a dose of diuretic to help improve respiratory mechanics given underlying hydrostatic pulmonary edema Cards/Vasc: Patient remains generally hemodynamically stable (occasional episodes of hypertension associated with agitation and pain) without vasopressor requirements. He is postop day 3 status post right lower extremity vascular reconstruction is postop day 1 status post thrombectomy. From the surgical standpoint he appears to be doing very well appreciate vascular surgery managing these aspects. We will continue to optimize blood pressure control post liberation from the vent FEN-GI: NG tube was unsuccessfully placed yesterday so we have held off on nutrition but likely with extubation today we can advance his diet after speech and swallow evaluation PPI prophylaxis given to prevent stress ulcers Renal: Urine output is increased and nose acceptable range. Serum creatinine remained stable. He had evidence of the rhabdomyolysis which is improving ID: Concern for acute infectious process and Zosyn has been started to decrease in the patient's white count no fever overnight we will continue to monitor blood cultures and de-escalate Heme/Onc: The patient is on a heparin infusion. He has developed some mild anemia which is stable after transfusion Endo: Glucose Monitored and stable Integ/MSK: Skin Care per routine ICU Nursing Protocol to prevent ulcers. 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 He has had much less agitation/pain appears much more comfortable. Remains neurovascularly intact in the lower extremities per documented nursing report. Family at bedside Objective PUL Vital signs: Last Vital Signs Temp 99.1 F 01/29/18 04:00 Pulse 82 01/29/18 07:00 Resp 25 01/29/18 07:00 BP 111/62 01/29/18 07:00 Pulse Ox 99 01/29/18 07:00 General appearance: no acute distress, lethargic (Would easily arousable) Eyes: nonicteric ENT: oropharynx moist Effort: normal Auscultation: bilateral: rales (In lung bases) Cardiovascular: regular rate and rhythm Gastrointestinal: normoactive bowel sounds, soft, non-tender Extremities: other (Patient has healing postsurgical changes in the right groin and right popliteal region dressings are clean dry and intact distal extremities are warm and appear well perfused right leg is generally more taut than the left with the increased edema. Pulses are dopplerable bilaterally) non-focal exam, pupils equal and round Ventilator Settings Ventilator Settings: Ventilator Settings, Last 8 Hours Ventilator Mode CPAP Ventilator Mode A/C Ventilator Mode VC+ Ventilator Mode A/C Ventilator Mode A/C Ventilator Tidal Volume 460 Setting Ventilator Tidal Volume 460 Setting Ventilator Tidal Volume 460 Setting Ventilator Tidal Volume 460 Setting Ventilator Tidal Volume 460 Setting Ventilator Tidal Volume 460 Setting Ventilator Tidal Volume 460 Setting Ventilator Respiratory Rate 22 Setting Ventilator Respiratory Rate 16 Setting Ventilator Respiratory Rate 16 Setting Ventilator Respiratory Rate 16 Setting Ventilator Respiratory Rate 16 Setting Ventilator Respiratory Rate 16 Setting Ventilator Respiratory Rate 16 Setting Ventilator Respiratory Rate 16 Setting Actual Respiratory Rate 24 Actual Respiratory Rate 19 Actual Respiratory Rate 19 Actual Respiratory Rate 18 Positive End Expiratory 5 Pressure Positive End Expiratory 5 Pressure Positive End Expiratory 5 Pressure Positive End Expiratory 5 Pressure Positive End Expiratory 5 Pressure Positive End Expiratory 5 Pressure Positive End Expiratory 5 Pressure Positive End Expiratory 5 Pressure Positive End Expiratory 5 Pressure Peak Inspiratory Airway 11 Pressure Peak Inspiratory Airway 6 Pressure Peak Inspiratory Airway 6 Pressure Peak Inspiratory Airway 18 Pressure Peak Inspiratory Airway 7 Pressure Peak Inspiratory Airway 10 Pressure Peak Inspiratory Airway 9 Pressure Peak Inspiratory Airway 17 Pressure Results - Laboratory Findings CBC and BMP: 01/29/18 04:40 01/29/18 04:40 ABG ABG pH 7.47 pH Units (7.32-7.45) H 01/29/18 04:43 ABG pCO2 32 mmHg (35-45) L 01/29/18 04:43 ABG pO2 58 mmHg (85-104) L 01/29/18 04:43 ABG O2 Saturation 92 % (95-98) L 01/29/18 04:43 PT/INR, D-dimer PT 12.8 Seconds (9.4-12.1) H 01/27/18 08:28 Abnormal lab findings: Abnormal lab results WBC 19.7 K/mcL (4.3-11.1) H 01/29/18 04:40 RBC 2.75 M/mcL (4.19-5.50) L 01/29/18 04:40 Hgb 8.1 g/dL (12.9-16.9) L 01/29/18 04:40 Hct 24.3 % (37.5-50.1) L 01/29/18 04:40 RDW 16.0 % (11.5-14.5) H 01/29/18 04:40 Plt Count 102 K/mcL (140-400) L 01/29/18 04:40 Neutrophils # 14.7 K/mcL (1.6-8.9) H 01/29/18 04:40 Monocytes # 2.1 K/mcL (0.0-1.3) H 01/29/18 04:40 Nucleated RBCs/100 WBC 0.4 /100 WBC (0) H 01/29/18 04:40 Platelet Estimate Decreased (Normal) L 01/28/18 04:20 PT 12.8 Seconds (9.4-12.1) H 01/27/18 08:28 APTT 55.9 Seconds (26.0-36.0) H 01/29/18 04:00 ABG pH 7.47 pH Units (7.32-7.45) H 01/29/18 04:43 ABG pCO2 32 mmHg (35-45) L 01/29/18 04:43 ABG pO2 58 mmHg (85-104) L 01/29/18 04:43 ABG O2 Saturation 92 % (95-98) L 01/29/18 04:43 ABG Hematocrit 25.0 % (37.5-50.1) L 01/26/18 15:16 ABG Chloride 110 mEq/L (98-107) H 01/26/18 15:16 Glucose 161 mg/dL (60-95) H 01/26/18 15:16 Chloride 109 mEq/L (98-107) H 01/29/18 04:40 Glucose 109 mg/dL (70-105) H 01/29/18 04:40 Hemoglobin A1c 6.1 % (-5.6) H 01/27/18 06:05 Calcium 7.4 mg/dL (8.6-10.3) L 01/29/18 04:40 Venous Ioniz Calcium 1.08 mmol/L (1.15-1.35) L 01/28/18 04:43 Creatine Kinase 64238 Units/L (30-223) H 01/29/18 04:40 Albumin 2.5 g/dL (3.5-5.7) L 01/28/18 16:09 Arterial Blood Ionized Calcium 1.14 mmol/L (1.15-1.35) L 01/26/18 15:16 - Microbiology Findings Microbiology Findings: Microbiology, Last 48 Hours 01/28/18 12:46 Sputum Culture - Final Sputum - Clinical Findings Intake & Output: Intake & Output 01/28/18 01/28/18 01/29/18 15:59 23:59 07:59 Intake Total 1654 / 1654 2297 / 2297 421 / 421 Output Total 450 / 450 450 / 450 500 / 500 Balance 1204 / 1204 1847 / 1847 -79 / -79 - VTE Documentation of Mechanical Device: Intermittent pneumatic compression device Consult Discharge Plan - Plan Referrals: TYREE,PCP [Primary Care Provider] - 02/04/18 12:45 pm Jae Foster MD [Partnered Physician] - 02/17/18 9:45 am ()
[2018-01-29] MEDS: Ringers Solution, Lactated 1,000 ML IVC SCH ×2 (07:35→10:54)
[2018-01-29] MEDS: Insulin LISPRO 300 UNITS/3 ML VIAL SQ SCH ×3 (07:35→15:39)
[2018-01-29] MEDS: Chlorhexidine Rinse 15 ML MOUTHWASH MM SCH (08:30)
[2018-01-29] MEDS: Pantoprazole 40 MG VIAL IVP SCH (08:31)
[2018-01-29] MEDS: Dexmedetomidine HCl 400 MCG/100 ML MLS IVC SCH (10:00)
[2018-01-29] MEDS: FentaNYL (PF) 1,000 MCG in 0.9 % Sodium Chloride 80 ML IVC SCH (10:05)
[2018-01-29] MEDS ORDERED: *HR* Labetalol 20 MG/4 ML SYRINGE IVP ONE (12:49)
[2018-01-29] MEDS ORDERED: *HR* Metoprolol 5 MG/5 ML VIAL IVP ONE ×2 (12:51)
[2018-01-29] MEDS ORDERED: *HR* Labetalol 100 MG/20 ML MDV IVP PRN (14:38)
[2018-01-29] MEDS: Phenylephrine 10 MG in D5% in Water 250 ML IVC SCH (15:27)
[2018-01-29] MEDS ORDERED: *HR* Labetalol 20 MG/4 ML SYRINGE IVP PRN (15:29)
[2018-01-29 15:51] LABS: Hematocrit 24.1 % (37.5-50.1); Hemoglobin 8.2 g/dL (12.9-16.9)
--- NOTE | 2018-01-29 16:01 | Vascular/[facility] Progress Note ---
Date of Encounter: 01/29/18 Time of Encounter: 13:00 - Assessment and plan (1) PAD (peripheral artery disease) Current Visit: No Status: Chronic Patent right lower extremity revascularization. Excellent Doppler signals and normal perfusion to right foot. Surgical incisions are intact. No signs of hematoma. (2) Post-op bleeding Current Visit: Yes Status: Acute Patient has postop anemia. Transfusion therapy has been initiated. Patient's hemoglobin is stable. Qualifiers: Surgical complication system/body Area: circulatory system Procedure type: circulatory, unspecified Qualified Code(s): I97.618 - Postprocedural hemorrhage of a circulatory system organ or structure following other circulatory system procedure (3) Lactic acidosis Current Visit: Yes Status: Acute Lactic acidosis is improving with stable hemodynamics. Patient extubated earlier today. - Subjective Interval history: The patient has been extubated earlier today. He remains in the intensive care unit. There are no family members at the bedside. The patient is moaning and acts as if in pain but cannot describe or identify the location or type of pain. He is clearly confused and mildly encephalopathic. Vital Signs, Last 4 Hours Temp Pulse Resp BP Pulse Ox 01/29/18 15:57 100.8 F H 01/29/18 13:00 89 20 130/53 92 01/29/18 12:00 112 16 128/52 93 - Physical Examination HEENT: Present: Atraumatic, Normocephaly Neck: Absent: JVD Cardiac: Present: Other (Tachycardic) Lungs: Present: Normal Breath Sounds Neuro: Present: Other (Disturb sensorium where patient responds to name but is not speaking intelligently and does not appropriately answer questions. The patient is moaning and seems unfocused. Does not focus with his gaze or achieve eye contact.) Vascular: Present: Normal capillary refill, Edema, Color/Temperature (Right foot remains warm and pink. The patient has excellent triphasic Doppler signals at the right foot and ankle.), Surgical incisions (Surgical incisions were inspected. They are clean and dry.). Absent: Cyanosis Abdomen: Present: Soft, Other (Obese patient has bowel sounds) Skin: Present: No rashes noted on visualized skin - VTE Documentation of Mechanical Device: Intermittent pneumatic compression device Results 01/29/18 15:35 01/29/18 04:40 Lab Results, Last 24 hours 05/01/28/18 01/28/18 16:09 16:09 20:40 WBC 20.5 H Hgb 8.0 L D Hct 23.4 L Plt Count 86 L APTT Sodium 139 141 Potassium 4.1 4.1 Chloride 112 H 111 H Carbon Dioxide 24 24 BUN 17 17 Creatinine 0.78 0.76 Glucose 110 H 104 Calcium 7.3 L 7.3 L Magnesium 01/28/18 01/29/18 01/29/18 20:40 04:00 04:40 WBC 19.7 H Hgb 8.0 L 8.1 L Hct 23.9 L 24.3 L Plt Count 102 L APTT 55.9 H Sodium Potassium Chloride Carbon Dioxide BUN Creatinine Glucose Calcium Magnesium 01/29/18 01/29/18 01/29/18 04:40 11:08 15:35 WBC Hgb 8.2 L Hct 24.1 L Plt Count APTT 49.8 H Sodium 140 Potassium 4.3 Chloride 109 H Carbon Dioxide 25 BUN 17 Creatinine 0.80 Glucose 109 H Calcium 7.4 L Magnesium 2.2 Consult Discharge Plan - Plan Referrals: TYREE,PCP [Primary Care Provider] - 02/04/18 12:45 pm Jae Foster MD [Partnered Physician] - 02/17/18 9:45 am ()
[2018-01-29 16:55] LABS: BUN/Creatinine Ratio 21 (6-26); Blood Urea Nitrogen 18 mg/dL (8-23); Calcium 7.6 mg/dL (8.6-10.3); Carbon Dioxide 24 mEq/L (23-29); Chloride 107 mEq/L (98-107); Creatine Kinase 10941 Units/L (30-223); Glucose 116 mg/dL (70-105); Magnesium 1.9 mg/dL (1.6-2.6); Osmolality,Calculated 289 (280-300); Potassium 3.5 mEq/L (3.5-5.1); Sodium 138 mEq/L (136-145); eGFR For African Americans > 60 (> 60); eGFR For Non-African Americans > 60 (> 60)
[2018-01-30] MEDS: FentaNYL (PF) 1,000 MCG in 0.9 % Sodium Chloride 80 ML IVC SCH (02:00)
[2018-01-30] MEDS: Dexmedetomidine HCl 400 MCG/100 ML MLS IVC SCH ×3 (02:00→21:28)
[2018-01-30] MEDS: Piperacillin/Tazobactam 3.375 GM in 0.9 % Sodium Chloride Mini Bag 100 ML IVPB SCH ×3 (04:12→18:32)
[2018-01-30 04:18] LABS: Basophils % 0.1 %; Eosinophils # 0.1 K/mcL (0.0-0.6); Eosinophils % 0.7 %; Hematocrit 23.8 % (37.5-50.1); Immature Granulocytes % 2.6 % (0-4); Lymphocytes # 2.2 K/mcL (0.6-4.6); Lymphocytes % 12.6 %; Mean Corpuscular HGB Conc 33.6 g/dL (31.6-35.5); Mean Corpuscular Hemoglobin 29.7 pg (28.0-33.3); Mean Corpuscular Volume 88.5 fL (83.0-100.0); Mean Platelet Volume 10.9 fL (9.4-12.4); Monocytes # 1.8 K/mcL (0.0-1.3); Monocytes % 10.4 %; Nucleated Red Blood Cells 0.5 /100 WBC (0); Platelet Count 109 K/mcL (140-400); Red Blood Count 2.69 M/mcL (4.19-5.50); Red Cell Distribution Width 16.1 % (11.5-14.5); Segmented Neutrophils % 73.6 %
[2018-01-30 04:24] LABS: VBG Ionized Calcium 1.08 mmol/L (1.15-1.35); VBG PH 7.37 pH Units (7.32-7.42)
[2018-01-30 05:04] LABS: BUN/Creatinine Ratio 21 (6-26); Blood Urea Nitrogen 18 mg/dL (8-23); Calcium 7.7 mg/dL (8.6-10.3); Carbon Dioxide 23 mEq/L (23-29); Chloride 107 mEq/L (98-107); Creatine Kinase 9020 Units/L (30-223); Glucose 110 mg/dL (70-105); Magnesium 2.1 mg/dL (1.6-2.6); Osmolality,Calculated 289 (280-300); Potassium 3.7 mEq/L (3.5-5.1); Sodium 138 mEq/L (136-145); eGFR For African Americans > 60 (> 60); eGFR For Non-African Americans > 60 (> 60)
[2018-01-30] MEDS ORDERED: Furosemide 20 MG/2 ML VIAL IVP ONE (06:45)
--- NOTE | 2018-01-30 06:47 | Pulmonology Progress Note ---
Date of Encounter: 01/30/18 Time of Encounter: 06:47 Assessment and Plan (1) Acute respiratory failure with hypoxia Current Visit: Yes Status: Acute The patient is 72 years old and has severe peripheral vascular disease. He is status post a complicated right lower extremity vascular resconruction including femoral and popliteal bypass grafting. The popliteal graft was complicated by acute thrombosis status post thrombectomy. He is on the ventilator he has acute anemia requiring blood transfusion which is corrected his also had significant pain and agitation which is improving. see below for my assessment and plan based upon systems Management was reviewed during multidisciplinary critical care rounds. VOLLEYBALL ASSISTANT COACH: Patient clearly is delirious this is secondary to medication effect and critical illness. We will continue to focus on avoidance of sensory deprivation sleep-wake cycle christianity and avoidance of VOLLEYBALL ASSISTANT COACH depressants of visits we are able to Pulm: Tolerating nasal cannula oxygen support diuresis as tolerated continue bronchodilator support for history of COPD Cards/Vasc: Patient remains generally hemodynamically stable (occasional episodes of hypertension associated with agitation and pain) without vasopressor requirements. He is postop day 4 status post right lower extremity vascular reconstruction is postop day 2 status post thrombectomy. From the surgical standpoint he appears to be doing very well appreciate vascular surgery managing these aspects. We will continue to optimize blood pressure control post liberation from the vent FEN-GI; formal speech and swallow evaluation when the patient is more awake Renal: Urine output is increased and nose acceptable range. Serum creatinine remained stable. He had evidence of the rhabdomyolysis which is improving ID: Concern for acute infectious process and Zosyn remains afebrile and white count is trending down cultures remain negative Heme/Onc: The patient is on a heparin infusion. He has developed some mild anemia which is stable after transfusion Endo: Glucose Monitored and stable Integ/MSK: Skin Care per routine ICU Nursing Protocol to prevent ulcers. 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 Remains very confused. Had a brisk diuresis secondary to administration of diuretic. Remains neurovascularly intact in lower extremities per documented nursing sheet. He says today that he "feels sick" although he could not clarify further. Objective PUL Vital signs: Last Vital Signs Temp 97.7 F 01/30/18 04:00 Pulse 72 01/30/18 06:00 Resp 21 01/30/18 06:00 BP 109/48 01/30/18 06:00 Pulse Ox 100 01/30/18 06:00 General appearance: lethargic (But arousable) Eyes: nonicteric ENT: oropharynx moist Neck: supple, other (Right IJ CVC without evidence of infection) Effort: normal Auscultation: bilateral: rales (In the lung bases) Cardiovascular: regular rate and rhythm Gastrointestinal: normoactive bowel sounds Extremities: edema, other (Dopplerable pulses bilateral lower extremities swelling of the right leg greater than left but this is improving both extremities feel warm to the touch there is no evidence of distal cyanosis) non-focal exam, pupils equal and round Results - Laboratory Findings CBC and BMP: 01/30/18 04:05 01/30/18 04:05 ABG ABG pH 7.47 pH Units (7.32-7.45) H 01/29/18 04:43 ABG pCO2 32 mmHg (35-45) L 01/29/18 04:43 ABG pO2 58 mmHg (85-104) L 01/29/18 04:43 ABG O2 Saturation 92 % (95-98) L 01/29/18 04:43 PT/INR, D-dimer PT 12.8 Seconds (9.4-12.1) H 01/27/18 08:28 Abnormal lab findings: Abnormal lab results WBC 17.6 K/mcL (4.3-11.1) H 01/30/18 04:05 RBC 2.69 M/mcL (4.19-5.50) L 01/30/18 04:05 Hgb 8.0 g/dL (12.9-16.9) L 01/30/18 04:05 Hct 23.8 % (37.5-50.1) L 01/30/18 04:05 RDW 16.1 % (11.5-14.5) H 01/30/18 04:05 Plt Count 109 K/mcL (140-400) L 01/30/18 04:05 Neutrophils # 13.0 K/mcL (1.6-8.9) H 01/30/18 04:05 Monocytes # 1.8 K/mcL (0.0-1.3) H 01/30/18 04:05 Nucleated RBCs/100 WBC 0.5 /100 WBC (0) H 01/30/18 04:05 Platelet Estimate Decreased (Normal) L 01/28/18 04:20 PT 12.8 Seconds (9.4-12.1) H 01/27/18 08:28 APTT 60.9 Seconds (26.0-36.0) H 01/29/18 19:00 ABG pH 7.47 pH Units (7.32-7.45) H 01/29/18 04:43 ABG pCO2 32 mmHg (35-45) L 01/29/18 04:43 ABG pO2 58 mmHg (85-104) L 01/29/18 04:43 ABG O2 Saturation 92 % (95-98) L 01/29/18 04:43 ABG Hematocrit 25.0 % (37.5-50.1) L 01/26/18 15:16 ABG Chloride 110 mEq/L (98-107) H 01/26/18 15:16 Glucose 161 mg/dL (60-95) H 01/26/18 15:16 Glucose 110 mg/dL (70-105) H 01/30/18 04:05 Hemoglobin A1c 6.1 % (-5.6) H 01/27/18 06:05 Calcium 7.7 mg/dL (8.6-10.3) L 01/30/18 04:05 Venous Ioniz Calcium 1.08 mmol/L (1.15-1.35) L 01/30/18 04:22 Creatine Kinase 9020 Units/L (30-223) H 01/30/18 04:05 Albumin 2.5 g/dL (3.5-5.7) L 01/28/18 16:09 Arterial Blood Ionized Calcium 1.14 mmol/L (1.15-1.35) L 01/26/18 15:16 - Microbiology Findings Microbiology Findings: Microbiology, Last 48 Hours 01/28/18 12:46 Urine Culture - Preliminary Urine,[place] No growth. 01/28/18 12:46 Sputum Culture - Final Sputum - Clinical Findings Intake & Output: Intake & Output 01/29/18 01/29/18 01/30/18 15:59 23:59 07:59 Intake Total 404 / 404 451 / 451 155 / 155 Output Total 3775 / 3775 400 / 400 300 / 300 Balance -3371 / -3371 51 / 51 -145 / -145 Weight 91.4 kg - VTE Documentation of Mechanical Device: Intermittent pneumatic compression device Consult Discharge Plan - Plan Referrals: TYREE,PCP [Primary Care Provider] - 02/04/18 12:45 pm Jae Foster MD [Partnered Physician] - 02/17/18 9:45 am ()
[2018-01-30] MEDS: Insulin LISPRO 300 UNITS/3 ML VIAL SQ SCH ×3 (07:45→17:12)
[2018-01-30] MEDS: Albumin 25% 25gram/100mL 25 GM/100 ML IV.SOLN IVC SCH ×2 (10:36→10:46)
[2018-01-30] MEDS: Pantoprazole 40 MG VIAL IVP SCH (10:44)
--- NOTE | 2018-01-30 12:57 | Vascular/[facility] Progress Note ---
Date of Encounter: 01/30/18 Time of Encounter: 11:00 - Assessment and plan (1) PAD (peripheral artery disease) Current Visit: No Status: Chronic Patent right lower extremity revascularization. Excellent Doppler signals and normal perfusion to right foot. Surgical incisions are intact. No signs of hematoma. (2) Post-op bleeding Current Visit: Yes Status: Acute Patient has postop anemia. Transfusion therapy has been initiated. Patient's hemoglobin is stable. Qualifiers: Surgical complication system/body Area: circulatory system Procedure type: circulatory, unspecified Qualified Code(s): I97.618 - Postprocedural hemorrhage of a circulatory system organ or structure following other circulatory system procedure (3) Lactic acidosis Current Visit: Yes Status: Resolved Lactic acidosis is resolved with stable hemodynamics. Patient extubated earlier yesterday - Subjective Interval history: The patient has been extubated yesterday. Oxygenation and respiratory status has remained stable. He remains in the intensive care unit. He is clearly confused and mildly encephalopathic. Patient complains of back pain and bilateral lower extremity pain. Patient is minimally cooperative area he does respond to his name. Patient's family members are in the room and clinical status was reviewed with them. All questions were answered. Vital Signs, Last 4 Hours Pulse Resp BP Pulse Ox 01/30/18 11:24 69 01/30/18 11:00 64 18 94/43 96 01/30/18 10:00 74 20 96/45 100 01/30/18 09:00 60 18 109/51 99 - Physical Examination General: Present: Other (Patient is confused. Patient is moaning intermittently and then falls asleep.) HEENT: Present: Normocephaly Neck: Present: Midline deformity. Absent: JVD Cardiac: Present: Reg Rate and Rhythm, No Murmur Lungs: Present: Normal Breath Sounds Neuro: Present: Other (Patient is confused and has mild encephalopathy.) Vascular: Present: Normal capillary refill, Color/Temperature (Right foot is warm and pink. He has excellent triphasic Doppler signals.), Surgical incisions (Surgical incisions are covered with dry dressings.) Abdomen: Present: Soft, Non-tender Skin: Present: No rashes noted on visualized skin - VTE Documentation of Mechanical Device: Intermittent pneumatic compression device Results 01/30/18 04:05 01/30/18 04:05 Lab Results, Last 24 hours 01/29/18 01/29/18 01/29/18 15:35 15:35 19:00 WBC Hgb 8.2 L Hct 24.1 L Plt Count APTT 60.9 H Sodium 138 Potassium 3.5 Chloride 107 Carbon Dioxide 24 BUN 18 Creatinine 0.86 Glucose 116 H Calcium 7.6 L Magnesium 1.9 01/30/18 01/30/18 01/30/18 04:05 04:05 04:05 WBC 17.6 H Hgb 8.0 L Hct 23.8 L Plt Count 109 L APTT 62.2 H Sodium 138 Potassium 3.7 Chloride 107 Carbon Dioxide 23 BUN 18 Creatinine 0.84 Glucose 110 H Calcium 7.7 L Magnesium 2.1 Consult Discharge Plan - Plan Referrals: TYREE,PCP [Primary Care Provider] - 02/04/18 12:45 pm Jae Foster MD [Partnered Physician] - 02/17/18 9:45 am ()
[2018-01-30] MEDS: Phenylephrine 10 MG in D5% in Water 250 ML IVC SCH (14:18)
[2018-01-30] MEDS: Heparin 25,000 UNIT/500 ML D5W 25,000 UNIT/500 ML BAG IVC SCH (15:00)
[2018-01-30] MEDS: *HR* FentaNYL (PF) 100 MCG/2 ML VIAL IVP PRN ×3 (17:09→21:28)
[2018-01-31] MEDS: *HR* FentaNYL (PF) 100 MCG/2 ML VIAL IVP PRN ×5 (01:34→12:55)
[2018-01-31 03:36] LABS: Basophils % 0.1 %; Eosinophils # 0.2 K/mcL (0.0-0.6); Eosinophils % 2.2 %; Lymphocytes # 1.8 K/mcL (0.6-4.6); Lymphocytes % 17.3 %; Mean Corpuscular HGB Conc 31.8 g/dL (31.6-35.5); Mean Platelet Volume 10.7 fL (9.4-12.4); Monocytes % 9.7 %; Nucleated Red Blood Cells 0.4 /100 WBC (0); Platelet Count 116 K/mcL (140-400); Red Cell Distribution Width 16.1 % (11.5-14.5); Segmented Neutrophils % 67.7 %
[2018-01-31 03:55] LABS: BUN/Creatinine Ratio 23 (6-26); Blood Urea Nitrogen 20 mg/dL (8-23); Calcium 8.2 mg/dL (8.6-10.3); Carbon Dioxide 22 mEq/L (23-29); Chloride 111 mEq/L (98-107); Glucose 110 mg/dL (70-105); Magnesium 2.3 mg/dL (1.6-2.6); Osmolality,Calculated 291 (280-300); Potassium 3.5 mEq/L (3.5-5.1); Sodium 139 mEq/L (136-145); eGFR For African Americans > 60 (> 60); eGFR For Non-African Americans > 60 (> 60)
[2018-01-31 04:09] LABS: Creatine Kinase 4802 Units/L (30-223)
[2018-01-31] MEDS: Piperacillin/Tazobactam 3.375 GM in 0.9 % Sodium Chloride Mini Bag 100 ML IVPB SCH ×3 (04:20→20:04)
[2018-01-31] MEDS: Dexmedetomidine HCl 400 MCG/100 ML MLS IVC SCH ×3 (04:29→19:24)
[2018-01-31] MEDS: Potassium Chloride 40 MEQ/200 ML BAG IVPB PRN (05:46)
--- NOTE | 2018-01-31 06:45 | Pulmonology Progress Note ---
Date of Encounter: 01/31/18 Time of Encounter: 06:45 Assessment and Plan (1) Acute respiratory failure with hypoxia Current Visit: Yes Status: Acute The patient is 72 years old and has severe peripheral vascular disease. He is status post a complicated right lower extremity vascular resconruction including femoral and popliteal bypass grafting. The popliteal graft was complicated by acute thrombosis status post thrombectomy. He was requiring ventilator but has been liberated course complicated by delirium Management was reviewed during multidisciplinary critical care rounds. CRITICAL CARE UNIT NURSE: Patient remains delirious but this is improving . We will continue to focus on avoidance of sensory deprivation sleep-wake cycle yarsanism and avoidance of CRITICAL CARE UNIT NURSE depressants of visits we are able to Pulm: Tolerating nasal cannula oxygen support diuresis as tolerated continue bronchodilator support for history of COPD Cards/Vasc: Patient remains generally hemodynamically stable (occasional episodes of hypertension associated with agitation and pain) without vasopressor requirements. He is postop day 5 status post right lower extremity vascular reconstruction is postop day 3 status post thrombectomy. From the surgical standpoint he appears to be doing very well appreciate vascular surgery managing these aspects. We will continue to optimize blood pressure control post liberation from the vent FEN-GI; advance diet after bedside speech and swallow evaluation by QUALITATIVE FIELD COORDINATOR if this fails will need formal speech and swallow evaluation. We will advance bowel regimen for likely narcotic induced constipation Renal: Urine output is increased and nose acceptable range. Serum creatinine remained stable. He had evidence of the rhabdomyolysis which is improving. Remains generally total body volume overloaded we will continue diuresis ID: Concern for acute infectious process and Zosyn remains afebrile and white count is trending down cultures remain negative Heme/Onc: The patient is on a heparin infusion. He has developed some mild anemia with slight drop in H&H overnight hemoglobin 7 and will likely needs transfused X 24 hours Endo: Glucose Monitored and stable Integ/MSK: Skin Care per routine ICU Nursing Protocol to prevent ulcers. 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 He continues to be in pain mostly from the lower extremity and also states that he feels constipated Objective PUL Vital signs: Last Vital Signs Temp 98.9 F 01/31/18 04:00 Pulse 57 01/31/18 05:00 Resp 20 01/31/18 05:00 BP 111/49 01/31/18 05:00 Pulse Ox 95 01/31/18 05:00 General appearance: no acute distress Eyes: nonicteric ENT: oropharynx moist Neck: supple Auscultation: bilateral: diminished breath sounds (In lung bases), rales Cardiovascular: regular rate and rhythm Gastrointestinal: hypoactive bowel sounds, soft (Mildly distended), non-tender Extremities: anasarca, other (Pulses are dopplerable bilaterally in the lower extremity postsurgical changes on the right lower extremity are stable) non-focal exam, pupils equal and round affect normal Results - Laboratory Findings CBC and BMP: 01/31/18 03:20 01/31/18 03:20 ABG ABG pH 7.47 pH Units (7.32-7.45) H 01/29/18 04:43 ABG pCO2 32 mmHg (35-45) L 01/29/18 04:43 ABG pO2 58 mmHg (85-104) L 01/29/18 04:43 ABG O2 Saturation 92 % (95-98) L 01/29/18 04:43 PT/INR, D-dimer PT 12.8 Seconds (9.4-12.1) H 01/27/18 08:28 Abnormal lab findings: Abnormal lab results RBC 2.50 M/mcL (4.19-5.50) L 01/31/18 03:20 Hgb 7.0 g/dL (12.9-16.9) L 01/31/18 03:20 Hct 22.0 % (37.5-50.1) L 01/31/18 03:20 RDW 16.1 % (11.5-14.5) H 01/31/18 03:20 Plt Count 116 K/mcL (140-400) L 01/31/18 03:20 Nucleated RBCs/100 WBC 0.4 /100 WBC (0) H 01/31/18 03:20 Platelet Estimate Decreased (Normal) L 01/28/18 04:20 PT 12.8 Seconds (9.4-12.1) H 01/27/18 08:28 APTT 49.6 Seconds (26.0-36.0) H 01/31/18 03:20 ABG pH 7.47 pH Units (7.32-7.45) H 01/29/18 04:43 ABG pCO2 32 mmHg (35-45) L 01/29/18 04:43 ABG pO2 58 mmHg (85-104) L 01/29/18 04:43 ABG O2 Saturation 92 % (95-98) L 01/29/18 04:43 ABG Hematocrit 25.0 % (37.5-50.1) L 01/26/18 15:16 ABG Chloride 110 mEq/L (98-107) H 01/26/18 15:16 Glucose 161 mg/dL (60-95) H 01/26/18 15:16 Chloride 111 mEq/L (98-107) H 01/31/18 03:20 Carbon Dioxide 22 mEq/L (23-29) L 01/31/18 03:20 Glucose 110 mg/dL (70-105) H 01/31/18 03:20 POC Glucose 112 mg/dL (70-99) H 01/30/18 19:40 Hemoglobin A1c 6.1 % (-5.6) H 01/27/18 06:05 Calcium 8.2 mg/dL (8.6-10.3) L 01/31/18 03:20 Venous Ioniz Calcium 1.08 mmol/L (1.15-1.35) L 01/30/18 04:22 Creatine Kinase 4802 Units/L (30-223) H 01/31/18 03:20 Albumin 2.5 g/dL (3.5-5.7) L 01/28/18 16:09 Arterial Blood Ionized Calcium 1.14 mmol/L (1.15-1.35) L 01/26/18 15:16 - Microbiology Findings Microbiology Findings: Microbiology, Last 48 Hours 01/28/18 12:46 Urine Culture - Final Urine,[place] No growth. 01/28/18 14:31 Blood Culture - Preliminary Central Venous Catheter No growth. 01/28/18 14:31 Blood Culture - Preliminary Central Venous Catheter No growth. - Clinical Findings Intake & Output: Intake & Output 01/30/18 01/30/18 01/31/18 15:59 23:59 07:59 Intake Total 1045 / 1045 200 / 200 550 / 550 Output Total 1200 / 1200 300 / 300 450 / 450 Balance -155 / -155 -100 / -100 100 / 100 Weight 104.8 kg - VTE Documentation of Mechanical Device: Intermittent pneumatic compression device Consult Discharge Plan - Plan Referrals: TYREE,PCP [Primary Care Provider] - 02/04/18 12:45 pm Jae Foster MD [Partnered Physician] - 02/17/18 9:45 am ()
[2018-01-31] MEDS: Insulin LISPRO 300 UNITS/3 ML VIAL SQ SCH ×3 (08:22→18:21)
[2018-01-31] MEDS: Sennosides 8.6 MG TABLET PO SCH ×2 (08:22→20:04)
[2018-01-31] MEDS: Pantoprazole 40 MG VIAL IVP SCH (08:22)
[2018-01-31] MEDS: Heparin 25,000 UNIT/500 ML D5W 25,000 UNIT/500 ML BAG IVC SCH ×2 (08:30→22:50)
[2018-01-31] MEDS ORDERED: Furosemide 20 MG/2 ML VIAL IVP ONE (09:32)
[2018-01-31] MEDS: *HR* OxyCODONE/APAP 10/325 TABLET PO PRN ×2 (10:13→17:33)
--- NOTE | 2018-01-31 16:19 | Vascular/[facility] Progress Note ---
Date of Encounter: 01/31/18 Time of Encounter: 16:16 - Assessment and plan (1) PAD (peripheral artery disease) Current Visit: No Status: Chronic Patent right lower extremity revascularization. Excellent Doppler signals and normal perfusion to right foot. Surgical incisions are intact. No signs of hematoma. (2) Post-op bleeding Current Visit: Yes Status: Acute Patient has postop anemia. Transfusion therapy has been initiated. Patient's hemoglobin is decreased today to 7 g. Will follow. Qualifiers: Surgical complication system/body Area: circulatory system Procedure type: circulatory, unspecified Qualified Code(s): I97.618 - Postprocedural hemorrhage of a circulatory system organ or structure following other circulatory system procedure (3) Lactic acidosis Current Visit: Yes Status: Resolved Lactic acidosis is resolved with stable hemodynamics. - Subjective Interval history: Patient is seen in the intensive care unit. He is now awake and alert. He is conversant. He is appropriate to questions and answers. He complains of pain in the right lower extremity. Vital Signs, Last 4 Hours Pulse Resp BP Pulse Ox 01/31/18 15:00 54 12 96/55 100 01/31/18 14:00 54 12 93/57 99 01/31/18 13:00 56 12 98/57 98 - Physical Examination General: Present: Conversant HEENT: Present: Atraumatic Neck: Present: JVD Cardiac: Present: Reg Rate and Rhythm, Normal S1 and S2, No Murmur Lungs: Present: Normal Breath Sounds Neuro: Present: Alert and responsive, Other (A decreased motor function of right lower extremity in regards to thigh and knee extension and flexion as well as ankle extension and flexion) Vascular: Present: Normal capillary refill, Edema (The patient has edema of right lower extremity but is decreasing at both the thigh and calf level area), Color/Temperature (Right foot remains warm and pink with hyperperfusion effect after revascularization), Other (Patient has blister on posterior aspect of right heel) Abdomen: Present: Soft, Non-tender, Other (Obese) Skin: Present: No rashes noted on visualized skin - VTE Documentation of Mechanical Device: Intermittent pneumatic compression device Results 01/31/18 03:20 01/31/18 11:29 Lab Results, Last 24 hours 01/31/18 01/31/18 01/31/18 03:20 03:20 03:20 WBC 10.3 Hgb 7.0 L Hct 22.0 L Plt Count 116 L APTT 49.6 H Sodium 139 Potassium 3.5 Chloride 111 H Carbon Dioxide 22 L BUN 20 Creatinine 0.87 Glucose 110 H Calcium 8.2 L Magnesium 2.3 01/31/18 01/31/18 10:30 11:29 WBC Hgb Hct Plt Count APTT 64.2 H Sodium Potassium 3.7 Chloride Carbon Dioxide BUN Creatinine Glucose Calcium Magnesium Consult Discharge Plan - Plan Referrals: TYREE,PCP [Primary Care Provider] - 02/04/18 12:45 pm Jae Foster MD [Partnered Physician] - 02/17/18 9:45 am ()
[2018-01-31] MEDS: Phenylephrine 10 MG in D5% in Water 250 ML IVC SCH (18:21)
[2018-01-31] MEDS: Ketorolac 30 MG/ML VIAL IVP PRN (18:30)
[2018-01-31 18:48] LABS: Hematocrit 22.1 % (37.5-50.1); Hemoglobin 7.2 g/dL (12.9-16.9)
[2018-02-01] MEDS: Dexmedetomidine HCl 400 MCG/100 ML MLS IVC SCH ×2 (01:30→13:15)
[2018-02-01] MEDS: Piperacillin/Tazobactam 3.375 GM in 0.9 % Sodium Chloride Mini Bag 100 ML IVPB SCH (03:30)
[2018-02-01] MEDS: Ketorolac 30 MG/ML VIAL IVP PRN ×2 (03:34→10:29)
[2018-02-01 03:55] LABS: Basophils % 0.2 %; Eosinophils # 0.4 K/mcL (0.0-0.6); Eosinophils % 4.1 %; Hematocrit 21.8 % (37.5-50.1); Hemoglobin 7.1 g/dL (12.9-16.9); Immature Granulocytes % 4.4 % (0-4); Lymphocytes # 1.8 K/mcL (0.6-4.6); Lymphocytes % 20.3 %; Mean Corpuscular HGB Conc 32.6 g/dL (31.6-35.5); Mean Corpuscular Hemoglobin 29.3 pg (28.0-33.3); Mean Corpuscular Volume 90.1 fL (83.0-100.0); Mean Platelet Volume 11.4 fL (9.4-12.4); Monocytes # 0.9 K/mcL (0.0-1.3); Monocytes % 9.6 %; Neutrophils # 5.5 K/mcL (1.6-8.9); Nucleated Red Blood Cells 0.3 /100 WBC (0); Platelet Count 127 K/mcL (140-400); Red Blood Count 2.42 M/mcL (4.19-5.50); Red Cell Distribution Width 16.3 % (11.5-14.5); Segmented Neutrophils % 61.4 %
[2018-02-01 04:34] LABS: BUN/Creatinine Ratio 26 (6-26); Blood Urea Nitrogen 26 mg/dL (8-23); Carbon Dioxide 20 mEq/L (23-29); Chloride 107 mEq/L (98-107); Creatine Kinase 2966 Units/L (30-223); Glucose 116 mg/dL (70-105); Magnesium 2.2 mg/dL (1.6-2.6); Osmolality,Calculated 288 (280-300); Phosphorous 3.2 mg/dL (2.7-4.5); Potassium 3.3 mEq/L (3.5-5.1); Sodium 136 mEq/L (136-145); eGFR For African Americans > 60 (> 60); eGFR For Non-African Americans > 60 (> 60)
[2018-02-01] MEDS: Potassium Chloride 40 MEQ/200 ML BAG IVPB PRN (04:53)
--- NOTE | 2018-02-01 07:35 | Pulmonology Progress Note ---
<EpifnaioEdwar matos M - Last Filed: 02/01/18 10:10> Date of Encounter: 02/01/18 Objective PUL Vital signs: Last Vital Signs Temp 97.6 F 02/01/18 07:23 Pulse 60 02/01/18 08:00 Resp 12 02/01/18 08:00 BP 87/68 02/01/18 08:00 Pulse Ox 100 02/01/18 08:00 Results - Laboratory Findings CBC and BMP: 02/01/18 03:40 02/01/18 03:40 ABG ABG pH 7.47 pH Units (7.32-7.45) H 01/29/18 04:43 ABG pCO2 32 mmHg (35-45) L 01/29/18 04:43 ABG pO2 58 mmHg (85-104) L 01/29/18 04:43 ABG O2 Saturation 92 % (95-98) L 01/29/18 04:43 PT/INR, D-dimer PT 12.8 Seconds (9.4-12.1) H 01/27/18 08:28 Abnormal lab findings: Abnormal lab results RBC 2.42 M/mcL (4.19-5.50) L 02/01/18 03:40 Hgb 7.1 g/dL (12.9-16.9) L 02/01/18 03:40 Hct 21.8 % (37.5-50.1) L 02/01/18 03:40 RDW 16.3 % (11.5-14.5) H 02/01/18 03:40 Plt Count 127 K/mcL (140-400) L 02/01/18 03:40 Immature Gran % 4.4 % (0-4) H 02/01/18 03:40 Nucleated RBCs/100 WBC 0.3 /100 WBC (0) H 02/01/18 03:40 Platelet Estimate Decreased (Normal) L 01/28/18 04:20 PT 12.8 Seconds (9.4-12.1) H 01/27/18 08:28 APTT 70.9 Seconds (26.0-36.0) H 02/01/18 03:40 ABG pH 7.47 pH Units (7.32-7.45) H 01/29/18 04:43 ABG pCO2 32 mmHg (35-45) L 01/29/18 04:43 ABG pO2 58 mmHg (85-104) L 01/29/18 04:43 ABG O2 Saturation 92 % (95-98) L 01/29/18 04:43 ABG Hematocrit 25.0 % (37.5-50.1) L 01/26/18 15:16 ABG Chloride 110 mEq/L (98-107) H 01/26/18 15:16 Glucose 161 mg/dL (60-95) H 01/26/18 15:16 Potassium 3.3 mEq/L (3.5-5.1) L 02/01/18 03:40 Carbon Dioxide 20 mEq/L (23-29) L 02/01/18 03:40 BUN 26 mg/dL (8-23) H 02/01/18 03:40 Glucose 116 mg/dL (70-105) H 02/01/18 03:40 POC Glucose 112 mg/dL (70-99) H 02/01/18 06:49 Hemoglobin A1c 6.1 % (-5.6) H 01/27/18 06:05 Calcium 8.0 mg/dL (8.6-10.3) L 02/01/18 03:40 Venous Ioniz Calcium 1.08 mmol/L (1.15-1.35) L 01/30/18 04:22 Creatine Kinase 2966 Units/L (30-223) H 02/01/18 03:40 Albumin 2.5 g/dL (3.5-5.7) L 01/28/18 16:09 Arterial Blood Ionized Calcium 1.14 mmol/L (1.15-1.35) L 01/26/18 15:16 - Microbiology Findings Microbiology Findings: Microbiology, Last 48 Hours 01/28/18 12:46 Urine Culture - Final Urine,[place] No growth. 01/28/18 14:31 Blood Culture - Preliminary Central Venous Catheter No growth. 01/28/18 14:31 Blood Culture - Preliminary Central Venous Catheter No growth. - Clinical Findings Intake & Output: Intake & Output 01/31/18 02/01/18 02/01/18 23:59 07:59 15:59 Intake Total 420 / 420 262 / 262 480 / 480 Output Total 550 / 550 300 / 300 Balance -130 / -130 -38 / -38 480 / 480 Weight 107.4 kg Consult Discharge Plan - Plan Referrals: PA,PCP [Primary Care Provider] - 02/04/18 12:45 pm Jae Foster MD [Partnered Physician] - 02/17/18 9:45 am () - Attending Attestation I examined this patient and my medical decision-making was reviewed with the Resident Physician. I agree with the documented findings, disposition and treatment plan as described except to the extent set forth below. Patient seen and examined. Labs, radiology, chart personally reviewed. Agree with resident's history and physical, assessment, plan with following comments: [employer]: Patient follows commands, Pulmonary: Acceptable oxygenation and ventilation Cardiovascular: stable GI: Nutrition per dietary and GI prophylaxis per routine Heme: DVT prophylaxis per routine and transfuse PRBC and heparin to continue. Vascular is follow up. ID: Stop antibiotic. Renal; urine out put and renal funtion reviewed Endorcine: blood glucose is monitored Lines: all lines checked and no evidence of infections Skin: skin care to prevent pressure ulcers per nursing routine care Transfer to [facility]. <Maurizio Benoit - Last Filed: 02/01/18 11:26> Date of Encounter: 02/01/18 Time of Encounter: 09:26 Assessment and Plan (1) Post-op bleeding Current Visit: Yes Status: Acute Patient has severe peripheral vascular disease. He is status post ectopic acute right lower externally vascular reconstruction including for moral and popliteal bypass grafting. Popliteal graft was comfortable by Q thrombus status post thrombectomy. He was crying ventilator but has been extubated and his course been complicated by delirium. Patient is being planned to transfer out of the ICU today to [facility]. We will discontinue the Zosyn at this time as there is no source of infection patient has had no fevers and there is no leukocytosis. I did speak with Dr. Yoder today and he would like us to continue the patient on heparin and patient's hemoglobin is 7.1 and he did recommend that we give a 1 unit transfusion which I have ordered. He will continue to follow the patient in consultation with the hospitalist service in [facility]. Qualifiers: Surgical complication system/body Area: circulatory system Procedure type: circulatory, unspecified Qualified Code(s): I97.618 - Postprocedural hemorrhage of a circulatory system organ or structure following other circulatory system procedure (2) Lactic acidosis Current Visit: Yes Status: Resolved Lactic acidosis/rhabdomyolysis has alleviated. 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 Patient is now doing better at this time. He still continues to have right leg pain. Patient is up and moving and also in a chair which is recommended per Dr. Foster. Otherwise no concerns. Continue to monitor site to be sure patient still does not have any ongoing compartment syndrome (5) PAD (peripheral artery disease) Current Visit: No Status: Chronic See above (6) DVT prophylaxis Current Visit: No Status: Acute Patient still on heparin per Dr. Foster (7) Delirium due to general medical condition Current Visit: Yes Status: Acute After being extubated patient did have mild signs of delirium. We will recommend transfer out of the ICU to help with the delirium. It is getting better the more time patient spends outside of sedation and with family. We will continue to monitor Subjective Principal diagnosis: Peripheral Vascular Disease Interval history: Patient did well overnight. Dr. Yoder did come and talk to patient yesterday at length to M, another process what he is enough to go under. They are expecting long-term rehabilitation facility. He also wants him up and out of bed and sitting a chair more often than laying in bed. Patient says it does hurt but he understands this is why he needs to do to fully recover. Family is also understanding of this and agrees with this plan. Patient is planned for transferring out of the ICU today he had no acute overnight events. Patient did well. Objective PUL Vital signs: Last Vital Signs Temp 97.6 F 02/01/18 07:23 Pulse 48 02/01/18 06:00 Resp 17 02/01/18 06:00 BP 87/60 02/01/18 06:00 Pulse Ox 100 02/01/18 06:00 General appearance: no acute distress Eyes: nonicteric ENT: oropharynx moist Neck: supple Effort: normal Auscultation: bilateral: clear Cardiovascular: regular rate and rhythm Gastrointestinal: normoactive bowel sounds, non-distended Extremities: no cyanosis, no clubbing, edema (Right-sided leg edema +1 pitting) Musculoskeletal: no deformities, ROM normal normal mental status, non-focal exam, pupils equal and round, motor strength normal and symmetric Results - Laboratory Findings CBC and BMP: 02/01/18 03:40 02/01/18 03:40 ABG ABG pH 7.47 pH Units (7.32-7.45) H 01/29/18 04:43 ABG pCO2 32 mmHg (35-45) L 01/29/18 04:43 ABG pO2 58 mmHg (85-104) L 01/29/18 04:43 ABG O2 Saturation 92 % (95-98) L 01/29/18 04:43 PT/INR, D-dimer PT 12.8 Seconds (9.4-12.1) H 01/27/18 08:28 Abnormal lab findings: Abnormal lab results RBC 2.42 M/mcL (4.19-5.50) L 02/01/18 03:40 Hgb 7.1 g/dL (12.9-16.9) L 02/01/18 03:40 Hct 21.8 % (37.5-50.1) L 02/01/18 03:40 RDW 16.3 % (11.5-14.5) H 02/01/18 03:40 Plt Count 127 K/mcL (140-400) L 02/01/18 03:40 Immature Gran % 4.4 % (0-4) H 02/01/18 03:40 Nucleated RBCs/100 WBC 0.3 /100 WBC (0) H 02/01/18 03:40 Platelet Estimate Decreased (Normal) L 01/28/18 04:20 PT 12.8 Seconds (9.4-12.1) H 01/27/18 08:28 APTT 70.9 Seconds (26.0-36.0) H 02/01/18 03:40 ABG pH 7.47 pH Units (7.32-7.45) H 01/29/18 04:43 ABG pCO2 32 mmHg (35-45) L 01/29/18 04:43 ABG pO2 58 mmHg (85-104) L 01/29/18 04:43 ABG O2 Saturation 92 % (95-98) L 01/29/18 04:43 ABG Hematocrit 25.0 % (37.5-50.1) L 01/26/18 15:16 ABG Chloride 110 mEq/L (98-107) H 01/26/18 15:16 Glucose 161 mg/dL (60-95) H 01/26/18 15:16 Potassium 3.3 mEq/L (3.5-5.1) L 02/01/18 03:40 Carbon Dioxide 20 mEq/L (23-29) L 02/01/18 03:40 BUN 26 mg/dL (8-23) H 02/01/18 03:40 Glucose 116 mg/dL (70-105) H 02/01/18 03:40 POC Glucose 112 mg/dL (70-99) H 02/01/18 06:49 Hemoglobin A1c 6.1 % (-5.6) H 01/27/18 06:05 Calcium 8.0 mg/dL (8.6-10.3) L 02/01/18 03:40 Venous Ioniz Calcium 1.08 mmol/L (1.15-1.35) L 01/30/18 04:22 Creatine Kinase 2966 Units/L (30-223) H 02/01/18 03:40 Albumin 2.5 g/dL (3.5-5.7) L 01/28/18 16:09 Arterial Blood Ionized Calcium 1.14 mmol/L (1.15-1.35) L 01/26/18 15:16 - Microbiology Findings Microbiology Findings: Microbiology, Last 48 Hours 01/28/18 12:46 Urine Culture - Final Urine,[place] No growth. 01/28/18 14:31 Blood Culture - Preliminary Central Venous Catheter No growth. 01/28/18 14:31 Blood Culture - Preliminary Central Venous Catheter No growth. - Clinical Findings Intake & Output: Intake & Output 01/31/18 01/31/18 02/01/18 15:59 23:59 07:59 Intake Total 480 / 480 420 / 420 262 / 262 Output Total 800 / 800 550 / 550 300 / 300 Balance -320 / -320 -130 / -130 -38 / -38 Weight 107.4 kg - VTE Documentation of Mechanical Device: Intermittent pneumatic compression device
[2018-02-01] MEDS: Insulin LISPRO 300 UNITS/3 ML VIAL SQ SCH ×3 (08:31→15:57)
[2018-02-01] MEDS: *HR* OxyCODONE/APAP 10/325 TABLET PO PRN ×4 (09:55→21:57)
[2018-02-01] MEDS: Sennosides 8.6 MG TABLET PO SCH ×2 (09:55→21:57)
[2018-02-01] MEDS: Pantoprazole 40 MG VIAL IVP SCH (09:55)
[2018-02-01] MEDS ORDERED: Ketorolac 15 MG/ML VIAL IVP PRN (10:30)
[2018-02-01] MEDS: Heparin 25,000 UNIT/500 ML D5W 25,000 UNIT/500 ML BAG IVC SCH (15:09)
[2018-02-01] MEDS: Phenylephrine 10 MG in D5% in Water 250 ML IVC SCH (17:51)
[2018-02-01] MEDS: *HR* FentaNYL (PF) 100 MCG/2 ML VIAL IVP PRN (18:05)
--- NOTE | 2018-02-01 18:17 | Vascular/Endovas Progress Note ---
Date of Encounter: 02/01/18 Time of Encounter: 13:30 - Assessment and plan (1) PAD (peripheral artery disease) Current Visit: No Status: Chronic Patent right lower extremity revascularization. Excellent Doppler signals and normal perfusion to right foot. Surgical incisions are intact. No signs of hematoma. No active signs of bleeding. Increase post op activities. May transfer to when bed available. Anticipate In pt Rehab upon discharge from hospital. (2) Post-op bleeding Current Visit: Yes Status: Acute Patient has postop anemia. Transfusion therapy has been initiated. Patient's hemoglobin is 7.1g. Transfuse one unit Qualifiers: Surgical complication system/body Area: circulatory system Procedure type: circulatory, unspecified Qualified Code(s): I97.618 - Postprocedural hemorrhage of a circulatory system organ or structure following other circulatory system procedure (3) Lactic acidosis Current Visit: Yes Status: Resolved Lactic acidosis is resolved with stable hemodynamics. - Subjective Interval history: Patient is seen in the intensive care unit. He is awake and alert. He is conversant. He is appropriate to questions and answers. He complains of pain in the right lower extremity. He was up in chair yesterday and this AM. Tolerating diet well. Vital Signs, Last 4 Hours Temp Pulse Resp BP Pulse Ox 02/01/18 18:00 81 14 132/56 96 02/01/18 17:54 98.0 F 80 16 155/79 99 02/01/18 16:00 98.0 F 91 20 139/49 98 02/01/18 15:15 98.0 F 91 18 104/76 98 02/01/18 15:00 97.7 F 70 15 135/59 99 - Physical Examination General: Present: Conversant HEENT: Present: Atraumatic, Normocephaly Neck: Absent: JVD Cardiac: Present: Reg Rate and Rhythm, Normal S1 and S2 Lungs: Present: Normal Breath Sounds Neuro: Present: Alert and responsive, Cranial nerves grossly intact, Other ( right lower ext weakness) Vascular: Present: Normal capillary refill (right foot), Capillary refill delayed (left foot), Edema (right LE edema-slowly improving), Color/Temperature (right foot warm and pink), Surgical incisions (intact--serous drainage from groin) Abdomen: Present: Soft, Non-tender, Other (obese) Skin: Present: No rashes noted on visualized skin - VTE Documentation of Mechanical Device: Intermittent pneumatic compression device Results 02/01/18 03:40 02/01/18 13:30 Lab Results, Last 24 hours 01/31/18 01/31/18 02/01/18 18:35 18:35 03:40 WBC 9.0 Hgb 7.2 L 7.1 L Hct 22.1 L 21.8 L Plt Count 127 L APTT 58.5 H Sodium Potassium Chloride Carbon Dioxide BUN Creatinine Glucose Calcium Magnesium 02/01/18 02/01/18 02/01/18 03:40 03:40 13:30 WBC Hgb Hct Plt Count APTT 70.9 H Sodium 136 Potassium 3.3 L 3.6 Chloride 107 Carbon Dioxide 20 L BUN 26 H Creatinine 1.01 Glucose 116 H Calcium 8.0 L Magnesium 2.2 Consult Discharge Plan - Plan Referrals: TYREE,PCP [Primary Care Provider] - 02/04/18 12:45 pm Jae Foster MD [Partnered Physician] - 02/17/18 9:45 am ()
[2018-02-01] MEDS ORDERED: *HR* FentaNYL (PF) 100 MCG/2 ML VIAL IVP PRN (19:16)
[2018-02-01] MEDS ORDERED: Dextrose Gel 15 GM/37.5 ML TUBE PO PRN ×2 (19:16)
[2018-02-01] MEDS ORDERED: Dexmedetomidine HCl 400 MCG/100 ML MLS IVC SCH (19:16)
[2018-02-01] MEDS ORDERED: *HR* Dextrose 50 % in Water (Syg) 50 ML SYRINGE IVP PRN (19:16)
[2018-02-01] MEDS ORDERED: Ondansetron 4 MG/2 ML VIAL IVP PRN (19:16)
[2018-02-01] MEDS ORDERED: Potassium Chloride 40 MEQ/200 ML BAG IVPB PRN (19:16)
[2018-02-01] MEDS ORDERED: D5% in Water 1,000 ML IVC PRN (19:16)
[2018-02-01] MEDS ORDERED: Potassium Phosphate 44 MEQ in 0.9 % Sodium Chloride 250 ML IVPB PRN (19:16)
[2018-02-01] MEDS ORDERED: MORPHINE SUL Oral CONC 10 MG/0.5 ML ORAL.SYG SL PRN (19:16)
[2018-02-01] MEDS ORDERED: Naloxone 0.4 MG/ML INJ IVP PRN (19:16)
[2018-02-01] MEDS ORDERED: *HR* Promethazine 25 MG/ML VIAL IVP PRN (19:16)
[2018-02-01] MEDS ORDERED: *HR* Labetalol 20 MG/4 ML SYRINGE IVP PRN (19:16)
[2018-02-01] MEDS: Ketorolac 15 MG/ML VIAL IVP PRN (19:35)
[2018-02-01] MEDS: OXYCODONE Oral CONC 10 MG/0.5 ML ORAL.SYG SL PRN (23:21)
[2018-02-02] MEDS: *HR* FentaNYL (PF) 100 MCG/2 ML VIAL IVP PRN ×4 (00:36→06:10)
[2018-02-02] MEDS: Ketorolac 15 MG/ML VIAL IVP PRN ×3 (03:06→16:33)
[2018-02-02 03:49] LABS: Basophils % 0.2 %; Eosinophils # 0.3 K/mcL (0.0-0.6); Eosinophils % 3.4 %; Hematocrit 24.7 % (37.5-50.1); Hemoglobin 8.1 g/dL (12.9-16.9); Immature Granulocytes % 5.1 % (0-4); Lymphocytes # 1.2 K/mcL (0.6-4.6); Lymphocytes % 12.3 %; Mean Corpuscular HGB Conc 32.8 g/dL (31.6-35.5); Mean Corpuscular Hemoglobin 29.6 pg (28.0-33.3); Mean Corpuscular Volume 90.1 fL (83.0-100.0); Mean Platelet Volume 11.6 fL (9.4-12.4); Monocytes # 0.9 K/mcL (0.0-1.3); Monocytes % 9.6 %; Neutrophils # 6.8 K/mcL (1.6-8.9); Nucleated Red Blood Cells 0.3 /100 WBC (0); Platelet Count 199 K/mcL (140-400); Red Blood Count 2.74 M/mcL (4.19-5.50); Red Cell Distribution Width 16.3 % (11.5-14.5); Segmented Neutrophils % 69.4 %
[2018-02-02 04:04] LABS: Platelet Estimate Normal (Normal)
[2018-02-02 04:15] LABS: BUN/Creatinine Ratio 22 (6-26); Blood Urea Nitrogen 20 mg/dL (8-23); Carbon Dioxide 21 mEq/L (23-29); Chloride 109 mEq/L (98-107); Glucose 120 mg/dL (70-105); Osmolality,Calculated 288 (280-300); Potassium 3.8 mEq/L (3.5-5.1); Sodium 137 mEq/L (136-145); eGFR For African Americans > 60 (> 60); eGFR For Non-African Americans > 60 (> 60)
[2018-02-02] MEDS: *HR* OxyCODONE/APAP 10/325 TABLET PO PRN ×3 (04:54→20:01)
[2018-02-02] MEDS: Heparin 25,000 UNIT/500 ML D5W 25,000 UNIT/500 ML BAG IVC SCH ×2 (06:11→21:27)
[2018-02-02] MEDS: Insulin LISPRO 300 UNITS/3 ML VIAL SQ SCH ×3 (08:11→16:32)
[2018-02-02] MEDS: Sennosides 8.6 MG TABLET PO SCH ×2 (08:30→20:01)
[2018-02-02] MEDS: Gabapentin 100 MG CAPSULE PO SCH ×3 (10:19→20:02)
[2018-02-02] MEDS ORDERED: Furosemide 20 MG TABLET PO PRN (14:30)
[2018-02-02] MEDS ORDERED: *HR* Labetalol 20 MG/4 ML SYRINGE IVP PRN (14:34)
--- NOTE | 2018-02-02 14:43 | Internal Medicine Consult Note ---
Date of Encounter: 02/02/18 Time of Encounter: 14:35 - Assessment and plan (1) PAD (peripheral artery disease) Current Visit: No Status: Chronic Assessment and plan: POD #7 (date of surgery: 01/26/18) right lower extremity revascularization continue management as per primary team (2) Hypertension Current Visit: Yes Status: Chronic Assessment and plan: Noted to be hypertensive today will restart pt's home dose of Metoprolol and Lisinopril Will closely monitor BP and adjust medications as needed Qualifiers: Hypertension type: essential hypertension Qualified Code(s): I10 - Essential (primary) hypertension (3) Hyperlipidemia Current Visit: Yes Status: Chronic Assessment and plan: restarted home dose of statin Qualifiers: Hyperlipidemia type: unspecified Qualified Code(s): E78.5 - Hyperlipidemia , unspecified (4) Acute blood loss as cause of postoperative anemia Current Visit: Yes Status: Acute Assessment and plan: s/p PRBC transfusion on 02/01/18 Repeat H&H within acceptable range continue to closely monitor Pt also reported to have history of iron deficiency anemia, will resume home dose of iron supplementation (5) Pulmonary embolism on right Current Visit: No Status: Acute Assessment and plan: Pt diagnosed with acute PE in Sep 2017 and on Xarelto at home Currently on heparin gtt as per vascular surgery will defer to vascular surgery to decide when pt can be transitioned to Xarelto from heparin gtt (6) DVT prophylaxis Current Visit: No Status: Acute Assessment and plan: heparin gtt - Time Spent With Patient Total time spent is greater than 50% in coordination of care (as documented) at patient's floor/unit and/or counseling patient: Internal Medicine - CN: HPI - Data of Consult Requesting Physician: Jae Foster MD - Consult Narrative History of present illness: Mr. Sena is a 72 year old male with PMH Of HTN, CAD, PVD who is admitted to the ICU post op right lower extremity revascularization on 01/26/18. His post-op course was complicated by right lower extremity thrombus requiring emergent thrombectomy of right leg bypass graft on 01/27/18. He further had post-op anemia and required PRBC transfusions. He is POD #7 in the ICU, and is awaiting transfer to pending bed availability. Critical care team has signed off and vascular surgery has requested medicine consult for management of patient's co- morbidities. Patient seen and examined in the ICU. He is resting in bed and reports of sitting in the chair earlier today. He continues to complain of pain but reports improvement. Noted to be hypertensive today. s/p PRBC transfusion on , repeat H&H within acceptable range. Pt denies any chest pain, sob, or any other discomfort other than right lower extremity pain at this time. Past Med Surg Social Fam HX - Past Medical History Medical history: aortic aneurysm, coronary artery disease, hyperlipidemia, hypertension, peripheral artery disease, pulmonary embolus Psychiatric history: no psych history - Past Surgical History Surgical History: angioplasty/stent, coronary bypass (CABG), vascular surgery - Social History Smoking Status: Current every day smoker Smokeless Tobacco Status: No Alcohol use: none Drug use: none - Family History Father Family Member Ethnicity: Non- Living Status: Hx Family Cancer: Yes (Leukemia) Mother Family Member Ethnicity: Non- Living Status: Brother Family Member Ethnicity: Non- Living Status: Hx Family Cancer: Yes (Prostate) Sister Family Member Ethnicity: Non- Living Status: Still Living Internal Medicine - CN: Meds Aspirin Enteric Coated [Aspirin EC] 325 mg PO DAILY 10/05/17 [History] Lisinopril [Zestril] 5 mg PO HS 10/05/17 [History] Metoprolol XL (24 HR) Succ [Toprol XL] 25 mg PO HS 10/05/17 [History] Omeprazole [PriLOSEC] 20 mg PO DAILY 10/05/17 [History] Simvastatin [Zocor] 40 mg PO QPM 10/05/17 [History] Ascorbic Acid [Vitamin C] 250 mg PO BID 01/26/18 [History] Ferrous Gluconate 324 mg PO BID 01/26/18 [History] Furosemide [Lasix] 20 mg PO DAILY PRN 01/26/18 [History] Rivaroxaban [Xarelto] 10 mg PO 1700 01/26/18 [History] 3 Allergy/AdvReac Type Severity Reaction Status Date / Time No Known Allergies Allergy Verified 01/26/18 07:23 Internal Medicine - CN: Exam - Constitutional Vitals: Temp Pulse Resp BP Pulse Ox 99.8 F H 98 16 158/68 99 02/02/18 11:39 02/02/18 14:00 02/02/18 14:00 02/02/18 14:00 02/02/18 14:00 General appearance IM: Present: A&O X 3, no acute distress, obese - Head Head exam: Present: atraumatic, normocephalic - Eye Eye exam: Present: normal appearance - Respiratory Respiratory exam: Present: CTAB. Absent: respiratory distress, wheezes - Cardiovascular Cardiovascular exam IM: Present: RRR, +S1, +S2 - GI/Abdominal GI/Abdominal exam IM: Present: normal bowel sounds, soft, no peritoneal signs. Absent: distended, tenderness - Extremities Exam Extremities exam IM: Present: tenderness (right lower extremity tenderness), warm, radial pulses palpable and symmetrical Internal Medicine - CN: Reslt - Labs CBC & Chem 7: 02/02/18 03:53 02/02/18 11:25 Labs: Short CBC 02/02/18 Range/Units 03:53 WBC 9.8 (4.3-11.1) K/mcL Hgb 8.1 L (12.9-16.9) g/dL Hct 24.7 L (37.5-50.1) % Plt Count 199 D (140-400) K/mcL Neutrophils # 6.8 (1.6-8.9) K/mcL BMP 02/02/18 02/02/18 03:36 11:25 Sodium 137 Potassium 3.8 4.5 Chloride 109 H Carbon Dioxide 21 L BUN 20 Creatinine 0.92 Glucose 120 H Calcium 8.0 L - ABG Interpretation ABG results: ABG ABG pH 7.47 pH Units (7.32-7.45) H 01/29/18 04:43 ABG pCO2 32 mmHg (35-45) L 01/29/18 04:43 ABG pO2 58 mmHg (85-104) L 01/29/18 04:43 ABG O2 Saturation 92 % (95-98) L 01/29/18 04:43 PT/INR, D-dimer PT 12.8 Seconds (9.4-12.1) H 01/27/18 08:28 Consult Discharge Plan - Plan Referrals: TYREE,PCP [Primary Care Provider] - 02/04/18 12:45 pm Jae Foster MD [Partnered Physician] - 02/17/18 9:45 am ()
--- NOTE | 2018-02-02 16:21 | Vascular/End[facility]as Progress Note ---
Date of Encounter: 02/02/18 Time of Encounter: 08:30 - Assessment and plan (1) PAD (peripheral artery disease) Current Visit: No Status: Chronic Patent right lower extremity revascularization. Excellent Doppler signals and normal perfusion to right foot. Surgical incisions are intact. No signs of hematoma. No active signs of bleeding. Patient responded appropriately to a 1 unit blood transfusion from yesterday. Increase post op activities. May transfer to when bed available. Anticipate In pt Rehab upon discharge from hospital. (2) Post-op bleeding Current Visit: Yes Status: Acute Patient has postop anemia. Qualifiers: Surgical complication system/body Area: circulatory system Procedure type: circulatory, unspecified Qualified Code(s): I97.618 - Postprocedural hemorrhage of a circulatory system organ or structure following other circulatory system procedure (3) Lactic acidosis Current Visit: Yes Status: Resolved Lactic acidosis is resolved with stable hemodynamics. - Subjective Interval history: Patient is seen in the intensive care unit. He is awake and alert. He is conversant. He is appropriate to questions and answers. He complains of pain in the right lower extremity and difficulty moving his leg. He states it is worse after he has been sitting up in the chair. He was up in a chair earlier today. Tolerating diet well. Will try Neurontin to enhance pain control. Vital Signs, Last 4 Hours Temp Pulse Resp BP Pulse Ox 02/02/18 16:12 99 02/02/18 16:08 98.6 F 97 18 110/76 95 02/02/18 14:00 98 16 158/68 99 - Physical Examination General: Present: Conversant, Well developed, Well nourished HEENT: Present: Atraumatic Neck: Absent: JVD Cardiac: Present: Reg Rate and Rhythm Vascular: Present: Other (Right foot is warm and pink. He has excellent Doppler signals. Patient has dressings on his right lower extremity incisions.) Abdomen: Present: Soft, Non-tender - VTE Documentation of Mechanical Device: Intermittent pneumatic compression device Results 02/02/18 03:53 02/02/18 11:25 Lab Results, Last 24 hours 02/02/18 02/02/18 02/02/18 03:36 03:36 03:53 WBC 9.8 Hgb 8.1 L Hct 24.7 L Plt Count 199 D APTT 56.3 H Sodium 137 Potassium 3.8 Chloride 109 H Carbon Dioxide 21 L BUN 20 Creatinine 0.92 Glucose 120 H Calcium 8.0 L 02/02/18 02/02/18 11:25 11:25 WBC Hgb Hct Plt Count APTT 82.5 H Sodium Potassium 4.5 Chloride Carbon Dioxide BUN Creatinine Glucose Calcium Consult Discharge Plan - Plan Referrals: TYREEPCP [Primary Care Provider] - 02/04/18 12:45 pm Jae Foster MD [Partnered Physician] - 02/17/18 9:45 am ()
[2018-02-02] MEDS: OXYCODONE Oral CONC 10 MG/0.5 ML ORAL.SYG SL PRN (16:33)
[2018-02-02] MEDS: Ascorbic Acid 500 MG TABLET PO SCH (20:01)
[2018-02-02] MEDS: Metoprolol XL (24 HR) Succ 25 MG TAB.ER.24H PO SCH (20:01)
[2018-02-03] MEDS: OXYCODONE Oral CONC 10 MG/0.5 ML ORAL.SYG SL PRN ×2 (00:28→18:17)
[2018-02-03] MEDS: Ketorolac 15 MG/ML VIAL IVP PRN ×2 (00:29→06:02)
[2018-02-03] MEDS: *HR* OxyCODONE/APAP 10/325 TABLET PO PRN ×3 (06:00→21:36)
[2018-02-03 06:43] LABS: Basophils % 0.4 %; Eosinophils # 0.4 K/mcL (0.0-0.6); Eosinophils % 3.4 %; Hematocrit 25.5 % (37.5-50.1); Hemoglobin 8.3 g/dL (12.9-16.9); Immature Granulocytes % 5.9 % (0-4); Lymphocytes # 1.1 K/mcL (0.6-4.6); Lymphocytes % 10.2 %; Mean Corpuscular HGB Conc 32.5 g/dL (31.6-35.5); Mean Corpuscular Hemoglobin 29.6 pg (28.0-33.3); Mean Corpuscular Volume 91.1 fL (83.0-100.0); Mean Platelet Volume 11.1 fL (9.4-12.4); Monocytes # 1.1 K/mcL (0.0-1.3); Monocytes % 9.8 %; Neutrophils # 7.7 K/mcL (1.6-8.9); Nucleated Red Blood Cells 0.6 /100 WBC (0); Platelet Count 251 K/mcL (140-400); Red Cell Distribution Width 16.7 % (11.5-14.5); Segmented Neutrophils % 70.3 %
[2018-02-03 07:08] LABS: BUN/Creatinine Ratio 13 (6-26); Blood Urea Nitrogen 11 mg/dL (8-23); Calcium 8.3 mg/dL (8.6-10.3); Carbon Dioxide 20 mEq/L (23-29); Chloride 107 mEq/L (98-107); Glucose 110 mg/dL (70-105); Osmolality,Calculated 282 (280-300); Phosphorous 2.5 mg/dL (2.7-4.5); Potassium 3.9 mEq/L (3.5-5.1); Sodium 136 mEq/L (136-145); eGFR For African Americans > 60 (> 60); eGFR For Non-African Americans > 60 (> 60)
[2018-02-03 07:23] LABS: Anisocytosis 2+ (Not Present)
[2018-02-03 07:24] LABS: Platelet Estimate Normal (Normal); Polychromasia 2+ (Not Present)
[2018-02-03] MEDS: Sennosides 8.6 MG TABLET PO SCH ×2 (08:50→20:06)
[2018-02-03] MEDS: Insulin LISPRO 300 UNITS/3 ML VIAL SQ SCH ×2 (08:51→12:30)
[2018-02-03] MEDS: Gabapentin 100 MG CAPSULE PO SCH ×3 (08:52→20:05)
[2018-02-03] MEDS: Aspirin Enteric Coated 325 MG Tablet PO SCH (08:52)
[2018-02-03] MEDS: Ascorbic Acid 500 MG TABLET PO SCH ×2 (08:52→20:05)
[2018-02-03] MEDS: Heparin 25,000 UNIT/500 ML D5W 25,000 UNIT/500 ML BAG IVC SCH (13:07)
--- NOTE | 2018-02-03 17:29 | Vascular/Endovas Progress Note ---
Date of Encounter: 02/03/18 Time of Encounter: 08:30 - Assessment and plan (1) PAD (peripheral artery disease) Current Visit: No Status: Chronic Patent right lower extremity revascularization. Excellent Doppler signals and normal perfusion to right foot. Surgical incisions are intact. No signs of hematoma. No active signs of bleeding. Increase post op activities. Anticipate In pt Rehab upon discharge from hospital. (2) Post-op bleeding Current Visit: Yes Status: Acute Patient has postop anemia. Hemoglobin is stable at 8.3. Qualifiers: Surgical complication system/body Area: circulatory system Procedure type: circulatory, unspecified Qualified Code(s): I97.618 - Postprocedural hemorrhage of a circulatory system organ or structure following other circulatory system procedure (3) Lactic acidosis Current Visit: Yes Status: Resolved Lactic acidosis is resolved with stable hemodynamics. - Subjective Interval history: Patient was transferred to [facility] yesterday afternoon. He is awake and alert. He is conversant. He is appropriate to questions and answers. He complains of pain in the right lower extremity. Patient is continuing with physical and occupational therapy. Awaiting arrangements for transfer to extended care facility. Patient is medically stable and able to be transferred. The IV heparin will be discontinued and Xarleto therapy will be reinitiated. Vital Signs, Last 4 Hours Temp Pulse Resp BP Pulse Ox 02/03/18 16:53 99.2 F 83 16 104/74 96 - Physical Examination General: Present: Conversant, No Apparent Distress, Well developed, Well nourished HEENT: Present: Atraumatic, Normocephaly Neck: Absent: JVD Cardiac: Present: Reg Rate and Rhythm, Normal S1 and S2 Lungs: Present: Normal Breath Sounds Neuro: Present: Alert and responsive, No focal deficits noted, Cranial nerves grossly intact Vascular: Present: Color/Temperature (Right foot is warm and pink. Patient has excellent Doppler signals.) Abdomen: Present: Soft - VTE Documentation of Mechanical Device: Intermittent pneumatic compression device Results 02/03/18 06:20 02/03/18 06:20 Lab Results, Last 24 hours 02/03/18 02/03/18 02/03/18 00:15 06:20 06:20 WBC 10.9 Hgb 8.3 L Hct 25.5 L Plt Count 251 APTT 59.1 H Sodium 136 Potassium 3.9 Chloride 107 Carbon Dioxide 20 L BUN 11 Creatinine 0.83 Glucose 110 H Calcium 8.3 L Magnesium 2.0 02/03/18 02/03/18 06:20 12:30 WBC Hgb Hct Plt Count APTT 54.6 H 65.4 H Sodium Potassium Chloride Carbon Dioxide BUN Creatinine Glucose Calcium Magnesium Consult Discharge Plan - Plan Referrals: [facility] [Primary Care Provider] - (Patient is going to rehab no PCP appointment needed) Jae Foster MD [Partnered Physician] - 02/24/18 9:45 am ()
--- NOTE | 2018-02-03 18:11 | Physician Discharge Referral ---
ExtendedCare Referral Info Transfer To: ECF/rehabilitation Provider in Charge: Dr. Foster Provider in Charge after Transfer: Other (Rehabilitation physician) Institutional Level of Care: Skilled - Diagnosis (1) PAD (peripheral artery disease) Priority: Primary Status: Chronic (2) Post-op bleeding Status: Resolved (3) Lactic acidosis Status: Resolved Expected Duration of Placement: 1-2 weeks Prognosis: Good Aware of Diagnosis: Patient, Family Aware of Prognosis: Patient, Family - Transfer Medications Prescriptions: OxyCODONE/APAP 10/325 [Percocet 10/325 MG] 1 each PO Q6HR PRN 7 Days #20 tablet PRN Reason: Moderate Pain Rivaroxaban [Xarelto] 20 mg PO QPM #30 tablet Home Medications: Aspirin Enteric Coated [Aspirin EC] 325 mg PO DAILY 10/05/17 [History] Lisinopril [Zestril] 5 mg PO HS 10/05/17 [History] Metoprolol XL (24 HR) Succ [Toprol XL] 25 mg PO HS 10/05/17 [History] Omeprazole [PriLOSEC] 20 mg PO DAILY 10/05/17 [History] Simvastatin [Zocor] 40 mg PO QPM 10/05/17 [History] Ascorbic Acid [Vitamin C] 250 mg PO BID 01/26/18 [History] Ferrous Gluconate 324 mg PO BID 01/26/18 [History] Furosemide [Lasix] 20 mg PO DAILY PRN 01/26/18 [History] Rivaroxaban [Xarelto] 10 mg PO 1700 01/26/18 [History] OxyCODONE/APAP 10/325 [Percocet 10/325 MG] 1 each PO Q6HR PRN 7 Days #20 tablet 02/03/18 [Rx] Rivaroxaban [Xarelto] 20 mg PO QPM #30 tablet 02/03/18 [Rx] Allergies/Adverse Reactions: 3 Allergy/AdvReac Type Severity Reaction Status Date / Time No Known Allergies Allergy Verified 01/26/18 07:23 - Respiratory Orders Smoking Cessation: Smoking cessation has been advised. For more information, call the [facility] Quit Line at 4-035-LGOK-NOW. - Ancillary Orders May use pressure relief devices daily prn, May consult with Dentist, [employer], Inventory Planner PRN - Advance Directives Code Status: Full Code - Mobility Orders Ambulate - Rehabiliation Orders Rehab Potential: Good Rehab Orders: ROM Exercises, Evaluation for Physical Therapy, Evaluation for Occupational Therapy - Treatments Skin tear care topically daily PRN per policy List/Other: Dry dressings to right lower extremity surgical incisions when necessary for drainage. - Diet Orders Regular CERTIFICATION: I certify that the transfer of the above named patient to an Extended Care Facility is necessary for the continuing treatment of the diagnosis listed. The above information is true and accurate reflection of patient's current condition. Confidential - Redisclosure prohibited without a patient's written consent.
[2018-02-03] MEDS ORDERED: *HR* Rivaroxaban 10 MG TABLET PO SCH (20:05)
[2018-02-03] MEDS: Metoprolol XL (24 HR) Succ 25 MG TAB.ER.24H PO SCH (20:05)
--- NOTE | 2018-02-03 23:51 | Internal Med Progress Note ---
Date of Encounter: 02/04/18 Time of Encounter: 17:00 - Assessment and plan (1) PAD (peripheral artery disease) Current Visit: No Status: Chronic Assessment and plan: Stable. Treatment as per primary service. The patient is on IV heparin drip. He will be switched to by mouth Xareltol today evening. The wound is looking good. His postop anemia is stable. (2) Acute blood loss as cause of postoperative anemia Current Visit: Yes Status: Acute Assessment and plan: His hemoglobin is stable. Hemoglobin is 8.3 today. It was 7.1 days ago. (3) Pulmonary embolism on right Current Visit: No Status: Acute Assessment and plan: This patient sustained a right-sided pulmonary embolism in September 2017. He was taking Xarelto today evening. home. We will switch him back to that medication today evening. His IV heparin drip will be discontinued. (4) Hypertension Current Visit: Yes Status: Chronic Assessment and plan: His blood pressure is under control. We will continue Toprol-XL and lisinopril. Qualifiers: Hypertension type: essential hypertension Qualified Code(s): I10 - Essential (primary) hypertension - Time Spent With Patient Total time spent is greater than 50% in coordination of care (as documented) at patient's floor/unit and/or counseling patient: 25 - 35 minutes - Subjective Interval history: The patient feels pretty good. His pain in the right leg is under control. Denies chest pain, dyspnea, coughing and wheezing. Denies abdominal pain, nausea and vomiting. He has normal urination. He can ambulate on his own without assistance. - Constitutional Vitals: Temp Pulse Resp BP Pulse Ox 100.1 F H 88 19 101/51 95 02/03/18 19:19 02/03/18 19:19 02/03/18 19:19 02/03/18 19:19 02/03/18 19:19 General appearance: Present: A&O X 3, pleasant, no acute distress - Respiratory Respiratory exam: Present: CTAB. Absent: rales, respiratory distress, rhonchi, wheezes - Cardiovascular Cardiovascular exam: Present: RRR. Absent: diastolic murmur, gallop, systolic murmur - Incison Incision: Present: intact. Absent: draining, inflamed - Skin Skin exam: Present: dry, intact Internal Medicine: Result - Labs CBC & Chem 7: 02/03/18 06:20 02/03/18 06:20 Labs: Short CBC 02/03/18 Range/Units 06:20 WBC 10.9 (4.3-11.1) K/mcL Hgb 8.3 L (12.9-16.9) g/dL Hct 25.5 L (37.5-50.1) % Plt Count 251 (140-400) K/mcL Neutrophils # 7.7 (1.6-8.9) K/mcL BMP 02/03/18 06:20 Sodium 136 Potassium 3.9 Chloride 107 Carbon Dioxide 20 L BUN 11 Creatinine 0.83 Glucose 110 H Calcium 8.3 L - ABG Interpretation ABG results: ABG ABG pH 7.47 pH Units (7.32-7.45) H 01/29/18 04:43 ABG pCO2 32 mmHg (35-45) L 01/29/18 04:43 ABG pO2 58 mmHg (85-104) L 01/29/18 04:43 ABG O2 Saturation 92 % (95-98) L 01/29/18 04:43 PT/INR, D-dimer PT 12.8 Seconds (9.4-12.1) H 01/27/18 08:28 - VTE Documentation of Mechanical Device: Intermittent pneumatic compression device Consult Discharge Plan - Plan Additional Instructions: The patient is waiting for a [facility]. He will likely go there, when the bed is available. Dry dressing to right groin and right lower quadrant incision to control serous drainage. This is to be changed daily and when necessary. Continue occupational and physical therapy upon discharge from [facility]. [facility]Primary Care Provider[facility] - (Patient is going to rehab no PCP appointment needed) Jae Foster MD [Partnered Physician] - 02/24/18 9:45 am () Prescriptions: OxyCODONE/APAP 10/325 [Percocet 10/325 MG] 1 each PO Q6HR PRN 7 Days #20 tablet PRN Reason: Moderate Pain Gabapentin [Neurontin] 200 mg PO TID #90 capsule Rivaroxaban [Xarelto] 20 mg PO QPM #30 tablet
[2018-02-04] MEDS: *HR* OxyCODONE/APAP 10/325 TABLET PO PRN ×3 (05:41→19:24)
[2018-02-04] MEDS: Gabapentin 100 MG CAPSULE PO SCH ×3 (08:19→20:24)
[2018-02-04] MEDS: Ascorbic Acid 500 MG TABLET PO SCH ×2 (08:19→20:24)
[2018-02-04] MEDS: Sennosides 8.6 MG TABLET PO SCH ×2 (08:19→20:24)
[2018-02-04] MEDS: Aspirin Enteric Coated 325 MG Tablet PO SCH (08:19)
--- NOTE | 2018-02-04 09:54 | Discharge Summary ---
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 (2) Post-op bleeding Priority: Secondary Status: Resolved Qualifiers: Surgical complication system/body Area: circulatory system Procedure type: circulatory, unspecified Qualified Code(s): I97.618 - Postprocedural hemorrhage of a circulatory system organ or structure following other circulatory system procedure (3) Lactic acidosis Priority: Secondary Status: Resolved (4) Anemia Priority: Secondary Status: Chronic Comments: Patient was diagnosed as having an anemia prior to surgery. He had received 2 previous blood transfusions at the [facility] prior to this operation. Qualifiers: Anemia type: unspecified type Qualified Code(s): D64.9 - Anemia, unspecified - Hospital Course Hospital course: Mr. Sena is a 72 year old male With severe peripheral vascular disease. He is status post a previous aortobifemoral bypass graft. The patient has developed degenerative pseudoaneurysms at the femoral anastomotic area bilaterally greater on the right side than on the left. He also has diffuse peripheral vascular occlusive disease. This involves the profunda femoris artery and superficial femoral artery. He required a very extensive operation to repair the right femoral pseudoaneurysm as well as to endarterectomize the profunda femoris artery. He also had a right femoral to [id number] popliteal artery bypass graft and endarterectomy of the [id number]-tay-[id number] popliteal artery. His graft was extremely fragile as was the adherent robinson vessel. He had extensive blood loss during his operation due to the scarring and fragility of the robinson vessel and the graft. He underwent significant transfusion and return of blood via the [employer]. On postoperative day #1 he was noted to have a thrombosis of his femoral -popliteal bypass graft. He was taken back to the operating room and had a successful thrombectomy. Since that time he has had excellent perfusion to the right lower extremity. The right foot is warm and pink. He has excellent multiphasic Doppler signals. The patient required time in the intensive care unit of approximately 5 days postoperatively. He was extubated approximately 3 days after surgery. The patient was then started on occupational and physical therapy. The patient has been up to chair and walking with a walker. He has edema of the right lower extremity that is slowly improving. The patient is felt fit for discharge today. Patient will require inpatient rehabilitation. He will resume his Xarleto medication. He will also receive a 1 month course of Neurontin therapy to help control his right lower extremity pain. The patient has chronic anemia which is [facility]. - Time Spent with Patient Total time spent providing and/or coordinating discharge services: - Discharge Medications Prescriptions: OxyCODONE/APAP 10/325 [Percocet 10/325 MG] 1 each PO Q6HR PRN 7 Days #20 tablet PRN Reason: Moderate Pain Gabapentin [Neurontin] 200 mg PO TID #90 capsule Rivaroxaban [Xarelto] 20 mg PO QPM #30 tablet Home Medications: Aspirin Enteric Coated [Aspirin EC] 325 mg PO DAILY 10/05/17 [History] Lisinopril [Zestril] 5 mg PO HS 10/05/17 [History] Metoprolol XL (24 HR) Succ [Toprol XL] 25 mg PO HS 10/05/17 [History] Omeprazole [PriLOSEC] 20 mg PO DAILY 10/05/17 [History] Simvastatin [Zocor] 40 mg PO QPM 10/05/17 [History] Ascorbic Acid [Vitamin C] 250 mg PO BID 01/26/18 [History] Ferrous Gluconate 324 mg PO BID 01/26/18 [History] Furosemide [Lasix] 20 mg PO DAILY PRN 01/26/18 [History] Rivaroxaban [Xarelto] 10 mg PO 1700 01/26/18 [History] OxyCODONE/APAP 10/325 [Percocet 10/325 MG] 1 each PO Q6HR PRN 7 Days #20 tablet 02/03/18 [Rx] Rivaroxaban [Xarelto] 20 mg PO QPM #30 tablet 02/03/18 [Rx] Gabapentin [Neurontin] 200 mg PO TID #90 capsule 02/04/18 [Rx] Allergies/Adverse Reactions: 3 Allergy/AdvReac Type Severity Reaction Status Date / Time No Known Allergies Allergy Verified 01/26/18 07:23 Date of admission: 01/26/18 19:22 [facility] care physician: [facility] Consults: 01/26/18 19:26 Consult to Pulmonology [CONS] Routine Consulting Provider: Pulm Crit Care & Sleep Berna Reason for Consult: prolonged OR/massive blood loss/mech. ventilation Time Notified: 19:00 Call Completed: Yes 01/28/18 11:52 Consult to Nutrition [CONS] Routine Comment: Consulting Provider: NUTRITION Reason for Dietary Consult: Tube Feed Start & Manage 01/31/18 16:24 Consult to Physical Therapy [CONS] Routine Comment: Evaluate, develop and implement POC Reason for Consult: Assessment for activities of daily living and need for inpatient post discharge rehabilitation Does patient have active BEDREST order?: No Is patient medically & hemodynamically stable?: Yes 01/31/18 16:25 Consult to Occupational Therapy [CONS] Routine Comment: Evaluate, develop and implement POC Reason for Consult: Evaluation for inpatient rehabilitation upon discharge Does patient have active BEDREST order?: No Is patient medically & hemodynamically stable?: Yes Consult to Communication Analyst [CONS] Routine Reason for SW Consult: Evaluation for inpatient rehabilitation upon discharge 02/02/18 08:25 Consult to Hospitalist [CONS] Routine Consulting Provider: Hospitalist Geno Reason for Consult: Medical care management Call Completed: No Procedure(s) Performed: Right femoral pseudoaneurysm repair with right iliofemoral bypass, profunda endarterectomy, and right femoral below-knee popliteal artery bypass graft. Take back on postop day 1 for thrombectomy of right femoral popliteal bypass graft. Discharging clinician: Jae Foster Anticipated date of discharge: 02/04/18 Exam Vital Signs, Last 4 Hours Temp Pulse Resp BP Pulse Ox 02/04/18 07:52 98.7 F 79 20 90/67 99 General: Present: Conversant, No Apparent Distress, Well developed, Well nourished HEENT: Present: Atraumatic Neck: Absent: JVD Cardiac: Present: Reg Rate and Rhythm, Normal S1 and S2 Lungs: Present: Normal Breath Sounds Neuro: Present: Alert and responsive, No focal deficits noted, Cranial nerves grossly intact Abdomen: Present: Soft, Non-tender Vascular: Present: Normal capillary refill, Color/Temperature (Right foot is warm and pink. Left foot is pale. Doppler signals are present bilaterally greater on the right side than on the left. Patient has known left superficial femoral artery occlusion.), Surgical incisions (Mild yellow tainted serous drainage from right retroperitoneal and right groin incision.) Skin: Present: No rashes noted on visualized skin - Patient Status Disposition: Transfer Inpatient Rehab Fac Condition: Good Functional capacity at discharge: uses cane/walker Overall status at discharge: patient is progressing back to baseline - Discharge Instructions Follow Up With: [facility] [Primary Care Provider] - (Patient is going to rehab no PCP appointment needed) Jae Foster MD [Partnered Physician] - 02/24/18 9:45 am () Additional Instructions: Dry dressing to right groin and right lower quadrant incision to control serous drainage. This is to be changed daily and when necessary. Continue occupational and physical therapy upon discharge from [facility]. - Diet and Activity Activity: as per physical therapy Diet: low fat, low cholesterol - VTE Documentation of Mechanical Device: Intermittent pneumatic compression device
[2018-02-04] MEDS: OXYCODONE Oral CONC 10 MG/0.5 ML ORAL.SYG SL PRN ×2 (10:16→17:06)
[2018-02-04] MEDS ORDERED: *HR* Rivaroxaban 10 MG TABLET PO SCH (17:00)
[2018-02-04] MEDS: Metoprolol XL (24 HR) Succ 25 MG TAB.ER.24H PO SCH (20:24)
--- NOTE | 2018-02-04 21:05 | Internal Med Progress Note ---
Date of Encounter: 02/04/18 Time of Encounter: 19:00 - Assessment and plan (1) PAD (peripheral artery disease) Status: Chronic Assessment and plan: The patient is getting better. There is only mild pain in the area of right leg. Today afternoon he he will be switched from IV heparin to oral Xarelto. See notes from vascular surgery. (2) Acute blood loss as cause of postoperative anemia Status: Acute Assessment and plan: The patient is hemodynamically stable. Yesterday hemoglobin was 8.3. It will be checked tomorrow morning. He's mildly hypotensive. It is asymptomatic. He makes a fair amounts of urine. He's getting IV fluids. (3) Pulmonary embolism on right Status: Acute Assessment and plan: His pulmonary embolism happened in September 2017. He will continue his Xarelto after-discharge. (4) Hypertension Status: Chronic Assessment and plan: There is no need for antihypertensives at this time. Qualifiers: Hypertension type: essential hypertension Qualified Code(s): I10 - Essential (primary) hypertension - Time Spent With Patient Total time spent is greater than 50% in coordination of care (as documented) at patient's floor/unit and/or counseling patient: - Subjective Interval history: The patient feels good. His right leg pain is under control. Denies chest pain. Denies difficulty breathing, coughing and wheezing. Denies abdominal pain, nausea and vomiting. He makes fair amounts of urine. - Constitutional Vitals: Temp Pulse Resp BP Pulse Ox 98.4 F 88 18 82/61 97 02/04/18 19:12 02/04/18 19:12 02/04/18 19:12 02/04/18 19:12 02/04/18 19:12 General appearance: Present: A&O X 3, no acute distress, obese - Respiratory Respiratory exam: Present: CTAB. Absent: accessory muscle use, rales, rhonchi, wheezes - Cardiovascular Cardiovascular exam: Present: RRR, +S1, +S2. Absent: diastolic murmur, gallop, rubs, systolic murmur - GI/Abdominal GI/Abdominal exam: Present: normal bowel sounds, soft, no peritoneal signs. Absent: distended, tenderness - Skin Skin exam: Present: dry, intact Additional comments: The surgical wound to in the area of right leg is healing well. Internal Medicine: Result - Labs CBC & Chem 7: 02/05/18 13:58 02/03/18 06:20 - ABG Interpretation ABG results: ABG ABG pH 7.47 pH Units (7.32-7.45) H 01/29/18 04:43 ABG pCO2 32 mmHg (35-45) L 01/29/18 04:43 ABG pO2 58 mmHg (85-104) L 01/29/18 04:43 ABG O2 Saturation 92 % (95-98) L 01/29/18 04:43 PT/INR, D-dimer PT 12.8 Seconds (9.4-12.1) H 01/27/18 08:28 - VTE Documentation of Mechanical Device: Intermittent pneumatic compression device Consult Discharge Plan - Plan Instructions: Pulmonary Embolism (DC), Peripheral Vascular Disorders (DC) Additional Instructions: The patient is waiting for a [facility] facility bed. He will likely go there, when the bed is available. Dry dressing to right groin and right lower quadrant incision to control serous drainage. This is to be changed daily and when necessary. Continue occupational and physical therapy upon discharge from [facility]. [facility]errals: [facility] [Primary Care Provider] - (Patient is going to rehab no PCP appointment needed) Jae Foster MD [Partnered Physician] - 02/24/18 9:45 am () Prescriptions: OxyCODONE/APAP 10/325 [Percocet 10/325 MG] 1 each PO Q6HR PRN 7 Days #20 tablet PRN Reason: Moderate Pain Gabapentin [Neurontin] 200 mg PO TID #90 capsule Rivaroxaban [Xarelto] 20 mg PO QPM #30 tablet
[2018-02-05] MEDS: OXYCODONE Oral CONC 10 MG/0.5 ML ORAL.SYG SL PRN (02:41)
[2018-02-05] MEDS: *HR* OxyCODONE/APAP 10/325 TABLET PO PRN ×2 (07:44→14:10)
[2018-02-05] MEDS: Sennosides 8.6 MG TABLET PO SCH (07:44)
[2018-02-05] MEDS: Gabapentin 100 MG CAPSULE PO SCH ×2 (07:45→14:11)
[2018-02-05] MEDS: Ascorbic Acid 500 MG TABLET PO SCH (07:45)
[2018-02-05] MEDS: Aspirin Enteric Coated 325 MG Tablet PO SCH (07:45)
[2018-02-05 14:11] LABS: Hematocrit 25.8 % (37.5-50.1); Hemoglobin 8.3 g/dL (12.9-16.9)
[2018-02-05 15:13] VITALS: BP 132/73
== END 2018-02-05 16:30 | DRG 270 ==
LOC: SAMDAY 06:19 → SUATTDRO 19:22 → ICNU 19:22 → 2NNU 02-02 16:27
PROVIDERS: ADMIT Surgery Vascular Surgery; ATTEND Internal Medicine

== ENCOUNTER 2018-06-29 09:16 | Inpatient (IN) ==
[2018-06-29] MEDS ORDERED: Albuterol 2.5 MG/3 ML NEBULIZER IH ONE (09:38)
[2018-06-29] MEDS ORDERED: Ringers Solution, Lactated 1,000 ML IVC SCH (09:45)
[2018-06-29] MEDS ORDERED: *HR* Rocuronium Bromide 50 MG/5 ML VIAL ONE (10:28)
[2018-06-29] MEDS ORDERED: Dexamethasone 4 MG/ML VIAL ONE (10:28)
[2018-06-29] MEDS ORDERED: *HR* Phenylephrine 10 MG/ML VIAL ONE (10:28)
[2018-06-29] MEDS ORDERED: Ondansetron 4 MG/2 ML VIAL ONE (10:28)
[2018-06-29] MEDS ORDERED: Lidocaine -MPF 4% 5 ML AMPUL ONE (10:28)
[2018-06-29] MEDS ORDERED: *HR* FentaNYL (PF) 100 MCG/2 ML VIAL ONE (10:28)
[2018-06-29] MEDS ORDERED: Lidocaine -MPF 2% 2 ML VIAL ONE (10:28)
[2018-06-29] MEDS ORDERED: *HR* Propofol 200 MG/20 ML VIAL IVP ONE (10:28)
[2018-06-29] MEDS ORDERED: *HR* Heparin 5,000 UNIT/ML VIAL ONE ×3 (10:29→17:07)
[2018-06-29] MEDS ORDERED: Heparin 1,000 UNITS/500 mL 500 ML ONE (10:32)
[2018-06-29] MEDS ORDERED: *HR* Remifentanil 2 MG VIAL IVP ONE (10:35)
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
[2018-06-29] MEDS ORDERED: EPHEDrine 50 MG/ML VIAL ONE (10:37)
[2018-06-29] MEDS ORDERED: *HR* Midazolam HCl 2 MG/2 ML VIAL ONE (11:15)
[2018-06-29] MEDS ORDERED: Heparin 1,000 UNITS/500 mL 1,500 ML ONE (11:39)
--- NOTE | 2018-06-29 11:47 | History & Physical Report ---
Date of Encounter: 06/29/18 Time of Encounter: 11:40 24 Hour HP Update - Instructions Instructions: If the History and Physical is less than 30 days old and was completed prior to A.M. admission and or procedure and has NOT been updated on calendar day of procedure please complete this update prior to performing procedure. - Update Patient reports changes in Medical Condition: No Changes in examination, assessment, or condition: No Changes in Medication: No Preop tests/diagnostics Reviewed: Yes Surgery Remains Indicated: Yes Consent for Planned Operative Procedure(s) Verified: Yes - Pre-Operative Checklist Preoperative Checklist Indicated: Yes Prophylactic Antibiotic Ordered: Yes Home Medications Include Beta Marvin: Yes Beta Marvin Taken Today (Day of Surgery): Yes Beta Marvin Taken Yesterday (Day Prior to Surgery): Yes Is VTE Prophylaxis Indicated?: Yes
[2018-06-29] MEDS ORDERED: *HR* Morphine 10 MG/ML VIAL ONE ×2 (15:35→18:05)
[2018-06-29] MEDS ORDERED: *HR* Remifentanil 1 MG VIAL IVP ONE (16:24)
[2018-06-29 17:06] LABS: ABG Base Excess -3 mEq/L (-2 to 3); ABG HCO3 23 mEq/L (21-27); ABG Oxygen Saturation 100 % (95-98); ABG PCO2 46 mmHg (35-45); ABG PH 7.31 pH Units (7.32-7.45); ABG PO2 241 mmHg (85-104); ABG TCO2 25 mEq/L (20-26); Blood Gas Modality ASSIST CONTROL; Blood Gas PEEP 5 cm H2O; Blood Gas VT 550 cc
[2018-06-29] MEDS ORDERED: *HR* Magnesium Sulfate 1 GM/2 ML VIAL ONE (17:12)
[2018-06-29 17:29] LABS: Hematocrit 31.2 % (37.5-50.1)
[2018-06-29 17:30] LABS: Hemoglobin 10.3 g/dL (12.9-16.9)
--- NOTE | 2018-06-29 18:06 | Operative Note ---
Date of procedure: 06/29/18 Pre-op diagnosis: PAD/right leg bypass graft thrombosis Post-op diagnosis: same Procedure: redo thrombectomy of right fem-below knee popliteal bypass graft thrombectomy of right common femoral artery/distal aspect of right limb of aortobifemoral bypass graft endarterectomy with bovine patch of right BK popliteal artery Complications: none Anesthesia: GETA Surgeon: Jae Foster Was there an hair assistant present: No Estimated blood loss (cc): 1,000 Specimen: 0 Condition: stable Disposition: PACU Procedure in Detail: History Isaac Sena is a 72-year-old white male who has significant peripheral vascular occlusive disease. He is status post previous aortobifemoral bypass graft many years ago. The patient underwent an extensive revascularization in January for the right lower extremity. That included a femoral to below the knee popliteal artery bypass graft. On routine outpatient follow-up duplex scanning had identified that he had thrombosed the femoral-popliteal bypass graft with an ankle-brachial index of approximately 0.5 on the right. On the left the ankle -brachial index was 0.67. Because of the severe nature of his vascular disease it was recommended to proceed with graft thrombectomy and an early time when the patient is feeling well in order to preserve the right lower extremity for his long as possible. Procedure After informed consent was obtained the patient was taken to the operating room. General endotracheal anesthesia was established under arterial line pressure monitoring. The abdomen and right lower extremity were sterilely prepped and draped. A timeout protocol was observed. The initial incision was made through the previous incision at the [id number] popliteal location. Dissection was carried down into the previous surgical site. A dense and thick inflammatory tissue was encountered with significant obliteration of all normal anatomic planes. This led to a tedious and extended dissection in order to try to identify the synthetic graft and the jena vessel. The vessel was rather lateral in the leg and also was difficult to dissect because of the surrounding scar tissue. Eventually the femoral to [id number] popliteal artery anastomotic area was identified and isolated as was the runoff into the below- the-knee popliteal artery. This vessel appeared to be contracted and inflamed. A transverse graftotomy was made over the distal aspect of the femoral- popliteal bypass graft after 5000 units of heparin were administered intravenously. Upon opening the graft there was minimal debris at this level. A 4 Eston[place] Mey catheter and 5 Eston[place] Mey catheter was then passed retrograde through the graft in an attempt to try to achieve a satisfactory thrombectomy. This was unsuccessful and though chronic thrombus and debris was removed and no blood flow was achieved. Therefore it was obvious that the patient needed to have a more proximal opening on the graft so that the obstructing material could be removed. In addition it was clear that one passing a 4 [place] Mey catheter distally it would not pass through the anastomosis. Therefore the distal artery needed to be addressed first. The extension and exposure of the right below the knee popliteal artery needed to be enlarged. Therefore the dissection was carried more distally. This allowed me to identify where the inflammatory and occlusive change of the vessel occurred and that the lumen was reestablished. After this dissection was complete a longitudinal arteriotomy was then made from the graft toe to and through the area of occlusion. A formal endarterectomy was then necessary of the below-knee popliteal artery in order to remove the occlusive material and restore a lumen. With this done a bovine pericardial patch was then fashioned over this arteriotomy and a patch angioplasty was performed using 2 6-0 Prolene sutures. A small opening was left on the patch suture line in order to vent this after completion of the proximal graft thrombectomy. Attention was then directed to the groin area. Using the lower portion of the right groin incision this was opened and extended. The femoral-popliteal bypass graft was identified in the subsartorial space and controlled. A transverse graftotomy was made and then the 4 [place] Mey catheter was passed. The catheter could be passed into the iliac system but no significant arterial flow was identified. I was concerned that there was a ball valve type of process involved and so therefore a more proximal exposure was necessary. Though I did not intend to involve the synthetic aortobifemoral graft it was now necessary to get control of this area. Another tedious dissection was then undertaken in order to expose and explore this region to get proximal control. After this was accomplished after significant effort a second incision was made over the proximal portion of the femoral-popliteal graft over the anastomosis to the synthetic aortobifemoral graft. Upon opening this area a large amount of chronic thrombus was identified. This appeared to be the ball valve effect which would not permit pulsatile flow because of this material. Therefore this needed to be broken up and needed to be extracted piece by piece as it would not be removed using the Mey catheters. After this was accomplished the wound was irrigated. I did demonstrate retrograde flow from the profunda which was then clamped. This area or call was copiously irrigated. The rico of the graft anastomotic area that had been opened was then closed with a 6-0 Prolene. Then the second graftotomy that had been made was closed with 6-0 Prolene. This area was then flushed distally which demonstrated excellent pulsatile flow. The graft was then back flushed and clamped proximally. After the final few sutures were placed all clamps removed and pulsatile flow was restored into the popliteal system and down into the right calf. Doppler signals were identified over the posterior tibial and the dorsalis pedis arteries. The wounds were irrigated. Hemostasis was achieved. The wounds were then closed in layers using absorbable suture. Dry sterile dressings were applied. One unit of blood was transfused intraoperatively due to the extensive dissection necessary in this very complicated anatomic area. The patient was extubated in the operating room and taken to the recovery room in stable condition.
[2018-06-29] MEDS ORDERED: *HR* HYDROmorphone (PF) 1 MG/ML SYRINGE ONE (19:02)
[2018-06-29] MEDS ORDERED: *HR* Labetalol 20 MG/4 ML SYRINGE IVP PRN (19:04)
[2018-06-29] MEDS ORDERED: *HR* Promethazine 25 MG/ML VIAL IVP PRN (19:04)
[2018-06-29] MEDS: *HR* HYDROmorphone (PF) 1 MG/ML SYRINGE IVP PRN ×2 (19:04→19:24)
--- NOTE | 2018-06-29 20:14 | Anesthesia Evaluation Post Op ---
Date of Encounter: 06/29/18 Time of Encounter: 20:14 - Vital Signs Vital Signs: Vital Signs/O2 Sat, Most Current Temp Pulse Resp BP Pulse Ox 97.0 F L 81 16 102/74 96 06/29/18 19:54 06/29/18 19:54 06/29/18 19:54 06/29/18 19:54 06/29/18 19:54 - Lungs Lungs: Clear Ascult./Percussion - Airway Airway: Non-obstructed - Cardiovascular Regular Rate - Mental Status Mental Status: Alert & Oriented, Answers Appropriately - Pain Pain Scale: 3 Pain Scale used: Numeric (1 - 10) - Nausea Vomiting Nausea Vomiting: Not Present - Hydration Hydration: Ice chips, Santoyo catheter - Discharge PostOp Status: Transfer Patient to floor
[2018-06-29] MEDS ORDERED: *HR* HYDROcodone/Acet 5/325 mg TABLET PO PRN (20:23)
[2018-06-29] MEDS ORDERED: Acetaminophen 325 MG TABLET PO PRN (20:23)
[2018-06-29] MEDS ORDERED: *HR* OxyCODONE Immed Rel 5 MG TABLET PO PRN (20:23)
[2018-06-29] MEDS ORDERED: Naloxone 0.4 MG/ML INJ IVP PRN (20:23)
[2018-06-29] MEDS ORDERED: Metoprolol XL (24 HR) Succ 25 MG TAB.ER.24H PO SCH (21:00)
[2018-06-30 04:43] LABS: Hematocrit 28.9 % (37.5-50.1); Hemoglobin 10.1 g/dL (12.9-16.9); Immature Granulocytes % 0.5 % (0-4); Lymphocytes % 8.8 %; Mean Corpuscular HGB Conc 34.9 g/dL (31.6-35.5); Mean Corpuscular Volume 94.4 fL (83.0-100.0); Mean Platelet Volume 10.4 fL (9.4-12.4); Monocytes % 7.8 %; Platelet Count 143 K/mcL (140-400); Red Blood Count 3.06 M/mcL (4.19-5.50); Red Cell Distribution Width 16.9 % (11.5-14.5); Segmented Neutrophils % 82.8 %
[2018-06-30 04:44] LABS: Basophils % 0.1 %; Monocytes # 0.9 K/mcL (0.0-1.3); Neutrophils # 9.7 K/mcL (1.6-8.9)
[2018-06-30 04:58] LABS: BUN/Creatinine Ratio 23 (6-26); Blood Urea Nitrogen 17 mg/dL (8-23); Calcium 8.5 mg/dL (8.6-10.3); Carbon Dioxide 21 mEq/L (23-29); Chloride 110 mEq/L (98-107); Glucose 166 mg/dL (70-105); Osmolality,Calculated 289 (280-300); Potassium 4.2 mEq/L (3.5-5.1); Sodium 137 mEq/L (136-145); eGFR For Non-African Americans > 60 (> 60)
[2018-06-30 16:32] VITALS: BP 101/53
--- NOTE | 2018-06-30 17:50 | Discharge Summary ---
Orders not resulted at time of discharge: Pending orders 06/23/18 10:44 Red Blood Cells [BBK] Routine Date of Encounter: 06/30/18 Time of Encounter: 17:48 - Discharge Diagnosis (1) Thrombosis of common femoral artery Priority: Primary Status: Acute Comments: The patient was found to have thrombosis of the common femoral artery and distal aspect of the right limb of the aortobifemoral bypass graft (2) PAD (peripheral artery disease) Priority: Primary Status: Chronic Comments: Patient has significant lower extremity vascular disease and presented with thrombosis of the right femoral-popliteal bypass graft - Hospital Course Hospital course: Mr. Sena is a 72 year old male With severe peripheral vascular disease. He has a very complicated past history including a previous aortobifemoral bypass graft and an extensive revascularization of the right lower extremity for limb salvage in January 2018. Patient was found have a thrombosed right lower extreme bypass grafting was admitted for surgery for this issue. Patient underwent surgery yesterday. He had uncomplicated course. Surgery was difficult as expected due to his previous surgery and his anatomy. Patient was felt fit for discharge on the afternoon of postoperative day #1. Patient was seen by physical therapy prior to discharge. Instructions regards to his diet medications and activities as well as wound care were reviewed with the patient prior to discharge. - Time Spent with Patient Total time spent providing and/or coordinating discharge services: - Discharge Medications Prescriptions: HYDROcodone/Acet 5/325 mg [Whitman 5-325 mg] 1 tab PO Q6HR PRN 7 Days #20 tablet PRN Reason: Moderate Pain Home Medications: Metoprolol XL (24 HR) Succ [Toprol Xl] 25 mg PO HS 10/05/17 [History] Omeprazole [PriLOSEC] 20 mg PO DAILY 10/05/17 [History] Simvastatin [Zocor] 40 mg PO DAILY 10/05/17 [History] Ferrous Gluconate 324 mg PO BID 01/26/18 [History] Rivaroxaban [Xarelto] 10 mg PO DAILY 01/26/18 [History] Docusate [Colace] 200 mg PO QPM PRN 06/29/18 [History] Losartan [Cozaar] 25 mg PO QPM 06/29/18 [History] HYDROcodone/Acet 5/325 mg [Whitman 5-325 mg] 1 tab PO Q6HR PRN 7 Days #20 tablet 06/30/18 [Rx] Allergies/Adverse Reactions: 3 Allergy/AdvReac Type Severity Reaction Status Date / Time No Known Allergies Allergy Verified 06/29/18 10:36 Date of admission: 06/29/18 20:22 Primary care physician: PCP [place] Consults: 06/30/18 13:23 Consult to Physical Therapy [CONS] Routine Comment: Evaluate, develop and implement POC Reason for Consult: Evaluate potential needs at home. Anticipate discharge later today. Does patient have active BEDREST order?: No Is patient medically & hemodynamically stable?: Yes Procedure(s) Performed: Redo Right femoral-popliteal bypass graft thrombectomy Right common femoral artery/external iliac artery thrombectomy Right below-knee popliteal artery endarterectomy with bovine pericardial patch angioplasty Discharging clinician: Jae Foster Anticipated date of discharge: 06/30/18 Exam Vital Signs, Last 4 Hours Temp Pulse Resp BP Pulse Ox 06/30/18 16:29 98.2 F 66 18 101/53 97 06/30/18 14:50 78 16 113/58 100 General: Present: Conversant, No Apparent Distress, Well developed, Well nourished HEENT: Present: Atraumatic Neck: Absent: JVD Abdomen: Present: Soft Vascular: Present: Surgical incisions (Surgical incisions are covered with dressings which are intact and dry.), Other (Patient has a warm right foot. He has Doppler signals over the dorsalis pedis and posterior tibial artery areas. Patient has edema of the right lower extremity as expected following surgery.) Skin: Present: No rashes noted on visualized skin - Patient Status Disposition: Home Health Service Condition: Good Functional capacity at discharge: uses cane/walker Overall status at discharge: patient is progressing back to baseline - Discharge Instructions Follow Up With: [place],PCP [Primary Care Provider] - 07/08/18 10:45 am (This appointment is with Dr. Florian in the discharge clinic) Jae Foster MD [Partnered Physician] - 07/21/18 1:30 pm Additional Instructions: Removed surgical dressings from incisions tomorrow afternoon Keep surgical incisions dry for a total of 5 days following surgery No lifting greater than 10 pounds No manual labor No automobile driving Resume usual medications including anticoagulation Focus on daily walking with a goal of 20 minutes twice a day Elevate right lower extremity while sitting Consider use of compression stocking for right lower extremity as needed - Diet and Activity Activity: increase activity as tolerated Diet: low fat, low cholesterol
== END 2018-06-30 18:50 | disposition home health service (06) | DRG 253 ==
LOC: SAMDAY 09:16 → 2NNU 20:22
PROVIDERS: ADMIT Surgery Vascular Surgery; ATTEND Surgery Vascular Surgery